=== PATIENT | male | born 1950 | race Caucasian/White ===

== ENCOUNTER → 2016-07-31 | Outpatient (CLI) | payer OTHER ==
[~2016-07-31] MED LIST: ADVIN25/60 INH; ASPCH81X PO; MULTTAB58 PO; NXM/40 PO; PREG1CAP28 PO; SIMV10TA5 PO; VALS320T2 PO
[2016-07-31 17:54] LABS: ALT/SGPT 39 U/L (12-78); AST/SGOT 26 U/L (15-37); BLOOD UREA NITROGEN 16 mg/dl (7-18); BUN/CREATININE RATIO 11.6 (10-20); CALCIUM 9.3 mg/dl (8.5-10.1); CARBON DIOXIDE 30 mmol/L (21-32); CHLORIDE 101 mmol/L (98-107); GLUCOSE 65 mg/dl (70-99); POTASSIUM 3.9 mmol/L (3.5-5.1); SODIUM 138 mmol/L (136-145)
[2016-07-31 17:56] LABS: ALB/GLOB RATIO 1.1 (0.9-2); ALKALINE PHOSPHATASE 79 U/L (45-117); CHOLESTEROL 143 mg/dl (0-200); CHOLESTEROL/HDL RATIO 3.7; HDL CHOLESTEROL 39 mg/dl; LDL CHOLESTEROL CALCULATED 73 mg/dl; TRIGLYCERIDES 153 mg/dl (0-150); VERY LOW DENSITY LIPOPROT CALC 31 mg/dl
[2016-07-31 20:39] LABS: ESTIMATED AVERAGE GLUCOSE 111 mg/dl; HA1C FLAG Normal (Normal)
--- NOTE | 2016-08-04 13:34 | CODING QUERY MEDICAL NECESSITY ---
CQSUPPORTING DIAGNOSIS NEEDED A supporting diagnosis is required for the test/procedure performed on this patient in order for us to be reimbursed by the patient's insurance. Please provide a supporting diagnosis for the following test/procedure listed below next to the test name along with your signature. *If there is no additional diagnosis for this patient that would support the following test/procedure please document that below next to the test/procedure. Test(s)/Procedure(s) that require a supporting diagnosis: DOS 07/31/16 GLYCATED HEMOGLOBIN ORDERED BY HERNANDO HASSAN Provider Signature: Date: Thank you Cintia Chin Health Information Management Once completed, please kindly fax back to [phone] For questions please call [phone]
== END | disposition home or self-care (01) ==
LOC: C.LABPBG 14:16
PROVIDERS: ATTEND Physician Assistant
DX: Z11.59 Encounter for screening for other viral diseases (principal); Z13.1 Encounter for screening for diabetes mellitus; E78.5 Hyperlipidemia, unspecified

== ENCOUNTER → 2016-11-06 | Outpatient (CLI) | payer OTHER ==
--- NOTE | 2016-11-07 07:37 | PAP/PSG TECHNICIAN REPORT ---
[facility] Butter Maker Polysomnogram Report Study name: None Report date: 11/07/2016 Study date: 11/06/2016 Referring Physician: Etelvina Givens PA-C, PA-C Name: LARA BRANDT Interpreting Physician: Michael Funez D.O. Date of : 1950 Butter Maker: Lucita Fang [facility]. Sex: Male Age: 66 StudyType: PSG Weight: 217 lbs Height: 66 years, Height 5' 9" Neck Circum:18.5 inches BMI: 32.04 Medications: Advair Diskus, Aspirin, Esomeprazole 40 mg, Lyrica 75 mg, Simvastatin 10 mg, Valsartan-HCTZ Patient History 66 yr. old male here for a diagnostic sleep study. Patient complains of snoring, and witnessed apneas. Patient is currently on 2 lpm 02. Test was started on room air. Parameters Monitored NPSG: E1-M2, E2-M1, Fp1-M2, Fp2-M1, F3-M2, F4-M2, F4-M1, C3-M2, C4-M2, C4-M1, O1-M2, O2-M2, O2-M1, T3-M2, T4-M1, P3-M2, P4-M1, CHIN1, CHIN2, HR, EKG, Legs, PFLOW, SNOR, FLOW, CFLOW, Tidal Volume, THOR, ABDO, SpO2, PLTH, CPRESS, ETCO2 Wave, ETCO2, pH Sleep Architecture Sleep Stages Time at Lights Off 11:04:06 PM STAGES Time (min.) TST (%) Time at Lights On 5:39:36 AM Wake 135.5 -- Total Recording Time (TRT) 396.00 min. N1 25.5 10 Total Sleep Period (TSP) 278.0 min. N2 184.0 71 Total Sleep Time (TST) 260.0min. N3 3.0 1 Awake Time 136.0 min. REM 47.5 18 Wake after Sleep Onset 20.5 min. Sleep Efficiency (SE) 66 % Sleep Onset Latency (SOMMER) 115.0 min. Number of Stage 1 Shifts None Awakenings 14 Stage Changes 63 Number of REM periods 3 REM 47.5 18 REM Latency 57.5 min. NREM 212.5 82 Body Position Analysis Supine Right Left Side Prone Vertical Total Sleep Time (min.) 317.3 0.0 0.0 0.00 0.0 3.5 Total Sleep Time (%) 100% 0% 0% 0 0% N/A% Total Sleep Time REM (min.) 47.5 0.0 0.0 None 0.0 0.0 Total Sleep Time NREM (min.) 212.5 0.0 0.0 None 0.0 0.0 Intermittent Wake (min.) 57.3 0.0 74.7 None 0.0 3.5 Total Sleep Period (%) 100% None None None None None Arousals Myoclonus (PLM) * Events Count Index Events Count Index Spontaneous 6 1 Events Awake (PLMW) 141 62.4 Respiratory 11 3.5 Events Asleep w/ Arousal (PLMA) 4 0.9 PLM 4 1 Events Asleep w/o Arousal (PLMS) 52 12.0 Snoring 3 1 Total Asleep 56 12.9 Total 24 6 Total 197 30 Respiratory Analysis * CA OA MA CH H RERA Total Count 40 37 8 0 78 0 163 Index 9.2 8.5 1.8 0 18.0 0 37.6 Mean Duration 23.1 27.0 24.7 0.00 24.3 0.0 24.6 Longest Duration 36.4 57.7 28.9 0.00 28.9 0.0 64.0 Respiratory Event Summary Total Supine ~Supine Right Left Prone REM NREM Apneas Count 85 85 N/A N/A N/A N/A 20 65 Index 19.6 20 N/A N/A N/A N/A 25 18 Hypopneas (4% Desat) Count 78 78 N/A N/A N/A N/A 21 57 Index 18.0 18.0 N/A N/A N/A N/A 26.5 16.1 Apneas & All Hypopneas Count 163 163 N/A N/A N/A N/A 41 122 Index 37.6 38 N/A N/A N/A N/A 51.8 34.4 Respiratory Events ([employer]+All Hyp+RERA) Count 163 163 N/A N/A N/A N/A 41 122 Index 37.6 38 N/A N/A N/A N/A 51.8 34.4 Respiratory Related Arousal Count 11 163 N/A N/A N/A N/A 2 13 Index 3.5 3 N/A N/A N/A N/A 3 4 Snoring Analysis Supine Right Left Prone REM NREM Total Snore duration 10.2 min Snores count 457 N/A N/A N/A 177 280 457 Snore mean duration 1.3 Sec Snores index 105 N/A N/A N/A 223.6 79.1 105.5 TST with snoring (%) 3.9% Desaturation Event Summary: Minimum %SpO2 Event Count Mean/Min/Max Duration(sec.) Desaturation Index % Time In Bed > 90 154 25.5 / 7.0 / 58.5 36.3 64.7 86 - 90 57 22.4 / 7.0 / 58.5 27.3 31.9 81 - 85 2 21.9 / 21.5 / 22.3 9.4 3.3 76 - 80 0 N/A 0.0 0.1 71 - 75 0 N/A 0.0 0.0 66 - 70 0 N/A 0.0 0.0 61 - 65 0 N/A 0.0 0.0 56 - 60 0 N/A 0.0 0.0 51 - 55 0 N/A 0.0 0.0 < 50 0 N/A 0.0 0.0 Total REM NREM Awake <50% 0.0 min. 0.0 min. 0.0 min. 0.0 min. 51 - 60% 0.0 min. 0.0 min. 0.0 min. 0.0 min. 61 - 70% 0.0 min. 0.0 min. 0.0 min. 0.0 min. 71 - 80% 0.5 min. 0.0 min. 0.5 min. 0.0 min. 81 - 90% 138.2 min. 5.3 min. 27.7 min. 105.2 min. 91 - 100% 254.3 min. 42.2 min. 184.0 min. 28.2 min. Average 92 94 93 89 Minimum SpO2 78 82 78 81 Desaturation Event Index 29.4 46.7 33.3 17.3 # Desat. Events below 89% 94 12 47 35 Time(%) with Saturation below 89% 19.9 0.6 4.7 14.6 Time(min.) with Saturation below 89% 78.1 2.3 18.3 57.5 Time (mins) REM (mins) NREM (mins) % of TST SpO2 Below 90% 96 21 N75 10.4 SpO2 Below 88% 24 0 0 6 Heart Rate Analysis Min (bpm) Max (bpm) Average (bpm) Awake 40 127 60 NREM 43 64 50 REM 42 61 51 Overall 42 64 50 Supplemental O2 Values Minimum O2 level: None Value Start Time End Time Butter Maker Comments slept in the supine position. Cardiac arrhythmia and PLMs noted. No bruxism noted. Snoring was noted and scored as a2 on a scale of 0 through 5. (0=no snoring, 5=snoring loud enough to be heard through a closed door or down the [address] way. Oxygen was added at 1:23 am, patient was consistently running 85% and under. did not wake to use the restroom during the night. stated, I got some sleep. the bed was comfortable. The final report will be interpreted and signed by a sleep physician. The completed physician report will then be placed in the patient medical record. Therapy (cm H2O) 0 TIB (min.) 395.5 TST (min.) 260.0 Sleep Onset (min.) 115.0 REM Onset From Sleep (min.) 57.5 Sleep Efficiency % 66 Wakefulness (%) 34 Wakefulness (min.) 136.0 NREM 1 (%) 10 NREM 1 (min.) 25.5 NREM 2 (%) 71 NREM 2 (min.) 184.0 NREM 3 (%) 1 NREM 3 (min.) 3.0 REM (%) 18 REM (min.) 47.5 # Arousals 24 Arousal Index 6 # Snore 457 Snore Index 105.5 AHI 37.6 AHI Supine 38 AHI Non-Supine N/A NREM AHI 34.4 REM AHI 51.8 RDI 37.6 # Obstructive Apnea 37 # Central Apnea 40 # Mixed Apnea 8 # Hypopneas 78 RERAs 0 Total Respiratory Events 182 Time Below SpO2 89% (min.) 20.6 Mean NREM SpO2 (%) 93 Mean REM SpO2 (%) 94 Mean Sleep SpO2 (%) 93 Min NREM SpO2 (%) 78 Min REM SpO2 (%) 82 Position Supine (min.) 317.3 Position Non-supine (min.) 0.0 LM Index Sleep 12.9 LM Index NREM 8.5 LM Index REM 32.8 Mean Heart Rate (bpm) 50 Min Heart Rate (bpm) 42
--- NOTE | 2016-11-10 11:38 | CODING QUERY MEDICAL NECESSITY ---
CQSUPPORTING DIAGNOSIS NEEDED A supporting diagnosis is required for the test/procedure performed on this patient in order for us to be reimbursed by the patient's insurance. Please provide a supporting diagnosis for the following test/procedure listed below next to the test name along with your signature. *If there is no additional diagnosis for this patient that would support the following test/procedure please document that below next to the test/procedure. Test(s)/Procedure(s) that require a supporting diagnosis: DOS 11/06/16 SLEEP STUDY ORDERED BY HERNANDO FORBES Provider Signature: Date: Thank you Cintia Chin Health Information Management Once completed, please kindly fax back to [phone] For questions please call [phone]
--- NOTE | 2016-11-11 10:07 | Sleep Study ---
Sleep Study Report Date of Service: 11/06/2016 Sleep Study Report Clinical data: The patient is a 66-year-old male with a BMI of 32.04. He has a history of snoring and observed apneas. He has shortness of breath. This was an in-lab diagnostic polysomnography. Sleep architecture: The total sleep period was 278 minutes. The total sleep time was 260 minutes. The sleep efficiency was moderately reduced to 66 percent. The sleep latency was prolonged to 115 minutes. The REM latency was normal at 57.5 minutes. There were 3 REM periods during the night. Sleep consisted of stage N1 10 percent, stage N2 71 percent, stage N3 1 percent , stage REM 18 percent. Arousal data: The patient had a total of 24 arousals including 6 spontaneous arousals, 11 respiratory arousals, 4 PLM arousals, and 3 snoring arousals. The arousal index was 6. PLM data: The patient had a total of 56 periodic limb movements of sleep for an index of 12.9. There were 4 arousals associated with limb movements for a PLM arousal index of 0.9. EKG: The underlying cardiac rhythm was normal sinus. There were frequent PVCs. There was some areas of bigeminy. The cardiac rates ranged from 42 to 64 beats per minute. The average heart rate was 50 beats per minute. Respiratory data: The patient had a total of 163 respiratory events including 40 central apneas, 37 obstructive apneas, 8 mixed apneas, and 78 hypopneas. The hypopneas were scored according to the 4 percent desaturation rule. The longest apnea was 57.7 seconds. The average apnea was 27 seconds. The mean duration of the hypopneas was 24.3 seconds. The apnea-hypopnea index was significantly elevated at 37.6 events per hour. This reflects moderately severe obstructive sleep apnea. Oximetry data: The average saturation was 92 percent. The minimum saturation was 78 percent. It is notable that nasal cannula oxygen was initiated at 1:23 a.m. because his saturations were consistently running less than 85 percent. He had a total of 78.1 minutes with saturations less than 89 percent. Miter Saw Operator comments: The patient slept in the supine position for the entire night. Cardiac arrhythmia and PLMS were noted. No bruxism noted. Snoring was noted and scored as a 2 on a scale of 0 through 5. Patient did not awaken to use the restroom during the night. Impressions: 1. Obstructive sleep apnea-moderately severe 2. Cardiac arrhythmia-PVCs Comments: The patient has moderately severe apnea. The majority was obstructive but about 25 percent of the event's were central apneas. This was mainly in the 1st hour of sleep. He had a significant delay in sleep onset of almost 2 hours. There was significant oxygen desaturations. This was known from his prior history is he does wear continuous oxygen at home. He does have underlying lung disease. Clearly the patient needs treatment for his moderately severe sleep apnea. He does have hypertension as a comorbidity. Recommendations: 1. It is suggested that the patient be treated with nasal CPAP. In light of the moderate number of central apneas seen during the 1st night study, it is suggested that he have an in-lab CPAP titration study. 2. It would be advised that the patient try to avoid sleeping in the supine position as there are typically is more respiratory events when supine. 3. The patient has an elevated body mass index of 32.04. A weight reduction program is advised. 4. Further suggestions will be made following the trial of nasal CPAP. 5. Clinical correlation is advised to determine the relative significance of the above-noted cardiac arrhythmia. Copies To 1: Michael Funez DO; Etelvina Givens PA-C; Calixto Rain D.O.
== END | disposition home or self-care (01) ==
LOC: C.NEUR 20:00
PROVIDERS: ATTEND Physician Assistant
DX: R06.81 Apnea, not elsewhere classified (principal); Z99.81 Dependence on supplemental oxygen; Z87.891 Personal history of nicotine dependence; R05 Cough; J60 Coalworker's pneumoconiosis; J44.9 Chronic obstructive pulmonary disease, unspecified

== ENCOUNTER → 2017-01-17 | Outpatient (CLI) | payer OTHER ==
--- NOTE | 2017-01-18 05:43 | PAP/PSG TECHNICIAN REPORT ---
[facility] Boat Laborer Polysomnogram Report Study name: None Report date: 01/18/2017 Study date: 01/17/2017 Referring Physician: Thompson Heller M.D. Name: THOMPSON BRANDT Interpreting Physician: Michael Funez D.O. Date of : 1950 Boat Laborer: Lucita Fang [facility]. Sex: Male Age: 66 StudyType: PSG PAP Weight: Height: 66 years, Height BMI: Medications: Advair Diskus, Aspirin, Esomeprazole 40 mg, Lyrica 75 mg, Simvastatin 10 mg, Valsartan-HCTZ Patient History 66 yr. old male here for titration sleep study. Patients PSG was done on 11/09/16 and had complex sleep apnea with an AHI of 37.6. Parameters Monitored NPSG: E1-M2, E2-M1, Fp1-M2, Fp2-M1, F3-M2, F4-M2, F4-M1, C3-M2, C4-M2, C4-M1, O1-M2, O2-M2, O2-M1, T3-M2, T4-M1, P3-M2, P4-M1, CHIN1, CHIN2, HR, EKG, Legs, PFLOW, SNOR, FLOW, CFLOW, Tidal Volume, THOR, ABDO, SpO2, PLTH, CPRESS, ETCO2 Wave, ETCO2, pH Sleep Architecture Sleep Stages Time at Lights Off 10:06:43 PM STAGES Time (min.) TST (%) Time at Lights On 5:12:13 AM Wake 71.0 -- Total Recording Time (TRT) 425.50 min. N1 15.0 4 Total Sleep Period (TSP) 364.5 min. N2 217.5 61 Total Sleep Time (TST) 354.5min. N3 39.0 11 Awake Time 71.0 min. REM 83.0 23 Wake after Sleep Onset 23.5 min. Sleep Efficiency (SE) 83 % Sleep Onset Latency (SOMMER) 47.5 min. Number of Stage 1 Shifts None Awakenings 9 Stage Changes 38 Number of REM periods 5 REM 83.0 23 REM Latency 50.0 min. NREM 271.5 77 Body Position Analysis Supine Right Left Side Prone Vertical Total Sleep Time (min.) 290.7 0.0 100.6 100.63 0.0 3.0 Total Sleep Time (%) 72% 0% 28% 28 0% N/A% Total Sleep Time REM (min.) 49.5 0.0 33.5 None 0.0 0.0 Total Sleep Time NREM (min.) 204.4 0.0 67.1 None 0.0 0.0 Intermittent Wake (min.) 36.8 0.0 31.2 None 0.0 3.0 Total Sleep Period (%) 72% None None None None None Arousals Myoclonus (PLM) * Events Count Index Events Count Index Spontaneous 1 0 Events Awake (PLMW) 71 60.0 Respiratory 4 0.7 Events Asleep w/ Arousal (PLMA) 0 0.0 PLM 0 0 Events Asleep w/o Arousal (PLMS) 28 4.7 Snoring 3 1 Total Asleep 28 4.7 Total 8 1 Total 99 14 Respiratory Analysis * CA OA MA CH H RERA Total Count 55 7 0 0 255 0 317 Index 9.3 1.2 0.0 0 43.2 0 53.7 Mean Duration 17.1 19.8 0.0 0.00 26.4 0.0 24.6 Longest Duration 26.5 30.8 0.0 0.00 0.0 0.0 52.9 Respiratory Event Summary Total Supine ~Supine Right Left Prone REM NREM Apneas Count 62 33 29 N/A 29 N/A 6 56 Index 10.5 8 17 N/A 17.3 N/A 4 12 Hypopneas (4% Desat) Count 255 210 45 N/A 45 N/A 34 221 Index 43.2 49.6 27 N/A 26.8 N/A 24.6 48.8 Apneas & All Hypopneas Count 317 243 74 N/A 74 N/A 40 277 Index 53.7 57 44 N/A 44 N/A 28.9 61.2 Respiratory Events (Animal Husbandry Professor+All Hyp+RERA) Count 317 243 74 N/A 74 N/A 40 277 Index 53.7 57 44 N/A 44.1 N/A 28.9 61.2 Respiratory Related Arousal Count 4 243 0 N/A 0 N/A 0 4 Index 0.7 1 0 N/A 0 N/A 0 1 Snoring Analysis Supine Right Left Prone REM NREM Total Snore duration 14.1 min Snores count 276 N/A 274 N/A 51 499 550 Snore mean duration 1.5 Sec Snores index 65 N/A 163 N/A 36.9 110.3 93.1 TST with snoring (%) 4.0% Desaturation Event Summary: Minimum %SpO2 Event Count Mean/Min/Max Duration(sec.) Desaturation Index % Time In Bed > 90 215 22.5 / 9.0 / 60.0 186.5 16.4 86 - 90 254 20.8 / 9.0 / 55.3 55.5 65.2 81 - 85 7 23.2 / 6.5 / 41.3 5.7 17.5 76 - 80 1 6.5 / 6.5 / 6.5 15.7 0.9 71 - 75 0 N/A 0.0 0.1 66 - 70 0 N/A 0.0 0.0 61 - 65 0 N/A 0.0 0.0 56 - 60 0 N/A 0.0 0.0 51 - 55 0 N/A 0.0 0.0 < 50 0 N/A 0.0 0.0 Total REM NREM Awake <50% 0.0 min. 0.0 min. 0.0 min. 0.0 min. 51 - 60% 0.0 min. 0.0 min. 0.0 min. 0.0 min. 61 - 70% 0.0 min. 0.0 min. 0.0 min. 0.0 min. 71 - 80% 4.1 min. 1.3 min. 1.6 min. 1.2 min. 81 - 90% 348.4 min. 68.6 min. 226.4 min. 53.4 min. 91 - 100% 69.2 min. 13.1 min. 43.5 min. 12.6 min. Average 88 88 88 88 Minimum SpO2 74 74 78 75 Desaturation Event Index 50.2 33.3 62.8 22.0 # Desat. Events below 89% 344 44 276 24 Time(%) with Saturation below 89% 62.2 12.0 41.7 8.4 Time(min.) with Saturation below 89% 262.2 50.8 175.9 35.5 Time (mins) REM (mins) NREM (mins) % of TST SpO2 Below 90% 330 46 N284 74.3 SpO2 Below 88% 113 0 0 48 Heart Rate Analysis Min (bpm) Max (bpm) Average (bpm) Awake 41 129 72 NREM 32 81 58 REM 45 71 57 Overall 32 81 58 Supplemental O2 Values Minimum O2 level: None Value Start Time End Time Boat Laborer Comments Mr. Brandt slept in the left and supine positions. Cardiac arrhythmia notes. No PLMs noted. No bruxism noted. CPAP was initiated at +4 CMH2O room air and up-titrated to level of +7 CMH2O Cflex 1. Mr. Brandt was switched to BiPAP for complex sleep apnea after CPAP failed. PAP initiated at an IPAP of +8 CMH2O and an EPAP of +4 CMH2O up-titrated to a level of: IPAP +20 CMH2O, EPAP + 10 CMH20 BiFlex 2 with a rate of 12 BPM, which nearly eliminated all respiratory events and snoring. A medium [employer] and [employer] Simplus was used during titration. Mr. Brandt did not wake to use the restroom during the night. Mr. Brandt stated, "(Example) I did not sleep as well as I do when I am in my own bed". The final report will be interpreted and signed by a sleep physician. The completed physician report will then be placed in the patient medical record. Therapy Event: Therapy (cm H20) 4 5 6 7 8/4 9/4 10/4 11/5 12/5 Total Time at Pressure (min.) 61.1 13.7 9.5 44.4 22.4 13.1 12.6 19.6 10.1 TST at Pressure (min.) 13.8 13.7 9.5 43.9 22.4 12.6 12.6 19.6 10.1 # Periods 1 1 1 1 1 1 1 1 1 Sleep Onset (min.) 47.3 0.0 0.0 0.0 0.0 0.0 0.0 0.0 0.0 REM Onset (min.) N/A N/A N/A 13.1 N/A N/A N/A N/A 0.5 Sleep Efficiency % 22 100 100 98 100 96 100 100 100 Wakefulness (%) 77.4 0.0 0.0 1.1 0.0 3.8 0.0 0.0 0.0 Wakefulness (min.) 47.3 0.0 0.0 0.5 0.0 0.5 0.0 0.0 0.0 NREM 1 (%) 4.9 0.0 0.0 1.1 0.0 3.8 0.0 0.0 0.0 NREM 1 (min.) 3.0 0.0 0.0 0.5 0.0 0.5 0.0 0.0 0.0 NREM 2 (%) 17.7 100.0 48.1 35.7 43.1 17.7 100.0 100.0 4.9 NREM 2 (min.) 10.8 13.7 4.5 15.8 9.7 2.3 12.6 19.6 0.5 NREM 3 (%) 0.0 0.0 51.9 19.3 56.9 74.6 0.0 0.0 0.0 NREM 3 (min.) 0.0 0.0 4.9 8.6 12.7 9.8 0.0 0.0 0.0 REM (%) 0.0 0.0 0.0 42.8 0.0 0.0 0.0 0.0 95.1 REM (min.) 0.0 0.0 0.0 19.0 0.0 0.0 0.0 0.0 9.6 # Arousals 0 1 0 0 0 0 1 0 0 Arousal Index 0.0 4.4 0.0 0.0 0.0 0.0 4.8 0.0 0.0 # Snore 41 86 65 71 14 51 30 44 27 Snore Index 178.4 377.6 412.2 97.0 37.5 242.9 142.5 135.0 160.8 AHI 52.2 52.7 88.8 34.1 16.1 76.2 104.5 76.7 65.5 AHI Supine N/A N/A N/A 80.5 16.1 76.2 104.5 76.7 65.5 AHI Non-Supine 52.2 52.7 88.8 25.8 N/A N/A N/A N/A N/A NREM AHI 52.2 52.7 88.8 55.4 16.1 76.2 104.5 76.7 0.0 REM AHI N/A N/A N/A 6.3 N/A N/A N/A N/A 68.9 RDI 52.2 52.7 88.8 34.1 16.1 76.2 104.5 76.7 65.5 # Obstructive 0 0 0 1 0 0 0 0 5 # Central Ap 6 5 3 13 2 0 6 5 0 # Mixed 0 0 0 0 0 0 0 0 0 # Hypopneas 6 7 11 11 4 16 16 20 6 RERAS 0 0 0 0 0 0 0 0 0 Total Respiratory Events 12 12 14 25 6 16 22 25 11 Time Below SpO2 89.00% (min.) 11.2 13.1 7.8 37.8 21.4 8.9 7.6 12.5 8.6 Mean NREM SpO2 (%) 87 86 86 87 85 87 87 87 87 Mean REM SpO2 (%) N/A N/A N/A 87 N/A N/A N/A N/A 84 Mean Sleep SpO2 (%) 87 86 86 87 85 87 87 87 85 Min NREM SpO2 (%) 83 81 80 80 80 80 78 78 85 Min REM SpO2 (%) N/A N/A N/A 79 N/A N/A N/A N/A 74 Position Supine (min.) 0.0 0.0 0.0 6.7 22.4 12.6 12.6 19.6 10.1 Position Non-supine (min.) 13.8 13.7 9.5 37.2 0.0 0.0 0.0 0.0 0.0 LM Index Sleep 8.7 52.7 0.0 1.4 0.0 0.0 0.0 3.1 11.9 LM Index NREM 8.7 52.7 0.0 2.4 0.0 0.0 0.0 3.1 0.0 LM Index REM N/A N/A N/A 0.0 N/A N/A N/A N/A 12.5 Mean Heart Rate (bpm) 66 64 62 63 65 64 60 59 62 Min Heart Rate (bpm) 32 60 58 45 60 57 54 52 58 Therapy (cm H20) 13/6 14/6 15/6 16/6 17/7 18/8 19/9 20/10 Total Time at Pressure (min.) 18.3 18.3 30.5 32.5 14.2 24.5 48.3 32.4 TST at Pressure (min.) 15.8 18.3 27.5 32.0 11.7 24.5 47.8 18.9 # Periods 1 1 1 1 1 1 1 1 Sleep Onset (min.) 0.0 0.0 0.0 0.0 0.0 0.0 0.0 0.0 REM Onset (min.) 0.0 N/A N/A 19.4 0.0 N/A 33.7 0.0 Sleep Efficiency % 86 100 90 98 82 100 99 58 Wakefulness (%) 13.7 0.0 9.8 1.5 17.6 0.0 1.0 41.7 Wakefulness (min.) 2.5 0.0 3.0 0.5 2.5 0.0 0.5 13.5 NREM 1 (%) 8.2 0.0 6.6 4.6 38.8 0.0 1.0 0.0 NREM 1 (min.) 1.5 0.0 2.0 1.5 5.5 0.0 0.5 0.0 NREM 2 (%) 26.6 100.0 83.6 44.2 33.9 100.0 73.9 0.0 NREM 2 (min.) 4.9 18.3 25.5 14.4 4.8 24.5 35.7 0.0 NREM 3 (%) 0.0 0.0 0.0 9.2 0.0 0.0 0.0 0.0 NREM 3 (min.) 0.0 0.0 0.0 3.0 0.0 0.0 0.0 0.0 REM (%) 51.5 0.0 0.0 40.4 9.7 0.0 24.0 58.3 REM (min.) 9.4 0.0 0.0 13.1 1.4 0.0 11.6 18.9 # Arousals 0 0 2 2 1 0 1 0 Arousal Index 0.0 0.0 4.4 3.8 5.1 0.0 1.3 0.0 # Snore 11 4 8 21 7 51 19 0 Snore Index 41.8 13.1 17.5 39.4 36.0 125.1 23.8 0.0 AHI 49.4 75.5 58.9 37.5 77.1 58.9 52.7 31.7 AHI Supine 49.4 75.5 58.9 14.4 88.7 58.9 52.7 31.7 AHI Non-Supine N/A N/A N/A 45.7 41.8 N/A N/A N/A NREM AHI 94.3 75.5 58.9 44.5 87.4 58.9 56.3 N/A REM AHI 19.1 N/A N/A 27.4 0.0 N/A 41.4 31.7 RDI 49.4 75.5 58.9 37.5 77.1 58.9 52.7 31.7 # Obstructive 0 0 0 1 0 0 0 0 # Central Ap 1 0 4 6 4 0 0 0 # Mixed 0 0 0 0 0 0 0 0 # Hypopneas 12 23 23 13 11 24 42 10 RERAS 0 0 0 0 0 0 0 0 Total Respiratory Events 13 23 27 20 15 24 42 10 Time Below SpO2 89.00% (min.) 10.5 14.4 19.3 22.9 5.9 10.1 12.6 2.0 Mean NREM SpO2 (%) 89 87 87 88 89 89 90 N/A Mean REM SpO2 (%) 87 N/A N/A 88 87 N/A 89 90 Mean Sleep SpO2 (%) 88 87 87 88 88 89 90 90 Min NREM SpO2 (%) 82 84 80 81 81 81 81 N/A Min REM SpO2 (%) 84 N/A N/A 85 86 N/A 86 80 Position Supine (min.) 15.8 18.3 27.5 8.4 8.8 24.5 47.8 18.9 Position Non-supine (min.) 0.0 0.0 0.0 23.6 2.9 0.0 0.0 0.0 LM Index Sleep 7.6 0.0 0.0 9.4 5.1 0.0 0.0 6.3 LM Index NREM 0.0 0.0 0.0 3.2 5.8 0.0 0.0 N/A LM Index REM 12.7 N/A N/A 18.3 0.0 N/A 0.0 6.3 Mean Heart Rate (bpm) 60 56 54 53 54 52 51 52 Min Heart Rate (bpm) 52 52 48 46 50 48 44 47
--- NOTE | 2017-01-21 11:07 | Sleep Study ---
Sleep Study Report Date of Service: 01/17/2017 Sleep Study Report Clinical data: The patient is a 66-year-old male with a history of snoring and observed apneas. A diagnostic sleep study was done 11/06/2016 and this showed moderately severe sleep apnea with an apnea-hypopnea index of 37.6. There was central apneas as well as obstructive apneas present. He had frequent PVCs. The patient is [facility] a trial of nasal CPAP or BiPAP. Sleep architecture: The total sleep period was 364.5 minutes. The total sleep time was 354.5 minutes. The sleep efficiency was mildly decreased to 83%. This was mainly related to a delayed sleep onset of 47.5 minutes. Wake after sleep onset was only 23.5 minutes. The REM latency was 50 minutes. Sleep consisted of stage N1 4%, stage N2 61%, stage N3 11%, and stage REM 23%. Arousal data: The patient had a total of 8 arousals including 1 spontaneous arousal, 4 respiratory arousals, and 3 snoring arousals. The arousal index was 1. PLM data: The patient had a total of 28 periodic limb movements of sleep for a PLM index of 4.7. There were 0 arousals associated with limb movements. EKG: The underlying cardiac rhythm was normal sinus. There were PVCs throughout the night. At times they were frequent. The cardiac rates ranged from 45-81 beats per minute with an average heart rate of 58 beats per minute. Respiratory data: The patient was treated 1st with nasal CPAP. He had fairly frequent central apneas with CPAP and thus had complex sleep apnea. He was switched to BiPAP which was titrated to a final pressure of 20/10 the patient had a total of 317 respiratory events including 55 central apneas, 7 obstructive apneas, and 255 hypopneas. The apnea-hypopnea index was severely elevated at 53.7. The longest central apnea was 26.5 seconds. The longest obstructive apnea was 30.8 seconds. The mean duration of hypopneas was 26.4 seconds. There were no central apneas after 3:30 a.m.. He did persist with hypopneas. At the final pressure which was only 4 a total sleep time of 18.9 minutes he had an apnea- hypopnea index of 31.7. The trend appeared to be that the hypopneas were diminishing. Oximetry data: The average saturation throughout the night was 88%. The minimum saturation was 74%. He had a total of 262.2 minutes with saturations less than 89%. [employer] comments: The patient slept in the left and supine positions. Cardiac arrhythmia is were noted. No significant PLMS noted. No bruxism noted. CPAP was initiated at 4 cm and up titrated to a level of 7 cm. He was switched to BiPAP for complex sleep apnea after CPAP failed. The BiPAP was gradually titrated up to a final pressure of 20/10 with Bi-Flex 2 and with the rate of 12 beats per minute. A medium Monsalve and Paykel Simplus mask was used during the titration. The patient did not awaken to use the restroom during the night and after the study the patient stated "I slept pretty good". Impressions: 1. Obstructive sleep apnea-severe with complex sleep apnea upon treatment 2. Cardiac arrhythmia-PVCs 3. Nocturnal hypoxia despite BiPAP Comments: The patient was treated with CPAP and had fairly frequent central apneas. He was then switched to BiPAP. His sleep was very well consolidated despite the fact that he persisted with fairly frequent hypopneas. He had a decrease in his oxygen saturations despite treatment. He does have an underlying history of COPD. Because of the central sleep apneas a backup rate was initiated when he was on BiPAP. It appears he will need to have oxygen instilled through his BiPAP. If he does not already have oxygen at home he will need an overnight pulse oximetry study done with BiPAP in place in order to qualify him. He should have compliance stated done in approximately 2 weeks to see if his respiratory events are being resolved. The patient's PVCs seemed to be somewhat less than during the diagnostic study although they persisted. Recommendations: 1. It is suggested that the patient be started on BiPAP with pressures of 20/10 and Bi-Flex 2 with a backup rate of 12 breaths per minute. 2. It is suggested that he be ordered a medium Monsalve and Paykel simplus mask 3. It is advised that he have an overnight pulse oximetry study done with the BiPAP in place to qualify him for oxygen into the BiPAP. If he already has oxygen at home it would be suggested that 2 L be instilled into the BiPAP, and then an overnight pulse oximetry study be done. 4. If possible the patient should be advised to avoid sleeping in the supine position. Typically there is more sleep apnea when patients are supine. The majority of the night during this study he was supine. 5. The patient should be seen in follow-up between day 31 day 90 of receiving his BiPAP. Copies To 1: Michael Funez DO; Neena Joya DO; Thompson Heller MD
== END | disposition home or self-care (01) ==
LOC: C.NEUR 21:00
PROVIDERS: ATTEND Internal Medicine Critical Care Medicine
DX: G47.33 Obstructive sleep apnea (adult) (pediatric) (principal); R06.83 Snoring

== ENCOUNTER → 2017-03-05 | Outpatient (CLI) | payer OTHER ==
--- NOTE | 2017-03-05 13:37 | DIAGNOSTIC IMAGING REPORT ---
(CHEST) THORAX WITHOUT CT DOSE: 720.06 mGy.cm HISTORY: Dysphagia Z99.81 Oxygen [id number] [id number] ILD (interstitial l TECHNIQUE: Multiaxial CT images of the chest were performed without contrast. A dose lowering technique was utilized adhering to the principles of ALARA. COMPARISON: 08/14/2012 FINDINGS: Findings of progressive emphysematous and interstitial change throughout both hemithoraces. This is most prominent in the upper lung regions bilaterally with reference to change, although changes are also identified in the peripheral margins of both hemithoraces in the mid to lower regions. Slight progression of basilar pleural reactive change. No significant interval nodularity. Moderately progressive bleb formation bilaterally. No evidence for pneumothorax. IMPRESSION: 1. Progressive emphysematous and interstitial/fibrotic change throughout both hemithoraces. 2. No evidence for significant interval nodularity or consolidative infiltrative change. 3. Progressive bleb formation bilaterally with no evidence for pneumothorax The above report was generated using voice recognition software. It may contain grammatical, syntax or spelling errors. Electronically signed by: Malachi Medina M.D. 03/05/2017 1:35 PM Dictated Date/Time: 03/05/2017 1:28 PM
--- NOTE | 2017-03-05 15:10 | ECHOCARDIOGRAM REPORT ---
*NOTICE TO RECEIVING DEMOCRAT AGENCY This information is strictly Confidential and protected under [place] law. [place] law prohibits you from making any further disclosure of this information unless further disclosure is expressly permitted by the written consent of the person to whom it pertains or is authorized by law. A general authorization for the release of medical or other information is not sufficient for this purpose. Hospital accepts no responsibility if the information is made available to any other person, INCLUDING THE PATIENT. Interpretation Summary * Name: THOMPSON BRANDT Study Date: 03/05/2017 12:40 PM BP: 147/70 mmHg * Patient Location: [facility] HR: 88 * : 1950 (M/d/yyyy) Gender: Male Height: 69 in * Age: 66 yrs Ethnicity: CA Weight: 200 lb * Ordering Physician: Thompson Heller * Referring Physician: Thompson Heller. * Performed By: Rae Gould RCS * * Reason For Study: SOB / COPD * BSA: 2.1 m2 * -- Conclusions -- * Left ventricular systolic function is normal. * No regional wall motion abnormalities noted. * Ejection Fraction = 55-60%. * There is mild concentric left ventricular hypertrophy. * Grade I diastolic dysfunction, (abnormal relaxation pattern). * There is mild mitral regurgitation. * There is mild tricuspid regurgitation. Procedure Details * A complete two-dimensional transthoracic echocardiogram was performed (2D, M-mode, Doppler and color flow Doppler). Left Ventricle * The left ventricle is normal in size. * There is mild concentric left ventricular hypertrophy. * Left ventricular systolic function is normal. * Ejection Fraction = 55-60%. * No regional wall motion abnormalities noted. Right Ventricle * The right ventricle is normal size. * The right ventricular systolic function is normal as assessed by tricuspid annular plane systolic excursion (TAPSE) (normal >1.5 cm). Atria * The left atrial size is normal. * Right atrial size is normal. * No ASD detected; PFO is not assessed. Mitral Valve * The mitral valve anatomy is normal. * There is no mitral valve stenosis. * There is mild mitral regurgitation. Tricuspid Valve * The tricuspid valve anatomy is normal. * There is mild tricuspid regurgitation. Aortic Valve * The aortic valve is normal in structure and function. * No hemodynamically significant valvular aortic stenosis. * No aortic regurgitation is present. Pulmonic Valve * The pulmonary valve is not well seen, but the Doppler examination is normal without significant regurgitation or stenosis. Great Vessels * The aortic root is normal size. * The pulmonary artery is not well visualized, but is probably normal size. Pericardium/Pleural * There is no pericardial effusion. Great Vessels * Normal inferior vena cava size and collapsability with sniff indicates a normal right atrial pressure of 3 mmHg Left Ventricular Diastolic Function * Grade I diastolic dysfunction, (abnormal relaxation pattern). MMode 2D Measurements and Calculations IVSd 1.6 cm IVSs 1.9 cm LVIDd 5.2 cm LVIDs 3.4 cm LVPWd 1.1 cm LVPWs 1.4 cm IVS/LVPW 1.5 FS 35.0 % EDV(Teich) 131.1 ml ESV(Teich) 47.3 ml EF(Teich) 63.9 % EDV(cubed) 142.8 ml ESV(cubed) 39.1 ml EF(cubed) 72.6 % % IVS thick 22.8 % % LVPW thick 32.9 % LV mass(C)d 289.7 grams LV mass(C)dI 140.2 grams/m\S\2 LV mass(C)s 226.1 grams LV mass(C)sI 109.5 grams/m\S\2 SV(Teich) 83.8 ml SI(Teich) 40.6 ml/m\S\2 SV(cubed) 103.7 ml SI(cubed) 50.2 ml/m\S\2 Ao root diam 3.4 cm Ao root area 9.1 cm\S\2 ACS 2.0 cm LA dimension 4.0 cm LA/Ao 1.2 LVOT diam 2.0 cm LVOT area 3.1 cm\S\2 LVAd ap4 34.4 cm\S\2 LVLd ap4 8.2 cm EDV(MOD-sp4) 119.4 ml EDV(sp4-el) 123.3 ml LVAs ap4 19.5 cm\S\2 LVLs ap4 6.4 cm ESV(MOD-sp4) 49.9 ml ESV(sp4-el) 50.7 ml EF(MOD-sp4) 58.2 % EF(sp4-el) 58.9 % LVAd ap2 37.9 cm\S\2 LVLd ap2 8.6 cm EDV(MOD-sp2) 135.8 ml EDV(sp2-el) 141.0 ml LVAs ap2 23.7 cm\S\2 LVLs ap2 7.2 cm ESV(MOD-sp2) 67.4 ml ESV(sp2-el) 66.3 ml EF(MOD-sp2) 50.4 % EF(sp2-el) 52.9 % LVLd %diff 5.6 % EDV(MOD-bp) 131.1 ml LVLs %diff 11.3 % ESV(MOD-bp) 58.3 ml EF(MOD-bp) 55.5 % SV(MOD-sp4) 69.5 ml SI(MOD-sp4) 33.6 ml/m\S\2 SV(MOD-sp2) 68.4 ml SI(MOD-sp2) 33.1 ml/m\S\2 SV(MOD-bp) 72.8 ml SI(MOD-bp) 35.2 ml/m\S\2 SV(sp4-el) 72.6 ml SI(sp4-el) 35.1 ml/m\S\2 SV(sp2-el) 74.6 ml SI(sp2-el) 36.1 ml/m\S\2 Doppler Measurements and Calculations MV E max piotr 86.8 cm/sec MV A max piotr 116.5 cm/sec MV E/A 0.75 MV P1/2t max piotr 110.9 cm/sec MV P1/2t 40.1 msec MVA(P1/2t) 5.5 cm\S\2 MV dec slope 809.0 cm/sec\S\2 MV dec time 0.18 sec Ao V2 max 147.1 cm/sec Ao max PG 8.7 mmHg Ao max PG (full) 5.4 mmHg CHIP(V,A) 1.9 cm\S\2 CHIP(V,D) 1.9 cm\S\2 LV V1 max PG 3.3 mmHg LV V1 max 90.6 cm/sec PA V2 max 110.2 cm/sec PA max PG 4.9 mmHg PI max piotr 199.0 cm/sec PI max PG 15.8 mmHg PI dec slope 273.2 cm/sec\S\2 PI P1/2t 213.4 msec TR max piotr 343.5 cm/sec
== END | disposition home or self-care (01) ==
LOC: C.CPL 12:30
PROVIDERS: ATTEND Internal Medicine Critical Care Medicine
DX: Z99.81 Dependence on supplemental oxygen (principal); R09.02 Hypoxemia; J84.9 Interstitial pulmonary disease, unspecified

== ENCOUNTER → 2017-04-17 | Outpatient (CLI) | payer OTHER ==
[2017-04-17 18:12] LABS: HEMATOCRIT 45.2 % (42-52); HEMOGLOBIN 15.5 g/dL (14.0-18.0); MEAN CELL VOLUME 95.4 fL (80-100); MEAN CORPUSCULAR HEMOGLOBIN 32.7 pg (25-34); MEAN CORPUSCULAR HGB CONC 34.3 g/dl (32-36); MEAN PLATELET VOLUME 10.6 fL (7.4-10.4); PLATELET COUNT 174 K/uL (130-400); RED CELL DISTRIBUTION WIDTH CV 14.2 % (11.5-14.5); RED CELL DISTRIBUTION WIDTH SD 49.4 fL (36.4-46.3); WHITE BLOOD COUNT 7.13 K/uL (4.8-10.8)
[2017-04-17 18:22] LABS: PTT PATIENT 27.5 SECONDS (21.0-31.0)
[2017-04-17 19:19] LABS: ALT/SGPT 26 U/L (12-78); AST/SGOT 21 U/L (15-37); BLOOD UREA NITROGEN 20 mg/dl (7-18); CALCIUM 9.1 mg/dl (8.5-10.1); CARBON DIOXIDE 26 mmol/L (21-32); CREATININE 1.26 mg/dl (0.60-1.40); GLUCOSE 84 mg/dl (70-99); POTASSIUM 3.7 mmol/L (3.5-5.1); SODIUM 133 mmol/L (136-145); TOTAL PROTEIN 7.5 gm/dl (6.4-8.2)
[2017-04-17 19:20] LABS: ALKALINE PHOSPHATASE 70 U/L (45-117); CHOLESTEROL 137 mg/dl (0-200); LDL CHOLESTEROL CALCULATED 70 mg/dl
== END | disposition home or self-care (01) ==
LOC: C.LABPBG 15:21
PROVIDERS: ATTEND Family Medicine
DX: Z01.818 Encounter for other preprocedural examination (principal); E78.5 Hyperlipidemia, unspecified; I10 Essential (primary) hypertension

== ENCOUNTER → 2017-04-27 | Outpatient (CLI) | payer OTHER ==
[~2017-04-27] MED LIST changes: +REGADENOSON 0.4 MG/5 ML SYR ONE
--- NOTE | 2017-04-27 23:34 | Myocardial Perfusion Study ---
Myocardial Perfusion Study Rpt Myocardial Perfusion Study Rpt Myocardial Perfusion Study Rpt ONE DAY NUCLEAR MEDICINE LEXISCAN TECHNETIUM 99M MYOCARDIAL PERFUSION SCAN Indication: Dyspnea on exertion, chest tightness Baseline ECG: Sinus bradycardia, no ST abnormalities. Ventricular rate 69. Stress ECG: No Lexiscan induced ST changes. Occasional PVCs. HR alicia from 59 to 88 representing 57% MPHR. Chest pain reproduced with Lexiscan. Technique: For the stress portion of the study 31.7 mCi of Technetium 99m Cardiolite IV was injected at 11:15 am on 04/27/17. 30 minutes following the injection, imaging of the heart was performed in multiple projections. For the rest portion of the study, 10.9 mCi of Technetium 99m Cardiolite was injected IV at 09:30 am. One hour following the injection, imaging of the hear was performed in the same projections. Findings: Rotating raw images were reviewed in detail. Potential sources of attenuation include diaphragm shadow, and minimal gut uptake impacting the inferior imaging border of the heart. No significant extracardiac pathologic uptake. Short axis, vertical long axis and horizontal long axis images were reviewed in detail. No visual TID. Subtle, small fixed base to mid anteroseptal defect. No corresponding wall motion abnormality. Normal LV size. EDV 118 ml. Calculated EF 57%. No regional wall motion abnormalities. SUMMARY: 1. Negative myocardial perfusion scan for Lexiscan induced ischemia. 2. Subtle fixed anteroseptal defect without corresponding wall motion abnormality likely artifact but could represent a small prior infarct in the setting of septal Qwaves on ECG. 3. Normal LV size and function. LVEF 57% with no regional wall motion abnormalities. 4. Non-diagnostic stress ECG due to inability to reach target HR with Lexiscan.
== END | disposition home or self-care (01) ==
LOC: C.NUCL 08:54
PROVIDERS: ATTEND Internal Medicine Cardiovascular Disease
DX: E78.5 Hyperlipidemia, unspecified (principal); I10 Essential (primary) hypertension; I65.29 Occlusion and stenosis of unspecified carotid artery; R06.02 Shortness of breath; R07.89 Other chest pain

== ENCOUNTER → 2017-05-29 | Outpatient (CLI) | payer OTHER ==
[~2017-05-29] MED LIST changes: +FURO20TA PO; -MULTTAB58 PO; -REGADENOSON 0.4 MG/5 ML SYR ONE
[2017-05-29 18:31] LABS: BLOOD UREA NITROGEN 16 mg/dl (7-18); CALCIUM 9.4 mg/dl (8.5-10.1); CARBON DIOXIDE 30 mmol/L (21-32); CREATININE 1.36 mg/dl (0.60-1.40); GLUCOSE 83 mg/dl (70-99); SODIUM 134 mmol/L (136-145)
== END | disposition home or self-care (01) ==
LOC: C.LABPBG 13:18
PROVIDERS: ATTEND Family Medicine
DX: I10 Essential (primary) hypertension (principal)

== ENCOUNTER → 2017-07-02 | Outpatient (CLI) | payer OTHER ==
--- NOTE | 2017-07-03 07:39 | DIAGNOSTIC IMAGING REPORT ---
PET/CT CLINICAL HISTORY: Pulmonary nodule. TECHNIQUE: A PET/CT was performed from the skull base through the upper thighs following intravenous injection of 12.57 mCi of F 18 FDG IV. The injection was performed at 8:12 AM on July 02, 2017 and imaging began at 9:13 AM on July 02, 2017. Unenhanced CT was performed for attenuation correction purposes and anatomic localization. COMPARISON STUDY: Chest CTs August 14, 2012 and March 05, 2017. FINDINGS: Head and neck: Visualized portions of the brain parenchyma demonstrate an old right occipital lobe infarct. There is no cervical lymphadenopathy. Mucosal uptake within the neck is likely physiologic. Chest: There has been significant progression of dense airspace opacity throughout the right upper lobe since chest CT of March 05, 2017. This has marked FDG uptake with an SUV max of 14.4. The 1.9 cm nodular density within the right upper lobe shown on chest CT of March 05, 2017 is obscured on this exam. Emphysema and suspected interstitial lung disease is noted. Lungs are suboptimally assessed due to respiratory motion artifact. A nonenlarged right paratracheal lymph node shown image 77 measures 9 mm short axis diameter. This node has an SUV max of 5.6. There are multiple additional FDG avid mediastinal and right hilar lymph nodes. SUV max for the right hilum is 6.7. The nodes are difficult to measure on the unenhanced CT. There is a trace right pleural effusion. There is no pneumothorax. The heart is mildly enlarged. Abdomen and Pelvis: There is no abnormal FDG uptake within the abdomen or the pelvis. No abdominal or pelvic lymphadenopathy is present. Postoperative findings within the spine are noted. Musculoskeletal: No suspicious skeletal uptake is identified. IMPRESSION: 1. Significant progression of extensive FDG avid right upper lobe airspace opacity since exam of March 05, 2017. Pneumonia is favored. A neoplastic process such as lymphoma or atypical presentation for lung carcinoma is within the differential although considered less likely. Nodular densities within the right upper lobe on exam of March 05, 2017 are obscured on this exam. A follow-up chest CT in one to 2 months to ensure resolution is recommended. 2. Mild enlarged moderately FDG avid mediastinal and right hilar lymph nodes which are likely reactive but should be assessed on subsequent CT as a neoplastic process could appear similar. 3. Trace right pleural effusion. Electronically signed by: Nelson Pringle M.D. 07/03/2017 7:38 AM Dictated Date/Time: 07/02/2017 10:52 AM
== END | disposition home or self-care (01) ==
LOC: C.PET 07:52
PROVIDERS: ATTEND Internal Medicine Critical Care Medicine
DX: R91.1 Solitary pulmonary nodule (principal)

== ENCOUNTER → 2017-08-06 | Outpatient (CLI) | payer OTHER ==
[~2017-08-06] MED LIST changes: +ADVIN50/60 INH; +IPRASOL4 INH; +LSX20 PO; +MULT-506 PO; +PREG1CAP70 PO; +UMEC1INH INH; +VNTHFA/IN INH
--- NOTE | 2017-08-06 16:10 | DIAGNOSTIC IMAGING REPORT ---
(CHEST) THORAX WITHOUT CLINICAL HISTORY: 66 years-old Male presenting with J44.9 Chronic obstructive pulmonary disease K21.9 GERD, black lung, pulmonary nodules, hypertension. TECHNIQUE: Multidetector CT imaging of the chest was performed without the use of intravenous contrast. IV contrast: None. A dose lowering technique was used consistent with the principles of ALARA (as low as reasonably achievable). COMPARISON: 03/05/2017. CT DOSE (mGy.cm): The estimated cumulative dose is 633.79 mGy.cm. FINDINGS: Roll Line Operator topogram: Extensive chronic lung disease. On soft tissue windows, normal thyroid and thoracic inlet. Persistent enlarged subcarinal lymph nodes, which have increased in size, an index node measuring 12 mm in the short axis (series 4 image 156). Evaluation of the kay is limited in the absence of intravenous contrast though several enlarged nodes are suspected greater on the right. Atherosclerosis of the aorta. Normal heart size. Coronary artery and aortic valve calcification. No pericardial effusion. Interval development of a moderate right pleural effusion, which is simple appearing. No left pleural effusion. Hepatic steatosis. On lung windows, interval development of extensive consolidation in the right upper lobe and superior segment of the right lower lobe. This is both peripheral and peribronchovascular in distribution. Few foci of calcification noted within this region in the right upper lobe. The diffuse nature of the abnormality suggests against the presence of an mass though a mass within this region is difficult to exclude. The pulmonary arteries are enlarged relative to their associated bronchi suggesting elevated pulmonary venous pressure. Redemonstration of the diffuse chronic lung disease with an upper lobe predominance including centrilobular and paraseptal emphysematous changes, subpleural reticulation, and patchy diffuse groundglass density. Airway thickening on the right. Central airways patent. Small tracheal diverticula noted. On bone windows, degenerative changes of the spine. IMPRESSION: 1. Redemonstration of advanced chronic lung disease, which could be compatible with pneumoconiosis with superimposed smoking related lung injury. Interval development of extensive consolidation in the right upper lobe and superior segment of the right lower lobe concerning for pneumonia. Less likely the appearance could relate to progressive massive fibrosis. An underlying mass is felt to also be less likely but is difficult to exclude. PET/CT may be helpful to differentiate. 2. Mediastinal and right greater than left hilar lymphadenopathy, slightly increased from prior. This could be reactive. 3. Interval development of a moderate right pleural effusion. 4. Hepatic steatosis. Electronically signed by: Koko Damon M.D. 08/06/2017 4:08 PM Dictated Date/Time: 08/06/2017 3:58 PM
== END | disposition home or self-care (01) ==
LOC: C.CTS 15:44
PROVIDERS: ATTEND Internal Medicine Critical Care Medicine
DX: J60 Coalworker's pneumoconiosis (principal); J44.9 Chronic obstructive pulmonary disease, unspecified; R07.89 Other chest pain; K21.9 Gastro-esophageal reflux disease without esophagitis; J84.9 Interstitial pulmonary disease, unspecified; I27.20 Pulmonary hypertension, unspecified; R91.1 Solitary pulmonary nodule; R06.81 Apnea, not elsewhere classified

== ENCOUNTER 2017-08-07 10:04 | Inpatient (IN) | payer OTHER ==
[~2017-08-07] VITALS: Ht 175.3 cm; Wt 98.7 kg
[2017-08-07] VITALS (18 sets, daily range): BP systolic 100–125; BP diastolic 58–77; PULSE 57–78; TEMP 36.7–36.8; O2SAT 91–95; Ht 175.3 cm; Wt 98.7 kg
[~2017-08-07 10:04] MED LIST changes: -ADVIN50/60 INH; -IPRASOL4 INH; -LSX20 PO; +METHYLPREDNISOLONE IV 40 MG in SYRINGE 0 ML IV SCH; -MULT-506 PO; -PREG1CAP70 PO; -UMEC1INH INH; -VNTHFA/IN INH
[2017-08-07] MEDS ORDERED: ALBUT/IPRATROP 3MG/0.5MG NEB 3 ML VIAL INH STA (10:22)
[2017-08-07] MEDS ORDERED: METHYLPREDNISOLONE 125 MG VIAL IV STA (10:22)
--- NOTE | 2017-08-07 10:52 | DIAGNOSTIC IMAGING REPORT ---
CHEST ONE VIEW PORTABLE CLINICAL HISTORY: SOB, hypoxia COMPARISON STUDY: 09/12/2012, CT scan dated 08/06/2017 FINDINGS: The cardiac and mediastinal contours remain stable. There is underlying pulmonary emphysema. Since the prior study, the patient has developed bilateral airspace opacities, most pronounced within the right upper lung zone. A subpulmonic right pleural effusion is suspected.[ IMPRESSION: 1. Emphysema and interval development of bilateral airspace opacities, most pronounced within the right upper lung zone 2. Subpulmonic right pleural effusion Electronically signed by: Keon Brown M.D. 08/07/2017 10:50 AM Dictated Date/Time: 08/07/2017 10:48 AM
[2017-08-07] MEDS ORDERED: LSX20 PO (11:04)
[2017-08-07] MEDS ORDERED: VNTHFA/IN INH (11:04)
[2017-08-07] MEDS ORDERED: ADVIN50/60 INH (11:04)
[2017-08-07] MEDS ORDERED: UMEC1INH INH (11:04)
[2017-08-07] MEDS ORDERED: PREG1CAP70 PO (11:04)
[2017-08-07 11:07] LABS: BASO % 0.3 %; BASO ABS # 0.03 K/uL (0-0.2); EOS % 1.9 %; HEMATOCRIT 44.9 % (42-52); HEMOGLOBIN 16.1 g/dL (14.0-18.0); IG# 0.01 K/uL (0.00-0.02); LYMPH ABS # 1.29 K/uL (1.2-3.4); MEAN CORPUSCULAR HEMOGLOBIN 31.2 pg (25-34); MEAN CORPUSCULAR HGB CONC 35.9 g/dl (32-36); MEAN PLATELET VOLUME 9.9 fL (7.4-10.4); MONO % 10.6 %; MONO ABS # 1.14 K/uL (0.11-0.59); NEUT % 75.1 %; NEUT ABS # 8.12 K/uL (1.4-6.5); PLATELET COUNT 281 K/uL (130-400); RED CELL DISTRIBUTION WIDTH CV 14.1 % (11.5-14.5); RED CELL DISTRIBUTION WIDTH SD 44.6 fL (36.4-46.3); WHITE BLOOD COUNT 10.79 K/uL (4.8-10.8)
[2017-08-07] MEDS ORDERED: MULT-506 PO (11:07)
[2017-08-07] MEDS ORDERED: IPRASOL4 INH (11:07)
[2017-08-07 11:16] LABS: INR 1.1 (0.9-1.1); PTT PATIENT 29.8 SECONDS (21.0-31.0)
[2017-08-07 11:37] LABS: BLOOD UREA NITROGEN 29 mg/dl (7-18); GLUCOSE 110 mg/dl (70-99)
[2017-08-07 11:38] LABS: ALBUMIN 3.2 gm/dl (3.4-5.0); CARBON DIOXIDE 24 mmol/L (21-32); CREATININE 1.61 mg/dl (0.60-1.40); POTASSIUM 3.3 mmol/L (3.5-5.1); SODIUM 132 mmol/L (136-145); TOTAL PROTEIN 7.8 gm/dl (6.4-8.2)
[2017-08-07 11:39] LABS: ALKALINE PHOSPHATASE 85 U/L (45-117); ALT/SGPT 17 U/L (12-78); AST/SGOT 29 U/L (15-37)
[2017-08-07] MEDS ORDERED: PIPERACILLIN/TAZOBACTAM 4.5 GM/100ML D5W IV STA (11:40)
[2017-08-07] MEDS ORDERED: VANCOMYCIN IV 2,500 MG in SODIUM CHLORIDE 0.9% 500ML 500 ML IV SCH (12:15)
[2017-08-07] MEDS ORDERED: VANCOMYCIN CONSULT ACTIVE PRN ×2 (12:15→14:30)
--- NOTE | 2017-08-07 12:57 | EMERGENCY ROOM VISIT NOTE ---
History Report prepared by Freddie: Vincenzo Vallecillo Under the Supervision of: Dr. Sunita Baker M.D. First contact with patient: 10:15 Chief Complaint: SHORTNESS OF BREATH Stated Complaint: DIFFICULTY WALKING AND BREATHING History of Present Illness The patient is a 66 year old male who presents to the Emergency Room with complaints of worsening shortness of breath beginning a few weeks ago. He received a chest CT yesterday the patient has not heard results of yet. They were scheduled to speak with her mail agent, Dr. Heller today. Per , the patient's breathing worsened over the past few days. She states that the patient's oxygen saturations have been in the 70's today. She notes that the patient was started on antibiotics 10 days ago. The patient also complains of a cough. His breathing is significantly worsened with exertion, and he is unable to walk short distances even with supplemental oxygen. He was diagnosed with black lung, and a lung nodule last month. The patient is on 2 L of supplemental oxygen at all times, which he changes to 5 L when walking. He had a recent heart catheterization, patient's states he was told he has a "mild heart failure" and was started on Lasix daily. Source of History: patient, spouse/significant other () Onset: A few weeks ago Symptom Intensity: oxygen saturations in the 70's Quality: other (shortness of breath) Timing: worsening Modifying Factors (Worsening): exertion Associated Symptoms: + cough Review of Systems See HPI for pertinent positives & negatives. A total of 10 systems reviewed and were otherwise negative. Past Medical & Surgical Medical Problems: (1) Acute respiratory failure with hypoxia (2) Black lung (3) HTN (hypertension) (4) Lung nodule (5) Troponin I above reference range Family History No pertinent family history stated. Social History Smoking Status: Former Smoker Alcohol Use: occasionally Drug Use: none Marital Status: Housing Status: lives with family Occupation Status: employed Current/Historical Medications Scheduled Albuterol Hfa (Ventolin Hfa), 2 PUFFS INH Q4H Aspirin (Aspirin Chewable), 81 MG PO HS Esomeprazole Magnesium (Nexium), 40 MG PO QAM Fluticasone Prop/Salmeterol (Advair Diskus 500/50 60 Dose), 1 PUFF INH BID Furosemide (Furosemide), 20 MG PO DAILY Ipratropium-Albuterol (Duoneb), 3 ML INH Q4H Multivitamin (Multivitamin), 1 TAB PO DAILY Pregabalin (Lyrica), 150 MG PO DAILY Simvastatin (Zocor), 10 MG PO HS Umeclidinium [place] (Incruse Ellipta), 1 PUFF INH DAILY Valsartan/Hctz (Diovan Hct 320MG/25MG), 1 TAB PO QAM Allergies Coded Allergies: No Known Allergies (Verified , 08/07/17) Physical Exam Vital Signs Date Time Temp Pulse Resp B/P (MAP) Pulse Ox O2 Delivery O2 Flow Rate FiO2 08/07/17 14:00 91 Non-Rebreather 10.0 08/07/17 13:59 80 22 117/68 91 Non-Rebreather 10.0 08/07/17 13:50 80 08/07/17 12:59 78 22 103/62 92 Non-Rebreather 10.0 08/07/17 12:07 80 22 110/75 92 Room Air 08/07/17 11:11 79 24 119/76 91 Non-Rebreather 10.0 08/07/17 10:23 79 Nasal Cannula 4.0 08/07/17 10:23 86 08/07/17 10:20 97 Non-Rebreather 10.0 08/07/17 10:20 81 18 142/78 95 Non-Rebreather 10.0 08/07/17 10:08 36.8 85 20 115/72 78 Nasal Cannula 5.0 Physical Exam Vital signs reviewed. General: Chronically ill-appearing male, sitting up at the bedside, tolerating oxygenation by nonrebreather. HEENT: No scleral icterus, PERRLA, neck supple. Atraumatic. Cardiovascular: Regular rate and rhythm, no extra sounds. Pulmonary: Coarse breath sounds bilaterally. Hypoxic on home O2. On Non- breather. Abdomen: Soft, nontender, nondistended, positive bowel sounds. Musculoskeletal: Atraumatic, no peripheral edema. Neurologic: Patient awake alert and oriented x 3, answering questions appropriately, no focal deficit identified. Skin: Warm, dry, no rash Medical Decision & Procedures ER Provider Diagnostic Interpretation: Radiology results as stated below per my review and radiologist interpretation: CHEST ONE VIEW PORTABLE COMPARISON STUDY: 09/12/2012, CT scan dated 08/06/2017 FINDINGS: The cardiac and mediastinal contours remain stable. There is underlying pulmonary emphysema. Since the prior study, the patient has developed bilateral airspace opacities, most pronounced within the right upper lung zone. A subpulmonic right pleural effusion is suspected.[ IMPRESSION: 1. Emphysema and interval development of bilateral airspace opacities, most pronounced within the right upper lung zone 2. Subpulmonic right pleural effusion Electronically signed by: Keon Brown M.D. 08/07/2017 10:50 AM Laboratory Results Test 08/07/17 00:00 08/07/17 10:35 08/07/17 10:43 08/07/17 10:45 Urine Random Creatinine 44.7 mg/dl Urine Random Urea Nitrogen 420 mg/dl Prothrombin Time 11.4 SECONDS (9.0-12.0) Prothromb Time International Ratio 1.1 (0.9-1.1) Total Bilirubin 1.1 mg/dl (0.2-1) Direct Bilirubin 0.3 mg/dl (0-0.2) Aspartate Amino Transf (AST/SGOT) 29 U/L (15-37) Alanine Aminotransferase (ALT/SGPT) 17 U/L (12-78) Alkaline Phosphatase 85 U/L (45-117) Total Protein 7.8 gm/dl (6.4-8.2) Albumin 3.2 gm/dl (3.4-5.0) Bedside Lactic Acid Venous 1.35 mmol/L (0.90-1.70) Urine Color YELLOW Urine Appearance CLEAR (CLEAR) Urine pH 5.0 (4.5-7.5) Urine Specific [place] 1.014 (1.000-1.030) Urine Protein NEG (NEG) Urine Glucose (UA) NEG (NEG) Urine Ketones NEG (NEG) Urine Occult Blood NEG (NEG) Urine Nitrite NEG (NEG) Urine Bilirubin NEG (NEG) Urine Urobilinogen NEG (NEG) Urine Leukocyte Esterase NEG (NEG) Test 08/07/17 11:13 Arterial Blood pH 7.49 (7.35-7.45) Arterial Blood Partial Pressure CO2 32 mmHg (35-46) Arterial Blood Partial Pressure O2 63 mm/Hg (80-95) Arterial Blood HCO3 24 mmol/L (19-24) Arterial Blood Oxygen Saturation 91.8 % (90-95) Arterial Blood Base Excess 1.3 mEq/L (-9-1.8) Arterial Blood Gas Delivery 10 L [place]lo Test POS (POS) Laboratory results per my review. Medications Administered Medications (Trade) Dose Ordered Sig/Gail Route Start Time Stop Time Status Last Admin Dose Admin Albuterol/ Ipratropium (Duoneb) 3 ml NOW STAT INH 08/07/17 10:22 08/07/17 10:25 DC 08/07/17 10:30 3 ML Methylprednisolone Sodium Succinate (Solu-Medrol IV) 125 mg NOW STAT IV 08/07/17 10:22 08/07/17 10:25 DC 08/07/17 10:41 125 MG Piperacillin Sod/ Tazobactam Sod (Zosyn Iv) 4.5 gm NOW STAT IV 08/07/17 11:40 08/07/17 11:41 DC 08/07/17 11:48 4.5 GM ECG Per My Interpretation Indication: SOB/dyspnea Rate (beats per minute): 83 Rhythm: normal sinus Findings: other (diffuse T-wave abnormality. No ST elevations. ) ED Course 1017: Past medical records reviewed. The patient was evaluated in room C4. A complete history and physical examination was performed. 1022: Ordered Solu-Medrol 125 mg IV, DuoNeb 3 mL INH. 1140: Ordered Zosyn 4.5 gm IV. 1215: Ordered Vancomycin HCl 2500 mg/Sodium Chloride 550 ml @ 200 mls/hr IV. 1222: Upon reevaluation, the patient is resting comfortably. I discussed laboratory and radiographic results with him. He verbalized agreement of the treatment plan. The patient will be evaluated for further management and care. Medical Decision Differential diagnosis: Etiologies such as exacerbation of chronic lung disease, infections, reactive airway disease, pneumonia, pneumothorax, COPD, CHF, cardiac ischemia, pulmonary embolism, musculoskeletal, gastrointestinal, as well as others were entertained. This patient was evaluated and was sitting upright at the bedside. Patient was on nonrebreather oxygenation with borderline oxygen saturations. He was given DuoNeb treatment and IV Solu-Medrol. Laboratory work including cultures was obtained. Patient was started on IV Zosyn. Consultation with Dr. Heller was placed. He has recommended IV vancomycin. Review of the patient's recent CAT scan reveals significant changes from previous. Patient has a large right pleural effusion and consolidation/to the right greater than left lung mcwilliams. The patient's ABG reveals hypoxemia. The hospitalist service has been consulted for admission and further management. Medication Reconcilliation Current Medication List: was personally reviewed by me Blood Pressure Screening Patient's blood pressure: Normal blood pressure Blood pressure disposition: Did not require urgent referral Consults Time Called: 1155 Consulting Physician: Dr. Heller - Pulmonology Returned Call: 1202 I reviewed the patient's case with Dr. Heller. He states that the patient's lung disease has progressed significantly with unclear etiology. He believes the patient's black lung has progressed, but underlying infection is not ruled out. He requested Vancomycin. Additional Consults: Time Called: 1215 Consulted Physician: Dr. Acuña - [facility] Hospitalist Returned Call: 1225 Additional Comments: Dr. Acuña was made aware of the patient's case. [facility] the patient for further management. Impression Primary Impression: Acute respiratory failure with hypoxia Additional Impressions: Pleural effusion, right Pneumoconiosis Pneumonia Critical Care I have personally spent greater than 30 minutes of critical care time in the direct management of this patient. This includes bedside care, interpretation of diagnostic studies, and testing, discussion with consultants, patient, and family members, and other required patient management activities. This 30 minutes is in excess of all separately billable procedures. Scribe Attestation The scribe's documentation has been prepared under my direction and personally reviewed by me in its entirety. I confirm that the note above accurately reflects all work, treatment, procedures, and medical decision making performed by me. Departure Information Dispostion Being Evaluated By Hospitalist Referrals Neena Joya DO (PCP) Patient Instructions My [facility] Problem Qualifiers
[2017-08-07] MEDS ORDERED: MoRPHine SULFATE 4 MG/ML 1 ML CARP\\VIAL IV PRN (14:15)
[2017-08-07] MEDS ORDERED: ICU PROTOCOL FOR HYPERGLYCEMIA PRN (14:15)
[2017-08-07] MEDS ORDERED: ALUMINUM/MAGNESIUM/SIMETH (MAALOX MAX) 30 ML UDC PO PRN (14:15)
[2017-08-07] MEDS ORDERED: ONDANSETRON INJ 2 MG/ML 2 ML VIAL IV PRN (14:15)
[2017-08-07] MEDS ORDERED: ACETAMINOPHEN 325 MG TAB PO PRN (14:15)
[2017-08-07] MEDS ORDERED: MAGNESIUM HYDROXIDE SUSP 30 ML UDC PO PRN (14:15)
[2017-08-07] MEDS ORDERED: LORAZEPAM 2 MG/ML 1 ML VIAL IV PRN (14:15)
[2017-08-07] MEDS ORDERED: PIPERACILL/TAZOBAC CONSULT ACTIVE PRN (14:30)
[2017-08-07] MEDS ORDERED: HEPARIN SOD 5000 UNIT/0.5 ML CARP ONE (14:51)
[2017-08-07] MEDS ORDERED: HEPARIN 25000 UNIT/500 ML D5W ONE (14:51)
[2017-08-07] MEDS: ALBUT/IPRATROP 3MG/0.5MG NEB 3 ML VIAL INH SCH ×2 (15:00→20:45)
[2017-08-07] MEDS ORDERED: HEPARIN 25,000 UNIT/500ML D5W 500 ML IV SCH (15:30)
--- NOTE | 2017-08-07 15:40 | History and Physical ---
History & Physical Date & Time of Service: August 07, 2017 at 14:43 Chief Complaint: Difficulty Walking And Breathing Primary Care Physician: Neena Joya DO History of Present Illness Source: patient, spouse, hospital records, other 66 y/o M Hx ILD, 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 he pt states that he has been progressively SOB over the past 4 weeks. He denies a fever or an acute, productive cough. He denies any CP. His oxygen demand have steadily increased and he cannot take more than a few steps without becoming excessively SOB. He underwent a CT chest the prior day which revealed consolidations in the right upper lobe and superior segment of the right lower lobe concerning for pneumonia, although progressive massive fibrosis and an underlying mass could not be excluded as alternative diagnoses. His SOB acutely worsened this AM and his states she was unable to keep his oxygen saturation above the 70s and presented to the hospital therefore. He is requiring 10L 02 at the time of admission. Initial labs are notable for an elevated troponin and mild CARINE. An ABG shows hypoxia and alkalosis. A CXR mentions a R pleural effusion, however, this may be a consolidation if compared to the CT one day earlier. 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 and COPD - 2L 02 at rest, 5L with activity 2) HTN 3) HPL 4) HENNA - CPAP 5) GERD 6) Pulmonary HTN 7) Grade I diastolic dysfunction - EF 55% 8) MCA CVA 2011 9) Carotid stenosis - R CEA 2012 Social History Smoking Status: Former Smoker Drug Use: none Marital Status: Housing status: lives with significant other Occupational Status: employed Immunizations History of Influenza Vaccine: N/A Influenza Vaccine Date: Feb 08, 2012 History of Tetanus Vaccine?: No History of Pneumococcal: Unknown History of Hepatitis B Vaccine: No Allergies Coded Allergies: No Known Allergies (Verified , 08/07/17) Home Medications Scheduled Albuterol Hfa (Ventolin Hfa), 2 PUFFS INH Q4H Aspirin (Aspirin Chewable), 81 MG PO HS Esomeprazole Magnesium (Nexium), 40 MG PO QAM Fluticasone Prop/Salmeterol (Advair Diskus 500/50 60 Dose), 1 PUFF INH BID Furosemide (Furosemide), 20 MG PO DAILY Ipratropium-Albuterol (Duoneb), 3 ML INH Q4H Multivitamin (Multivitamin), 1 TAB PO DAILY Pregabalin (Lyrica), 150 MG PO DAILY Simvastatin (Zocor), 10 MG PO HS Umeclidinium [place] (Incruse Ellipta), 1 PUFF INH DAILY Valsartan/Hctz (Diovan Hct 320MG/25MG), 1 TAB PO QAM Review of Systems Constitutional: + weakness, No fever, No chills, No sweats Eyes: No worsening of vision ENT: No hearing loss, No unusual epistaxis, No nasal symptoms Respiratory: + cough, + sputum, + shortness of breath, + dyspnea on exertion, + dyspnea at rest Cardiovascular: No chest pain, No orthopnea, No PND Abdomen: No pain, No nausea Genitourinary - Male: No hematuria, No dysuria Neurologic: + weakness, No memory loss, No paralysis Psychiatric: No depression symptoms Endocrine: + fatigue Hematologic / Lymphatic: No abnormal bleeding/bruising Integumentary: No rash Allergic / Immunologic: No environmental allergies Physical Exam Vital Signs Date Time Temp Pulse Resp B/P (MAP) Pulse Ox O2 Delivery O2 Flow Rate FiO2 08/07/17 14:00 91 Non-Rebreather 10.0 08/07/17 13:59 80 22 117/68 91 Non-Rebreather 10.0 08/07/17 13:50 80 08/07/17 12:59 78 22 103/62 92 Non-Rebreather 10.0 08/07/17 12:07 80 22 110/75 92 Room Air 08/07/17 11:11 79 24 119/76 91 Non-Rebreather 10.0 08/07/17 10:23 79 Nasal Cannula 4.0 08/07/17 10:23 86 08/07/17 10:20 97 Non-Rebreather 10.0 08/07/17 10:20 81 18 142/78 95 Non-Rebreather 10.0 08/07/17 10:08 36.8 85 20 115/72 78 Nasal Cannula 5.0 General Appearance: + pertinent finding (Pleasant, middle-aged male - ) Head: normocephalic Eyes: normal inspection ENT: normal ENT inspection, pharynx normal Neck: supple, no JVD, + pertinent finding (CEA scar R ) Respiratory/Chest: chest non-tender, + pertinent finding (Poor air movement , crackles B) Cardiovascular: regular rate, rhythm, no edema, no gallop Abdomen/GI: normal bowel sounds, non tender Genitourinary - Male: normal male genitalia Back: normal inspection, no CVA tenderness Extremities/Musculoskelatal: normal inspection, no calf tenderness, normal capillary refill, normal range of motion 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: 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 as tested, no motor/sensory deficits, oriented x 3 Skin: normal color Diagnostics Laboratory Results Results Past 24 Hours Test 08/07/17 10:35 08/07/17 10:43 08/07/17 10:45 08/07/17 11:13 Range/Units White Blood Count 10.79 4.8-10.8 K/uL Red Blood Count 5.16 4.7-6.1 M/uL Hemoglobin 16.1 14.0-18.0 g/dL Hematocrit 44.9 42-52 % Mean Corpuscular Volume 87.0 80-100 fL Mean Corpuscular Hemoglobin 31.2 25-34 pg Mean Corpuscular Hemoglobin Concent 35.9 32-36 g/dl Platelet Count 281 130-400 K/uL Mean Platelet Volume 9.9 7.4-10.4 fL Neutrophils (%) (Auto) 75.1 % Lymphocytes (%) (Auto) 12.0 % Monocytes (%) (Auto) 10.6 % Eosinophils (%) (Auto) 1.9 % Basophils (%) (Auto) 0.3 % Neutrophils # (Auto) 8.12 1.4-6.5 K/uL Lymphocytes # (Auto) 1.29 1.2-3.4 K/uL Monocytes # (Auto) 1.14 0.11-0.59 K/uL Eosinophils # (Auto) 0.20 0-0.5 K/uL Basophils # (Auto) 0.03 0-0.2 K/uL RDW Standard Deviation 44.6 36.4-46.3 fL RDW Coefficient of Variation 14.1 11.5-14.5 % Immature Granulocyte % (Auto) 0.1 % Immature Granulocyte # (Auto) 0.01 0.00-0.02 K/uL Prothrombin Time 11.4 9.0-12.0 SECONDS Prothromb Time International Ratio 1.1 0.9-1.1 Activated Partial Thromboplast Time 29.8 21.0-31.0 SECONDS Partial Thromboplastin Ratio 1.1 Sodium Level 132 136-145 mmol/L Potassium Level 3.3 3.5-5.1 mmol/L Chloride Level 98 98-107 mmol/L Carbon Dioxide Level 24 21-32 mmol/L Anion Gap 10.0 3-11 mmol/L Blood Urea Nitrogen 29 7-18 mg/dl Creatinine 1.61 0.60-1.40 mg/dl Estimated GFR () 50.5 Estimated GFR (Non- 43.6 BUN/Creatinine Ratio 18.0 10-20 Random Glucose 110 70-99 mg/dl Calcium Level 9.0 8.5-10.1 mg/dl Magnesium Level 1.9 1.8-2.4 mg/dl Total Bilirubin 1.1 0.2-1 mg/dl Direct Bilirubin 0.3 0-0.2 mg/dl Aspartate Amino Transf (AST/SGOT) 29 15-37 U/L Alanine Aminotransferase (ALT/SGPT) 17 12-78 U/L Alkaline Phosphatase 85 45-117 U/L Troponin I 0.812 0-0.045 ng/ml Total Protein 7.8 6.4-8.2 gm/dl Albumin 3.2 3.4-5.0 gm/dl Bedside Lactic Acid Venous 1.35 0.90-1.70 mmol/L Urine Color YELLOW Urine Appearance CLEAR CLEAR Urine pH 5.0 4.5-7.5 Urine Specific [place] 1.014 1.000-1.030 Urine Protein NEG NEG Urine Glucose (UA) NEG NEG Urine Ketones NEG NEG Urine Occult Blood NEG NEG Urine Nitrite NEG NEG Urine Bilirubin NEG NEG Urine Urobilinogen NEG NEG Urine Leukocyte Esterase NEG NEG Arterial Blood pH 7.49 7.35-7.45 Arterial Blood Partial Pressure CO2 32 35-46 mmHg Arterial Blood Partial Pressure O2 63 80-95 mm/Hg Arterial Blood HCO3 24 19-24 mmol/L Arterial Blood Oxygen Saturation 91.8 90-95 % Arterial Blood Base Excess 1.3 -9-1.8 mEq/L Arterial Blood Gas Delivery 10 L [place]lo Test POS POS Microbiology Results 08/07/17 Blood Culture, Received Pending 08/07/17 Blood Culture, Received Pending Diagnostic Radiology CT chest 08/06 1. Redemonstration of advanced chronic lung disease, which could be compatible with pneumoconiosis with superimposed smoking related lung injury. Interval development of extensive consolidation in the right upper lobe and superior segment of the right lower lobe concerning for pneumonia. Less likely the appearance could relate to progressive massive fibrosis. An underlying mass is felt to also be less likely but is difficult to exclude. 2. Mediastinal and right greater than left hilar lymphadenopathy, slightly increased from prior. This could be reactive. 3. Interval development of a moderate right pleural effusion. 4. Hepatic steatosis. CXR 08/07 IMPRESSION: 1. Emphysema and interval development of bilateral airspace opacities, most pronounced within the right upper lung zone 2. Subpulmonic right pleural effusion Impression Assessment and Plan 66 y/o M Hx ILD, 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 he pt states that he has been progressively SOB over the past 4 weeks. His oxygen demand has steadily increased and he cannot take more than a few steps without becoming excessively SOB. He underwent a CT chest the prior day which revealed consolidations in the right upper lobe and superior segment of the right lower lobe concerning for pneumonia, although progressive massive fibrosis and an underlying mass could not be excluded as alternative diagnoses. His SOB acutely worsened this AM and his states she was unable to keep his oxygen saturation above the 70s and presented to the hospital therefore. He is requiring 10L 02 at the time of admission. Initial labs are notable for an elevated troponin and mild CARINE. An ABG shows hypoxia and alkalosis. A CXR mentions a R pleural effusion, however, this may be a consolidation if compared to the CT one day earlier. 1) Respiratory failure - ILD, PNM - Infectious etiology is preferable, although clinically a diagnosis of pneumonia cannot be confirmed. The CT describes fibrosis and a mass as alternative etiologies so that the pt may benefit from a bronchoscopy. At present, we have started him on Zosyn, Vanc, Zithro. We will additionally treat for CODP/ILD exacerbation with steroids and nebulizers. A PE would also figure into the differential consider the trop elevation, however , the pt's renal function is acutely impaired. We are providing IVF and will consider a CTA following a repeat BMP at 8p. He has been fully anticoagulated regardless due to an elevated trop. Due to his high 02 demands, we will assign the pt to the ICU. 2) Elevated troponin - we expect this is due to hypoxia/demand rather than CAD. He does have risk factors however. We will trend troponin and order a limited echo. He is fully anticoagulated, receives ASA and we will increase his Statin dose 3) CARINE - difficult to assess volume status due to habitus. We are providing IVF and pending a repeat BMP 4) Diastolic dysfunction - we are currently holding Lasix and HCTZ due to CARINE - volume status bears monitoring 5) HTN - Valsartan/HCTZ, Lasix held due to RF - will provide PRN Hydralazine 6) HENNA - will supply CPAP as needed 7) HPL - statin dose increased Full code - full-dose heparin Total time for this admit including review of labs, meds, imaging, records - discussion with ER attending, mophead trimmer and wrapper, pt and - inc critical care time - 50 min Advanced Directives Existing Living Will: No Existing Power of Photoengraving Apprentice: No Resuscitation Status VTE Prophylaxis Will order VTE Prophylaxis: Yes
[2017-08-07] MEDS ORDERED: POTASSIUM CHLORIDE 20 MEQ TABCR PO STA (15:44)
[2017-08-07] MEDS ORDERED: VANCOMYCIN IV 2,250 MG in SODIUM CHLORIDE 0.9% 500ML 500 ML IV ONE (16:00)
[2017-08-07] MEDS ORDERED: LORAZEPAM INJ 0.5 MG in SYRINGE 0.75 ML IV PRN (16:00)
[2017-08-07] MEDS ORDERED: D5NSS + 20MEQ KCL 1,000 ML IV SCH (16:15)
--- NOTE | 2017-08-07 16:19 | Pharmacy Progress Note ---
Pharmacy Abx Initial Consult Date of Service August 07, 2017. Pharmacy Dosing Scope Date of Consult: 08/07/17 Consultation requested by: Dr. Acuña Pharmacy is consulted to initiate vancomycin and Zosyn dosing therapy, order appropriate labs and adjust drug dose/frequency. Subjective The patient is a 66 year old male admitted on August 07, 2017 at 14:27. Objective Height (Feet): 5 Height (Inches): 9.00 Weight (Kilograms): 88.500 Vital Signs (Past 12Hrs) Vital Signs Past 12 Hours Date Time Temp Pulse Resp B/P (MAP) Pulse Ox O2 Delivery O2 Flow Rate FiO2 08/07/17 15:02 78 22 113/66 94 Non-Rebreather 10.0 08/07/17 14:00 91 Non-Rebreather 10.0 08/07/17 13:59 80 22 117/68 91 Non-Rebreather 10.0 08/07/17 13:50 80 08/07/17 12:59 78 22 103/62 92 Non-Rebreather 10.0 08/07/17 12:07 80 22 110/75 92 Room Air 08/07/17 11:11 79 24 119/76 91 Non-Rebreather 10.0 08/07/17 10:23 79 Nasal Cannula 4.0 08/07/17 10:23 86 08/07/17 10:20 97 Non-Rebreather 10.0 08/07/17 10:20 81 18 142/78 95 Non-Rebreather 10.0 08/07/17 10:08 36.8 85 20 115/72 78 Nasal Cannula 5.0 Lab Results (24Hrs) Laboratory Tests (24 Hours) Test 08/07/17 10:35 White Blood Count 10.79 K/uL (4.8-10.8) Red Blood Count 5.16 M/uL (4.7-6.1) Hemoglobin 16.1 g/dL (14.0-18.0) Hematocrit 44.9 % (42-52) Mean Corpuscular Volume 87.0 fL (80-100) Mean Corpuscular Hemoglobin 31.2 pg (25-34) Mean Corpuscular Hemoglobin Concent 35.9 g/dl (32-36) Platelet Count 281 K/uL (130-400) Mean Platelet Volume 9.9 fL (7.4-10.4) Neutrophils (%) (Auto) 75.1 % Lymphocytes (%) (Auto) 12.0 % Monocytes (%) (Auto) 10.6 % Eosinophils (%) (Auto) 1.9 % Basophils (%) (Auto) 0.3 % Neutrophils # (Auto) 8.12 K/uL (1.4-6.5) H Lymphocytes # (Auto) 1.29 K/uL (1.2-3.4) Monocytes # (Auto) 1.14 K/uL (0.11-0.59) H Eosinophils # (Auto) 0.20 K/uL (0-0.5) Basophils # (Auto) 0.03 K/uL (0-0.2) Micro Results Date/Time Source Procedure Growth Status 08/07/17 11:21 Blood Blood Culture Pending Received 08/07/17 10:35 Blood Blood Culture Pending Received 08/07/17 16:10 Nasal MRSA DNA Surveillance Screen Pending Lisa Batch Assessment & Plan Assessment 66 year old male admitted with history of ILD and COPD, admitted with progressively worsening SOB over the past [address] of the chest revealed consolidations, so patient is being initiated on broad spectrum antibiotics in the form of vancomycin, Zosyn and Zithromax. Plan Vancomycin IV * Est PK parameters using est CrCL 50: Vd 0.7 L/kg, Guilherme 0.046 hr-1, t1/2 15 hrs * Loading dose: 2250 mg (25 mg/kg) * Maintenance dose: 1250 mg IV (14.1 mg/kg) every 16 hours <-dosing just above t1/2 with expectation that renal function improves to baseline ~1.3 * Goal trough level for : 15 to 20 mcg/mL * Trough level ordered for 08/09/17 prior to the 4th overall dose * MRSA nasal swab has already been ordered to evaluate if vancomycin therapy will need continued * May consider checking a procalcitonin as well Piperacillin/tazobactam * 4.5 g bolus administered over 30 minutes, then 4.5 g IV extended infusion every 8 hours for CrCl greater than 20 mL/min * Aggressive dosing selected due to critically ill status/BMI 35 or more/ history of cystic fibrosis. Zithromax * Not dosed by pharmacy but is appropriate Pharmacy will continue to follow and will adjust dose/frequency as necessary. Thank you.
[2017-08-07] MEDS ORDERED: METHYLPREDNISOLONE IV 60 MG in SYRINGE 0 ML IV SCH (16:30)
[2017-08-07] MEDS: PIPERACILL/TAZOBAC IV 4.5 GM in DEXTROSE 5% 100ML 100 ML IV SCH (16:32)
[2017-08-07] MEDS ORDERED: FENTANYL CITRATE INJ 50 MCG/1 ML 2 ML VIAL ONE (16:42)
[2017-08-07] MEDS ORDERED: AZITHROMYCIN IV 500 MG in DEXTROSE 5% 250ML 250 ML IV SCH (17:00)
--- NOTE | 2017-08-07 17:32 | Critical Care Consultation ---
Critical Care Consultation Date of Consultation: August 07, 2017. Attending Physician: Gurpreet Acuña M.D. Reason for Consultation: Acute on chronic hypoxic respiratory failure History of Present Illness Patient is a 66-year-old male who has progressive exertional dyspnea. Patient' s reports that he started noninvasive positive pressure therapy for obstructive sleep apnea at night and has noticed significant decline since about March when he started sleep apnea therapy. Patient underwent recent chest CT scan as well as PET scan secondary to discovery of a lung nodule. The patient also has recently started oxygen therapy, he is currently wearing 6 L and feels that his dyspnea is getting worse. He denies fevers or chills. Past Medical/Surgical History Pneumoconiosis Carotid artery stenosis status post carotid endarterectomy Central sleep apnea COPD Complex sleep apnea syndrome Diverticulosis History of GERD Hypertension Interstitial lung disease Coronary artery disease status post stent placement Social History Smoking Status: Former Smoker Drug Use: none Marital Status: Occupation Status: employed Allergies Coded Allergies: No Known Allergies (Verified , 08/07/17) Home Medications Scheduled Albuterol Hfa (Ventolin Hfa), 2 PUFFS INH Q4H Aspirin (Aspirin Chewable), 81 MG PO HS Esomeprazole Magnesium (Nexium), 40 MG PO QAM Fluticasone Prop/Salmeterol (Advair Diskus 500/50 60 Dose), 1 PUFF INH BID Furosemide (Furosemide), 20 MG PO DAILY Ipratropium-Albuterol (Duoneb), 3 ML INH Q4H Multivitamin (Multivitamin), 1 TAB PO DAILY Pregabalin (Lyrica), 150 MG PO DAILY Simvastatin (Zocor), 10 MG PO HS Umeclidinium Dutton (Incruse Ellipta), 1 PUFF INH DAILY Valsartan/Hctz (Diovan Hct 320MG/25MG), 1 TAB PO QAM Current Inpatient Medications Current Inpatient Medications Medications (Trade) Dose Ordered Sig/Gail Route Start Time Stop Time Status Last Admin Dose Admin Aspirin (Ecotrin Tab) 81 mg HS PO 08/07/17 21:00 09/06/17 20:59 Pregabalin (Lyrica Cap) 150 mg DAILY PO 08/08/17 09:00 09/07/17 08:59 Pantoprazole Sodium (Protonix Tab) 40 mg QAM PO 08/08/17 09:00 09/07/17 08:59 Acetaminophen (Tylenol Tab) 650 mg Q4H PRN PO 08/07/17 14:15 09/06/17 14:14 Lorazepam (Ativan Inj) 0.5 mg Q4H PRN IV 08/07/17 14:15 09/06/17 14:14 Al Hydrox/Mg Hydrox/Simethicone (Maalox Max Susp) 15 ml Q4H PRN PO 08/07/17 14:15 09/06/17 14:14 Magnesium Hydroxide (Milk Of Magnesia Susp) 30 ml Q12H PRN PO 08/07/17 14:15 09/06/17 14:14 Ondansetron HCl (Zofran Inj) 4 mg Q6H PRN IV 08/07/17 14:15 09/06/17 14:14 Morphine Sulfate (MoRPHine SULFATE INJ) 2 mg Q2H PRN IV 08/07/17 14:15 08/21/17 14:14 Miscellaneous Information (Icu Protocol For Hyperglycemia) 1 ea PRN PRN N/A 08/07/17 14:15 08/09/17 14:14 Potassium Chloride/Dextrose/ Sod Cl 1,000 ml @ 100 mls/hr Q10H IV 08/07/17 16:15 08/08/17 02:14 Piperacillin Sod/ Tazobactam Sod 4.5 gm/Dextrose 120 ml @ 30 mls/hr Q8H IV 08/07/17 16:00 08/14/17 15:59 Miscellaneous Information (Consult) 1 ea UD PRN N/A 08/07/17 14:30 09/06/17 14:29 Vancomycin HCl 2250 mg/Sodium Chloride 545 ml @ 200 mls/hr ONE ONCE IV 08/07/17 16:00 08/07/17 18:43 Miscellaneous Information (Consult) 1 ea UD PRN N/A 08/07/17 14:30 09/06/17 14:29 Methylprednisolone Sodium Succinate 60 mg/Syringe 0.96 ml @ 1.5 mls/min Q6H IV 08/07/17 16:30 09/06/17 16:29 Albuterol/ Ipratropium (Duoneb) 3 ml Q6R INH 08/07/17 15:00 09/06/17 14:59 Albuterol Sulfate (Ventolin 0.083% 2.5MG/3ML Neb) 2.5 mg Q4R PRN INH 08/07/17 14:45 09/06/17 14:44 Heparin Sodium/ Dextrose 500 ml @ 28 mls/hr [id number] IV 08/07/17 15:30 09/06/17 15:29 Atorvastatin Calcium (Lipitor Tab) 40 mg QAM PO 08/08/17 09:00 09/07/17 08:59 Potassium Chloride (Klor-Con Tab) 20 meq QAM PO 08/08/17 09:00 09/07/17 08:59 Lorazepam 0.5 mg/ Syringe 1 ml @ 1 mls/min Q4H PRN IV 08/07/17 16:00 09/06/17 15:59 Vancomycin HCl 1250 mg/Sodium Chloride 275 ml @ 125 mls/hr Q16H IV 08/08/17 08:00 08/14/17 23:59 Review of Systems A 10 point review of systems has been obtained and is otherwise negative. Respiratory: + shortness of breath, + dyspnea on exertion, + dyspnea at rest, No sputum Cardiovascular: + orthopnea, No chest pain, No palpitations Physical Exam Date Time Temp Pulse Resp B/P (MAP) Pulse Ox O2 Delivery O2 Flow Rate FiO2 08/07/17 15:02 78 22 113/66 94 Non-Rebreather 10.0 08/07/17 14:00 91 Non-Rebreather 10.0 08/07/17 13:59 80 22 117/68 91 Non-Rebreather 10.0 08/07/17 13:50 80 08/07/17 12:59 78 22 103/62 92 Non-Rebreather 10.0 08/07/17 12:07 80 22 110/75 92 Room Air 08/07/17 11:11 79 24 119/76 91 Non-Rebreather 10.0 08/07/17 10:23 79 Nasal Cannula 4.0 08/07/17 10:23 86 08/07/17 10:20 97 Non-Rebreather 10.0 08/07/17 10:20 81 18 142/78 95 Non-Rebreather 10.0 08/07/17 10:08 36.8 85 20 115/72 78 Nasal Cannula 5.0 General: Alert. nontoxic. Skin: Warm, dry, Head: Atraumatic Ears, nose, mouth and throat: airway patent Cardiovascular: Normal peripheral perfusion, tachycardia Respiratory: Significant tachypnea Gastrointestinal: Non distended Musculoskeletal: No deformity Laboratory Results Last 24 Hours Test 08/07/17 10:35 08/07/17 10:43 08/07/17 10:45 08/07/17 11:13 White Blood Count 10.79 K/uL Red Blood Count 5.16 M/uL Hemoglobin 16.1 g/dL Hematocrit 44.9 % Mean Corpuscular Volume 87.0 fL Mean Corpuscular Hemoglobin 31.2 pg Mean Corpuscular Hemoglobin Concent 35.9 g/dl Platelet Count 281 K/uL Mean Platelet Volume 9.9 fL Neutrophils (%) (Auto) 75.1 % Lymphocytes (%) (Auto) 12.0 % Monocytes (%) (Auto) 10.6 % Eosinophils (%) (Auto) 1.9 % Basophils (%) (Auto) 0.3 % Neutrophils # (Auto) 8.12 K/uL Lymphocytes # (Auto) 1.29 K/uL Monocytes # (Auto) 1.14 K/uL Eosinophils # (Auto) 0.20 K/uL Basophils # (Auto) 0.03 K/uL RDW Standard Deviation 44.6 fL RDW Coefficient of Variation 14.1 % Immature Granulocyte % (Auto) 0.1 % Immature Granulocyte # (Auto) 0.01 K/uL Prothrombin Time 11.4 SECONDS Prothromb Time International Ratio 1.1 Activated Partial Thromboplast Time 29.8 SECONDS Partial Thromboplastin Ratio 1.1 Sodium Level 132 mmol/L Potassium Level 3.3 mmol/L Chloride Level 98 mmol/L Carbon Dioxide Level 24 mmol/L Anion Gap 10.0 mmol/L Blood Urea Nitrogen 29 mg/dl Creatinine 1.61 mg/dl Estimated GFR () 50.5 Estimated GFR (Non- 43.6 BUN/Creatinine Ratio 18.0 Random Glucose 110 mg/dl Calcium Level 9.0 mg/dl Magnesium Level 1.9 mg/dl Total Bilirubin 1.1 mg/dl Direct Bilirubin 0.3 mg/dl Aspartate Amino Transf (AST/SGOT) 29 U/L Alanine Aminotransferase (ALT/SGPT) 17 U/L Alkaline Phosphatase 85 U/L Troponin I 0.812 ng/ml Total Protein 7.8 gm/dl Albumin 3.2 gm/dl Bedside Lactic Acid Venous 1.35 mmol/L Urine Color YELLOW Urine Appearance CLEAR Urine pH 5.0 Urine Specific Fleming 1.014 Urine Protein NEG Urine Glucose (UA) NEG Urine Ketones NEG Urine Occult Blood NEG Urine Nitrite NEG Urine Bilirubin NEG Urine Urobilinogen NEG Urine Leukocyte Esterase NEG Arterial Blood pH 7.49 Arterial Blood Partial Pressure CO2 32 mmHg Arterial Blood Partial Pressure O2 63 mm/Hg Arterial Blood HCO3 24 mmol/L Arterial Blood Oxygen Saturation 91.8 % Arterial Blood Base Excess 1.3 mEq/L Arterial Blood Gas Delivery 10 L Diallo Test POS Diagnostic Results I have reviewed the radiology report as well as independently reviewed the images of the chest CT obtained August 06, 2017 and compared it to previous CT scan obtained March 05, 2017 Assessment & Plan Reason Critically Ill: Acute on chronic hypoxic respiratory failure PLAN: Resp: Acute on chronic hypoxic respiratory failure Pneumoconiosis Interstitial lung disease Obstructive sleep apnea Respiratory alkalosis -Patient on high flow nasal cannula and is symptomatically better -High-dose steroids, 40 mg Solu-Medrol IV q. 8 -Broad-spectrum antibiotics -Attempt to obtain sputum specimen -Patient at risk for respiratory failure, I have consented the patient for intubation -Patient at risk for need for long-term mechanical ventilation and difficult liberation from event given severe lung disease -Considerations given for pulmonary embolism, well score 1.5 secondary to heart rate, this is low risk -We will obtain venous duplex of bilateral lower extremities -Patient anticoagulated at this time with heparin Pleural effusion -Patient would benefit from thoracentesis -There is a safe window for approach noted on bedside ultrasound -Patient is currently anticoagulated for possible PE. -If bilateral venous duplex is negative will hold heparin and proceed with nonemergent thoracentesis CV: Elevated troponin -I suspect this is secondary to pulmonary disease Prolonged QTC on EKG -Avoid QT prolonging medications, I have discontinued azithromycin Fluids/Renal: Acute kidney injury -Possible prerenal component secondary to diuresis -However bedside ultrasound revealed occasional B lines on left posterior lung mcwilliams -Urine bland, will obtain renal ultrasound and fractional excretion of urea and urine eosinophils ID: Possible pneumonic process -Blood cultures pending -Attempt to obtain sputum culture -Continue IV vancomycin, Zosyn -Converted azithromycin to doxycycline secondary to prolonged QTC -Fungal blood culture in 1 3 beta glucan -MRSA nasal swab negative GI/Nutrition: Regular diet Hypoalbuminemia mild Heme: Heparin anticoagulation -If venous duplex negative will discontinue heparin Endocrine: ICU hyperglycemia protocol Vascular access: Peripheral IVs Code Status: Full code Patient has been consented for endotracheal intubation, central line, arterial line, bronchoscopy, thoracentesis, tube thoracostomy, blood transfusion I have personally spent 90 minutes of critical care time in the direct management of this patient. This is a life/limb threatening event. This includes time spent evaluating patient, direct bedside care, chart review, placing orders, interpretation of diagnostic studies, discussion with consultants, patient, and/or family members regarding treatment decisions, as well as other required patient management activities. This time is exclusive of all separately billable procedures, and teaching time and separate from and in addition to any other critical care service time.
--- NOTE | 2017-08-07 17:35 | Procedure Note ---
Procedure Note Date of Service August 07, 2017. Procedure Note Critical Care Medicine Point of Care Bedside Ultrasound Procedure: Limited Bedside Lung Ultrasound Procedure Date: August 07, 2017 Indication: Acute hypoxic respiratory failure, right-sided pleural effusion Attending: Bertha Brown DO Resident/Physician Gas Plant Operator: Not applicable Organs Examined: Lung Phrenic Point (axillary), PLAPS point (posterior) A lines visualized: Absent, Hemithorax: Bilaterally B lines visualized: Present, Hemithorax: Left Lung Sliding: Present, Hemithorax: Bilaterally Tissue-like Sign: Present, Hemithorax: Right Shred Sign: Absent, Hemithorax: Bilaterally Quad Sign: Present, Hemithorax: Right Type of effusions: Simple, Hemithorax: Right Interpleural distance: Greater than 5 cm Impression: Right-sided pleural effusion with consistency that appears to be simple fluid Plan: Follow-up thoracentesis Images obtained are saved for permanent record
--- NOTE | 2017-08-07 20:40 | DIAGNOSTIC IMAGING REPORT ---
BILATERAL LOWER EXTREMITY VENOUS DOPPLER HISTORY: Acute hypoxia with concern for possible DVT hypoxia COMPARISON STUDY: None. FINDINGS: There is normal compressibility, flow, and augmentation within the bilateral lower extremity deep venous systems. IMPRESSION: No sonographic evidence of deep venous thrombosis within the right or left lower extremity. Electronically signed by: Arley Stallings M.D. 08/07/2017 8:38 PM Dictated Date/Time: 08/07/2017 8:38 PM
--- NOTE | 2017-08-07 20:43 | DIAGNOSTIC IMAGING REPORT ---
(RENAL)RETROPERITON COMP HISTORY: 66 years-old Male corie acute kidney injury COMPARISON: PET CT 07/02/2017 TECHNIQUE: Multiple real-time sonogram images of the kidneys and bladder were obtained assessing grayscale appearance and color flow FINDINGS: The right kidney measures 9.9 cm in length and demonstrates mild diffuse thinning of the renal cortex. No right-sided renal calculi, hydronephrosis or suspicious mass lesions. Mildly increased echogenicity of the liver is incidentally noted, possibly reflecting hepatic steatosis. Left kidney measures 10.3 cm in length. Mild diffuse left-sided cortical thinning is also noted within the left kidney without renal calculi, hydronephrosis or suspicious mass lesions identified. Urinary bladder is distended with volume of 740 mL. Ureteral jets not identified. Study is limited with patient movement throughout the exam reported by optomechanical technician. IMPRESSION: 1. No renal calculi or hydronephrosis. 2. Mild cortical thinning of the bilateral kidneys. 3. Urinary bladder distention. Correlate clinically to exclude urinary bladder outlet obstruction. The above report was generated using voice recognition software. It may contain grammatical, syntax or spelling errors. Electronically signed by: Arley Stallings M.D. 08/07/2017 8:42 PM Dictated Date/Time: 08/07/2017 8:39 PM
[2017-08-07] MEDS: DOXYCYCLINE IV 100 MG in DEXTROSE 5% 100ML 100 ML IV SCH (21:15)
[2017-08-07] MEDS: ASPIRIN 81 MG ECTAB PO SCH (21:15)
[2017-08-07] MEDS: MAGNESIUM OXIDE 400 MG TAB PO SCH (21:15)
[2017-08-07 21:34] LABS: CALCIUM 8.8 mg/dl (8.5-10.1); CREATININE 1.83 mg/dl (0.60-1.40)
[2017-08-07 21:35] LABS: PTT PATIENT 51.7 SECONDS (21.0-31.0)
[2017-08-07 21:41] LABS: POTASSIUM 3.9 mmol/L (3.5-5.1)
[2017-08-08] VITALS (21 sets, daily range): BP systolic 85–130; BP diastolic 47–65; PULSE 49–94; TEMP 36.5–36.8; O2SAT 89–95
[2017-08-08] MEDS: METHYLPREDNISOLONE IV 40 MG in SYRINGE 0 ML IV SCH ×4 (00:05→23:59)
[2017-08-08] MEDS: PIPERACILL/TAZOBAC IV 4.5 GM in DEXTROSE 5% 100ML 100 ML IV SCH ×4 (00:05→23:59)
[2017-08-08] MEDS: ALBUT/IPRATROP 3MG/0.5MG NEB 3 ML VIAL INH SCH ×4 (02:16→19:28)
[2017-08-08 04:33] LABS: HEMATOCRIT 42.1 % (42-52); HEMOGLOBIN 14.4 g/dL (14.0-18.0); IG# 0.01 K/uL (0.00-0.02); LYMPH % 9.8 %; LYMPH ABS # 0.52 K/uL (1.2-3.4); MEAN CELL VOLUME 88.4 fL (80-100); MEAN CORPUSCULAR HEMOGLOBIN 30.3 pg (25-34); MEAN CORPUSCULAR HGB CONC 34.2 g/dl (32-36); MONO % 2.6 %; MONO ABS # 0.14 K/uL (0.11-0.59); NEUT % 87.4 %; NEUT ABS # 4.65 K/uL (1.4-6.5); PLATELET COUNT 235 K/uL (130-400); RED CELL DISTRIBUTION WIDTH SD 45.2 fL (36.4-46.3); WHITE BLOOD COUNT 5.32 K/uL (4.8-10.8)
[2017-08-08 05:00] LABS: CALCIUM 8.4 mg/dl (8.5-10.1); CREATININE 1.71 mg/dl (0.60-1.40)
[2017-08-08] MEDS: DOXYCYCLINE IV 100 MG in DEXTROSE 5% 100ML 100 ML IV SCH ×2 (08:12→21:11)
[2017-08-08] MEDS: VANCOMYCIN IV 1,250 MG in SODIUM CHLORIDE 0.9% 250ML 250 ML IV SCH ×2 (08:12→23:59)
[2017-08-08] MEDS: ATORVASTATIN 40 MG TAB PO SCH (08:13)
[2017-08-08] MEDS: POTASSIUM CHLORIDE 20 MEQ TABCR PO SCH (08:13)
[2017-08-08] MEDS: PANTOprazole SOD 40 MG TAB PO SCH (08:13)
[2017-08-08] MEDS ORDERED: PREGABALIN 150 MG CAP PO SCH (09:00)
--- NOTE | 2017-08-08 09:02 | Clinical Documentation Query ---
CLINICAL DOCUMENTATION QUERY 66 yo male admitted with acute respiratory failure. Pulse ox on admission was 78% on 5L NC, and currently 94% on high flow. EKG shows T wave inversion in anterolateral leads and QT lengthening. Troponins are 0.812 on admission and trending down to 0.686. In your clinical opinion is this patient being managed for: (x ) Type 2 [place] due to demand ischemia ( ) Not Agree ( ) Other explanation of clinical findings (No explanation is considered a No Response) ( ) Unable to determine ( ) Need to Discuss (Phone CDS or qliq) (No discussion is considered a No Response) The medical record reflects the following clinical findings, treatment, and risk factors. Clinical Indicators: As above Treatment: O2, ICU, Cardiology/Pulmonary consult, serial troponins, serial EKGs, echo, ABGs Risk Factors: Acute respiratory failure, COPD, severe hypoxia, pleural effusion Please clarify and document your clinical opinion in the progress notes and discharge summary. Terms such as "probable", "suspected", "likely", "questionable", "possible", or "still to be ruled out" are acceptable. IF IN AGREEMENT, YOU MUST DOCUMENT ABOVE DIAGNOSTIC STATEMENT IN DAILY PROGRESS NOTES AND DISCHARGE SUMMARY. This document is not part of the patient's record. Thank You, Adriana Logan RN [phone]
--- NOTE | 2017-08-08 10:11 | ECHOCARDIOGRAM REPORT ---
*NOTICE TO RECEIVING DEMOCRAT AGENCY This information is strictly Confidential and protected under [place] law. [place] law prohibits you from making any further disclosure of this information unless further disclosure is expressly permitted by the written consent of the person to whom it pertains or is authorized by law. A general authorization for the release of medical or other information is not sufficient for this purpose. Hospital accepts no responsibility if the information is made available to any other person, INCLUDING THE PATIENT. Interpretation Summary * Name: LARA BRANDT Study Date: 08/08/2017 07:05 AM BP: 97/55 mmHg * [facility] HR: 53 * : 1950 (M/d/yyyy) Gender: Male Height: 69 in * Age: 66 yrs Ethnicity: [place] Weight: 195 lb * Ordering Physician: Gurpreet Acuña * Performed By: Noa Joiner RDCS * * Reason For Study: LIMITED FOLLOW-UP, WALL MOTION ABNORMALITIES * BSA: 2.0 m2 * -- Conclusions -- * 1. Normal LV size, mild concentric LVH. * 2. Normal LV systolic function. LVEF 55-60%. Abnormal septal motion consistent with RV volume/pressure overload. * 3. Mildly dilated RV with normal RV function. * 4. Compared with prior study on 03/05/2017: No significant changes. Procedure Details * There were technical limitations due to patient'spoor positioning Left Ventricle * The left ventricle is grossly normal size. * There is mild concentric left ventricular hypertrophy. * Ejection Fraction = 55-60%. * Flattened septum is consistent with RV volume overload. Right Ventricle * The right ventricle is moderately dilated. * The right ventricular systolic function is normal as assessed by tricuspid annular plane systolic excursion (TAPSE) (normal >1.5 cm). Atria * The left atrial size is normal. * The right atrium is borderline dilated. Mitral Valve * Prolapse of the anterior mitral leaflet. Aortic Valve * The aortic valve opens well. * No hemodynamically significant valvular aortic stenosis. MMode 2D Measurements and Calculations IVSd 1.4 cm IVSs 1.5 cm LVIDd 5.0 cm LVIDs 3.3 cm LVPWd 1.2 cm LVPWs 1.7 cm IVS/LVPW 1.1 FS 34.3 % EDV(Teich) 119.4 ml ESV(Teich) 44.1 ml EF(Teich) 63.0 % EDV(cubed) 126.5 ml ESV(cubed) 35.9 ml EF(cubed) 71.6 % % IVS thick 11.0 % % LVPW thick 39.7 % LV mass(C)d 264.2 grams LV mass(C)dI 129.3 grams/m\S\2 LV mass(C)s 204.3 grams LV mass(C)sI 100.0 grams/m\S\2 SV(Teich) 75.2 ml SI(Teich) 36.8 ml/m\S\2 SV(cubed) 90.6 ml SI(cubed) 44.3 ml/m\S\2 LA dimension 4.1 cm LVOT diam 1.9 cm LVOT area 2.9 cm\S\2
--- NOTE | 2017-08-08 10:21 | Procedure Note ---
Procedure Note Date of Service August 08, 2017. Procedure Note Procedures: Right sided Thoracentesis Consent: obtained via the patient and placed into the chart Pre-Procedural Dx: Pleural effusion Post-Procedural Dx:Pleural effusion Analgesia: 8cc of 1% Liquid Lidocaine Procedure: The patient was placed in an upright position and thoracic US was used to select a spot for the procedure. A spot along the posterior axillary line was marked in the 7th intercostal space. The patient was then draped and prepped in a sterile fashion. A modified Seldinger technique was then used for catheter placement. Flowing this approximately 900cc of yellow pleural fluid was removed. The patient was then cleaned and placed at a 60 degree angle in the bed were the US was used to evaluate for possible pneumothorax. The US showed good lung sliding and starry night sign. EBL: 2cc Complications: none
--- NOTE | 2017-08-08 10:33 | PULMONARY CONSULTATION ---
DATE OF CONSULTATION: 08/08/2017 REASON FOR CONSULTATION: Lgdit-hd-hheoptc hypoxic respiratory failure/pneumoconiosis. HISTORY OF PRESENT ILLNESS: A 66-year-old white male followed by Dr. Heller from pulmonary medicine was admitted by Dr. Gurpreet Acuña on 08/07/2017 because of zaxfc-lb-lnneslu hypoxic respiratory failure. The patient was previously diagnosed with black lung/pneumoconiosis and has been receiving benefits for several years. He worked in the [employer] and [employer] for close to 30 years. He also has a strong smoking history of a pack a day for at least 25 years, having quit 27 years ago. He was also started on noninvasive positive pressure ventilation for obstructive sleep apnea at night and has been on oxygen therapy at home. He had been on 2 L, but that had been increased to 4 L and he has noted progressive dyspnea over the past several months but specifically over the past several days and weeks prior to admission. He was admitted to the ICU and seen by Dr. Brown yesterday. His pulmonary functions have been characterized as mixed obstructive and restrictive and his BiPAP setting has been IPAP of 20, EPAP of 12 cm along with oxygen at 3 L nocturnally. He has also demonstrated a pulmonary nodule with previous imaging from 08/22/2012, 09/06/2016, and 03/05/2017. PET scan has shown FDG avidity. EBUS/ENB evaluation was offered by Dr. Heller but the family wished to wait 4 weeks. He has been on Advair Diskus inhaler and Incruse Ellipta along with his nebulizer with DuoNeb solution. Venous Doppler study yesterday shows no evidence for deep venous thrombosis involving the right or left lower extremity despite increasing pedal edema. The patient has undergone right heart catheterization in April with PA pressures estimated at 40/25 with a mean pressure 36. Myocardial perfusion study done in 04/2017 was negative for Lexiscan-induced ischemia with a subtle fixed anterior septal defect without corresponding wall motion abnormality. His LVEF was 57%. Spirometry in 08/09/2014 suggested moderate obstruction and the patient did desaturate with exertion on the 6-minute walk requiring 1.5 L of oxygen with exertion. CAT scan of the chest in 07/2017 compared to 03/05/2017 showed redemonstration of advanced chronic lung disease compatible with pneumoconiosis. Interval development of extensive consolidation involving the right upper lobe and superior segment of the right lower lobe suspicious for pneumonia with also progressive massive fibrosis and underlying mass cannot be ruled out. Mediastinal and right greater than left hilar lymphadenopathy was noted with a moderate right pleural effusion also seen. PET CT scan reviewed from 07/02/2017 showed not only significant progression of the extensive FDG avid right upper lobe airspace opacity, but neoplasm cannot be ruled out with FDG avid mediastinal and hilar lymph nodes also seen. For details of past medical history, medications, family and social history, I refer your current and past records. PHYSICAL EXAMINATION: GENERAL: Well-developed, well-nourished white male, receiving high flow O2, appearing stable. CURRENT VITAL SIGNS: Pulse 110 and irregular with PVCs, sometimes couplets, respiratory rate 20, blood pressure 97/55, O2 sat 94% on 40% FIO2. SKIN: Without lesion. HEENT: Atraumatic, normocephalic. PERRLA. EOMI. Conjunctivae pale. Sclerae nonicteric. Fundi poorly visualized. NECK: Neck veins are not distended at 45 degrees. No evidence of adenopathy in the supra or infraclavicular areas. LUNGS: Coarse rhonchi and wheezes, right base with dullness. CARDIAC: Tachycardic rhythm. I do not appreciate an S3. ABDOMEN: Soft, protuberant. EXTREMITIES: Trace pedal edema. No clubbing. Peripheral cyanosis. NEUROLOGIC: Intact. No lateralizing signs. OVERALL ASSESSMENT: A 66-year-old with significant pneumoconiosis and chronic obstructive pulmonary disease with a suspicious right upper lobe nodule that was right FDG avid, but now with dense consolidation and pneumonia involving virtually the entire right lung with probable subpulmonic right pleural effusion. PLAN: The patient is currently receiving Protonix, IV vancomycin, IV methylprednisolone, IV doxycycline, and IV Zosyn. Heparin has been discontinued. I discussed this case with Dr. Brown last night and felt pulmonary thromboembolic disease was much less likely in the differential. Certainly an underlying neoplasm cannot be ruled out but the patient is in a marginal state from limited ventilatory reserve and may actually require mechanical ventilator assistance if he demonstrates clinical deterioration. I think a diagnostic and possible therapeutic thoracentesis would be helpful today if there is a window and enough fluid to drain. Certainly by CAT scan, there appears to be a moderate pleural effusion. Bronchoscopic evaluation with EBUS/ENB also would be helpful, but would not be tolerated at this stage of his disease unless he would show significant clinical improvement. We will follow along with you. We will discuss his case with Dr. Brown and Dr. Heller.
--- NOTE | 2017-08-08 10:42 | DIAGNOSTIC IMAGING REPORT ---
SINGLE VIEW CHEST CLINICAL HISTORY: Status post thoracentesis. FINDINGS: An AP, portable, upright chest radiograph is compared to study dated 08/07/2017 and correlated with chest CT dated 08/06/2017. The examination is degraded by portable technique and patient rotation. The heart is enlarged. The pulmonary vasculature is noncongested. Advanced emphysema and chronic interstitial thickening is similar to previous. Patchy airspace consolidation is again seen throughout the right lung, most confluent in the right upper lobe. This is similar to yesterday. The left lung is grossly clear. There is a small right pleural effusion. No pneumothorax is seen. The skeletal structures are osteopenic. The bony thorax is grossly intact. IMPRESSION: 1. No pneumothorax is identified post procedure. 2. Cardiomegaly and emphysema. 3. Consolidation throughout the right lung is unchanged and typical in appearance for pneumonia. 4. There is a small residual right pleural effusion. Electronically signed by: Amadou Hair M.D. 08/08/2017 10:41 AM Dictated Date/Time: 08/08/2017 10:39 AM
[2017-08-08 10:57] LABS: PLEURAL FLUID TOTAL PROTEIN 4.5 g/dl
--- NOTE | 2017-08-08 14:58 | Progress Note ---
Subjective Date of Service: August 08, 2017. Subjective Pt evaluation today including: conversation w/ patient, physical exam, lab review, review of studies, conversation w/ senior safety management consultant, review of inpatient medication list Pain: no pain PO Intake: ate breakfast, not hungry for lunch Voiding: no voiding problems breathing a little easier in late morning after thoracentesis for 900cc this morning discussed with pulmonology, working up pleural effusion repeat CXR showed opacities, nearly resolved effusion appreciate critical care recommendations vitals stable, decreased FiO2 requirements reviewed labs, Cr down slightly at 1.7 troponin trended down from 0.8 to 0.6 reviewed echocardiogram, preserved EF, normal RV function Problem List Medical Problems: (1) Hypoxemia Status: Acute (2) Pleural effusion, right Status: Acute (3) Pneumoconiosis Status: Acute Review of Systems Constitutional: + weakness, + fatigue Respiratory: + shortness of breath, + dyspnea on exertion All Other Systems: Reviewed and Negative Medications Current Inpatient Medications Medications (Trade) Dose Ordered Sig/Gail Route Start Time Stop Time Status Last Admin Dose Admin Aspirin (Ecotrin Tab) 81 mg HS PO 08/07/17 21:00 09/06/17 20:59 08/07/17 21:15 81 MG Pregabalin (Lyrica Cap) 150 mg DAILY PO 08/08/17 09:00 09/07/17 08:59 08/08/17 08:15 150 MG Pantoprazole Sodium (Protonix Tab) 40 mg QAM PO 08/08/17 09:00 09/07/17 08:59 08/08/17 08:13 40 MG Acetaminophen (Tylenol Tab) 650 mg Q4H PRN PO 08/07/17 14:15 09/06/17 14:14 Lorazepam (Ativan Inj) 0.5 mg Q4H PRN IV 08/07/17 14:15 09/06/17 14:14 Al Hydrox/Mg Hydrox/Simethicone (Maalox Max Susp) 15 ml Q4H PRN PO 08/07/17 14:15 09/06/17 14:14 Magnesium Hydroxide (Milk Of Magnesia Susp) 30 ml Q12H PRN PO 08/07/17 14:15 09/06/17 14:14 Ondansetron HCl (Zofran Inj) 4 mg Q6H PRN IV 08/07/17 14:15 09/06/17 14:14 Morphine Sulfate (MoRPHine SULFATE INJ) 2 mg Q2H PRN IV 08/07/17 14:15 08/21/17 14:14 Miscellaneous Information (Icu Protocol For Hyperglycemia) 1 ea PRN PRN N/A 08/07/17 14:15 08/09/17 14:14 Piperacillin Sod/ Tazobactam Sod 4.5 gm/Dextrose 120 ml @ 30 mls/hr Q8H IV 08/07/17 16:00 08/14/17 15:59 08/08/17 08:12 30 MLS/HR Miscellaneous Information (Consult) 1 ea UD PRN N/A 08/07/17 14:30 09/06/17 14:29 Miscellaneous Information (Consult) 1 ea UD PRN N/A 08/07/17 14:30 09/06/17 14:29 Albuterol/ Ipratropium (Duoneb) 3 ml Q6R INH 08/07/17 15:00 09/06/17 14:59 08/08/17 14:02 3 ML Albuterol Sulfate (Ventolin 0.083% 2.5MG/3ML Neb) 2.5 mg Q4R PRN INH 08/07/17 14:45 09/06/17 14:44 Atorvastatin Calcium (Lipitor Tab) 40 mg QAM PO 08/08/17 09:00 09/07/17 08:59 08/08/17 08:13 40 MG Potassium Chloride (Klor-Con Tab) 20 meq QAM PO 08/08/17 09:00 09/07/17 08:59 08/08/17 08:13 20 MEQ Lorazepam 0.5 mg/ Syringe 1 ml @ 1 mls/min Q4H PRN IV 08/07/17 16:00 09/06/17 15:59 Vancomycin HCl 1250 mg/Sodium Chloride 275 ml @ 125 mls/hr Q16H IV 08/08/17 08:00 08/14/17 23:59 08/08/17 08:12 125 MLS/HR Doxycycline Hyclate 100 mg/ Dextrose 110 ml @ 50 mls/hr BID IV 08/07/17 21:00 08/14/17 20:59 08/08/17 08:12 50 MLS/HR Magnesium Oxide (Mag-Ox Tab) 400 mg QPM PO 08/07/17 21:00 09/06/17 20:59 08/07/17 21:15 400 MG Objective Vital Signs Date Time Temp Pulse Resp B/P (MAP) Pulse Ox O2 Delivery O2 Flow Rate FiO2 08/08/17 14:02 66 20 94 Nasal Cannula 40.0 60 08/08/17 14:00 66 18 101/62 (75) 95 High Flow Oxygen 08/08/17 12:00 94 High Flow Oxygen 40.0 60 08/08/17 12:00 36.5 87 21 99/52 (68) 94 High Flow Oxygen 40.0 60 08/08/17 11:21 70 20 130/47 (74) 94 High Flow Oxygen 40.0 60 08/08/17 10:34 85/54 (64) 08/08/17 10:00 91 20 94 High Flow Oxygen 40.0 60 08/08/17 08:00 High Flow Oxygen 40.0 60 08/08/17 08:00 36.5 88 18 128/54 (78) 90 High Flow Oxygen 40.0 60 08/08/17 07:01 53 20 94 Nasal Cannula 40.0 60 08/08/17 06:01 58 15 97/55 (69) 94 High Flow Oxygen 40.0 60 08/08/17 05:01 49 14 104/52 (69) 93 High Flow Oxygen 40.0 60 08/08/17 04:01 66 17 105/62 (76) 94 High Flow Oxygen 40.0 60 08/08/17 04:00 92 High Flow Oxygen 40.0 60 08/08/17 03:01 70 20 117/61 (79) 94 High Flow Oxygen 40.0 60 08/08/17 02:17 70 22 93 Nasal Cannula 40.0 60 08/08/17 02:01 59 16 114/64 (81) 94 High Flow Oxygen 40.0 60 08/08/17 01:01 55 20 108/53 (71) 94 High Flow Oxygen 40.0 60 08/08/17 00:01 36.6 59 18 93/58 (70) 93 High Flow Oxygen 40.0 60 08/07/17 23:59 92 High Flow Oxygen 40.0 60 08/07/17 23:01 57 16 101/60 (74) 92 High Flow Oxygen 40.0 60 08/07/17 22:01 67 20 100/58 (72) 93 High Flow Oxygen 40.0 60 08/07/17 21:01 71 23 116/59 (78) 92 High Flow Oxygen 40.0 60 08/07/17 20:46 71 20 93 Nasal Cannula 40.0 60 08/07/17 20:00 36.8 68 20 116/66 (83) 95 High Flow Oxygen 40.0 60 08/07/17 17:30 66 20 91 High Flow Oxygen 40.0 60 08/07/17 17:15 63 18 92 08/07/17 17:01 68 18 118/64 (82) 92 High Flow Oxygen 40.0 60 08/07/17 17:00 68 23 91 08/07/17 16:45 74 19 94 08/07/17 16:30 78 23 94 08/07/17 16:15 70 26 94 High Flow Oxygen 40.0 60 08/07/17 16:01 66 17 124/73 (90) 93 08/07/17 16:00 76 22 94 08/07/17 15:50 95 Non-Rebreather 15.0 100 08/07/17 15:49 36.7 72 23 125/77 (93) 94 Non-Rebreather 15.0 08/07/17 15:02 78 22 113/66 94 Non-Rebreather 10.0 Physical Exam General Appearance: no apparent distress, + obese Eyes: normal inspection, EOMI, sclerae normal ENT: normal ENT inspection, hearing grossly normal, pharynx normal Neck: supple, no adenopathy, no JVD, trachea midline Respiratory/Chest: chest non-tender, no respiratory distress, no accessory muscle use, + decreased breath sounds (right base), + crackles Cardiovascular: regular rate, rhythm, no edema, no gallop, no JVD, no murmur Abdomen: normal bowel sounds, non tender, soft, no organomegaly Extremities: normal range of motion, non-tender, normal inspection, no pedal edema, no calf tenderness, pelvis stable 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iatric: body sander II-XII nml as tested, no motor/sensory deficits, alert, normal mood/affect, oriented x 3 Skin: normal color, warm/dry, no rash Laboratory Results Last 24 Hours Test 08/07/17 21:05 08/08/17 00:01 08/08/17 01:44 08/08/17 04:00 Activated Partial Thromboplast Time 51.7 SECONDS Partial Thromboplastin Ratio 2.0 Sodium Level 135 mmol/L 136 mmol/L Potassium Level 3.9 mmol/L 4.0 mmol/L Chloride Level 100 mmol/L 104 mmol/L Carbon Dioxide Level 26 mmol/L 25 mmol/L Anion Gap 8.0 mmol/L 7.0 mmol/L Blood Urea Nitrogen 26 mg/dl 27 mg/dl Creatinine 1.83 mg/dl 1.71 mg/dl Est Creatinine Clear Calc Drug Dose 43.1 ml/min 46.2 ml/min Estimated GFR () 43.3 47.0 Estimated GFR (Non- 37.3 40.5 BUN/Creatinine Ratio 14.0 16.1 Random Glucose 191 mg/dl 159 mg/dl Calcium Level 8.8 mg/dl 8.4 mg/dl Troponin I 0.748 ng/ml 0.686 ng/ml Bedside Glucose 155 mg/dl White Blood Count 5.32 K/uL Red Blood Count 4.76 M/uL Hemoglobin 14.4 g/dL Hematocrit 42.1 % Mean Corpuscular Volume 88.4 fL Mean Corpuscular Hemoglobin 30.3 pg Mean Corpuscular Hemoglobin Concent 34.2 g/dl Platelet Count 235 K/uL Mean Platelet Volume 10.0 fL Neutrophils (%) (Auto) 87.4 % Lymphocytes (%) (Auto) 9.8 % Monocytes (%) (Auto) 2.6 % Eosinophils (%) (Auto) 0.0 % Basophils (%) (Auto) 0.0 % Neutrophils # (Auto) 4.65 K/uL Lymphocytes # (Auto) 0.52 K/uL Monocytes # (Auto) 0.14 K/uL Eosinophils # (Auto) 0.00 K/uL Basophils # (Auto) 0.00 K/uL RDW Standard Deviation 45.2 fL RDW Coefficient of Variation 14.0 % Immature Granulocyte % (Auto) 0.2 % Immature Granulocyte # (Auto) 0.01 K/uL Magnesium Level 2.0 mg/dl Test 08/08/17 10:20 08/08/17 10:41 Pleural Fluid Source RIGHT LUNG Pleural Fluid Color YELLOW Pleural Fluid Appearance CLEAR Pleural Fluid WBC 352 /uL Pleural Fluid RBC < 3000 /uL Pleural Fluid pH 7.43 Pleural Fluid Polynuclear WBCs % 18.5 % Pleural Fluid Mononuclear WBCs % 81.5 % Pleural Fluid Total Protein 4.5 g/dl Pleural Fluid LDH 168 IU Pleural Fluid Glucose 159 mg/dl Pleural Fluid Amylase 8 U/L Assessment and Plan 66 y/o M Hx ILD, 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 he pt states that he has been progressively SOB over the past 4 weeks. His oxygen demand has steadily increased and he cannot take more than a few steps without becoming excessively SOB. He underwent a CT chest the prior day which revealed consolidations in the right upper lobe and superior segment of the right lower lobe concerning for pneumonia, although progressive massive fibrosis and an underlying mass could not be excluded as alternative diagnoses. His SOB acutely worsened this AM and his states she was unable to keep his oxygen saturation above the 70s and presented to the hospital therefore. He is requiring 10L 02 at the time of admission. Initial labs are notable for an elevated troponin and mild CARINE. An ABG shows hypoxia and alkalosis. A CXR mentions a R pleural effusion, however, this may be a consolidation if compared to the CT one day earlier. - Acute respiratory failure with hypoxia on chronic respiratory failure, had increased O2 requirements, increased work of breathing requiring 40%FiO2 via high flow nasal canula, no accessory muscles or distress today due to COPD, pneumoconiosis, pneumonia, pleural effusion treat above conditions, titrate oxygen as needed no need for ventilation today - Right sided pleural effusion: thoracentesis this morning, 900cc out appears exudative on initial analysis await cultures and cytology has FDG avid right sided lung nodule that patient has declined EBUS as outpatient - Multifocal pneumonia: treat with Zosyn, Vancomycin and Doxycycline Zithromax stopped due to QT prolongation steroids stopped - Type II NSTEMI due to demand ischemia no chest pain or pressure, no EKG changes manage medically echo shows preserved EF - Acute kidney injury likely prerenal with infection, dehydration Cr up slightly to 1.8 slightly and then down to 1.7 this morning continue to follow - Pneumoconiosis: palliative care consulted - Right lung nodule: FDG avid on PET scan in the past has refused EBUS in the past certainly not a candidate for bronchoscopy given current respiratory status will see if pleural fluid analysis provides a diagnosis Full code - heparin prophylaxis
--- NOTE | 2017-08-08 15:35 | Cardiology Consultation ---
Cardiology Consultation Date of Consultation: August 08, 2017. Requesting Physician: Stephanie Reason for Consultation: Elevated troponin Pt evaluation today including: conversation w/ patient, conversation w/ family , physical exam, chart review, lab review, review of studies, review of inpatient medication list History of Present Illness Mr. Ratliff is a very pleasant 66-year-old man with a history of pneumoconiosis, COPD, pulmonary hypertension, carotid artery disease status post carotid endarterectomy who was admitted to the ICU yesterday in the setting of acute respiratory failure. Patient previously seen by Cardiology in April of 2017 when right heart catheterization requested as part of pulmonary evaluation. At that time nuclear SPECT was negative for significant ischemia. There was a subtle apical septal/apical fixed perfusion defect thought to be artifact. Right heart catheterization that time showed elevated biventricular filling pressures with [id number] post capillary pulmonary hypertension. Gentle diuretics recommended. Since that time is continue to follow up with pulmonology. Has had progressive decline respiratory status most notable over the last several weeks. states that over the last 5 days has been short of breath just walking across the room, has been tachycardic to the 120s and patient has had difficulty maintaining oxygen saturations in the low 80s on home nasal cannula. During this time patient denies any chest pain, palpitations any worsened lower extremity edema. On admission noted to have worsening right lung infiltrate in the setting of recently noted FDG avid lesions on PET-CT. Also with right pleural effusion status post thoracentesis today. Initial cardiac enzymes elevated with troponin of 0.8 which is subsequently trended down. Initial EKG showed sinus rhythm with new precordial T-wave inversions. Past Medical/Surgical History Medical Problems: (1) Acute respiratory failure with hypoxia (2) Black lung (3) HTN (hypertension) (4) Lung nodule (5) Troponin I above reference range Oxygen-dependent COPD(5L)/pulmonary emphysema, history of pneumoconiosis, acid reflux, hyperlipidemia, hypertension, history of right MCA-CVA, carotid stenosis status post right-sided endarterectomy 03/2012, degenerative disc disease with neuropathy, and obesity. He is a former smoker: 10 pack year quit 1999. Family History Denies premature coronary disease or sudden cardiac Social History Smoking Status: Former Smoker History of Alcohol Use: Yes (MONTHLY) Review of Systems Respiratory: + shortness of breath, + dyspnea on exertion All Other Systems: Reviewed and Negative Allergies Coded Allergies: No Known Allergies (Verified , 08/07/17) Medications Current Inpatient Medications Medications (Trade) Dose Ordered Sig/Gail Route Start Time Stop Time Status Last Admin Dose Admin Aspirin (Ecotrin Tab) 81 mg HS PO 08/07/17 21:00 09/06/17 20:59 08/07/17 21:15 81 MG Pregabalin (Lyrica Cap) 150 mg DAILY PO 08/08/17 09:00 09/07/17 08:59 08/08/17 08:15 150 MG Pantoprazole Sodium (Protonix Tab) 40 mg QAM PO 08/08/17 09:00 09/07/17 08:59 08/08/17 08:13 40 MG Acetaminophen (Tylenol Tab) 650 mg Q4H PRN PO 08/07/17 14:15 09/06/17 14:14 Lorazepam (Ativan Inj) 0.5 mg Q4H PRN IV 08/07/17 14:15 09/06/17 14:14 Al Hydrox/Mg Hydrox/Simethicone (Maalox Max Susp) 15 ml Q4H PRN PO 08/07/17 14:15 09/06/17 14:14 Magnesium Hydroxide (Milk Of Magnesia Susp) 30 ml Q12H PRN PO 08/07/17 14:15 09/06/17 14:14 Ondansetron HCl (Zofran Inj) 4 mg Q6H PRN IV 08/07/17 14:15 09/06/17 14:14 Morphine Sulfate (MoRPHine SULFATE INJ) 2 mg Q2H PRN IV 08/07/17 14:15 08/21/17 14:14 Miscellaneous Information (Icu Protocol For Hyperglycemia) 1 ea PRN PRN N/A 08/07/17 14:15 08/09/17 14:14 Piperacillin Sod/ Tazobactam Sod 4.5 gm/Dextrose 120 ml @ 30 mls/hr Q8H IV 08/07/17 16:00 08/14/17 15:59 08/08/17 08:12 30 MLS/HR Miscellaneous Information (Consult) 1 ea UD PRN N/A 08/07/17 14:30 09/06/17 14:29 Miscellaneous Information (Consult) 1 ea UD PRN N/A 08/07/17 14:30 09/06/17 14:29 Albuterol/ Ipratropium (Duoneb) 3 ml Q6R INH 08/07/17 15:00 09/06/17 14:59 08/08/17 14:02 3 ML Albuterol Sulfate (Ventolin 0.083% 2.5MG/3ML Neb) 2.5 mg Q4R PRN INH 08/07/17 14:45 09/06/17 14:44 Atorvastatin Calcium (Lipitor Tab) 40 mg QAM PO 08/08/17 09:00 09/07/17 08:59 08/08/17 08:13 40 MG Potassium Chloride (Klor-Con Tab) 20 meq QAM PO 08/08/17 09:00 09/07/17 08:59 08/08/17 08:13 20 MEQ Lorazepam 0.5 mg/ Syringe 1 ml @ 1 mls/min Q4H PRN IV 08/07/17 16:00 09/06/17 15:59 Vancomycin HCl 1250 mg/Sodium Chloride 275 ml @ 125 mls/hr Q16H IV 08/08/17 08:00 08/14/17 23:59 08/08/17 08:12 125 MLS/HR Doxycycline Hyclate 100 mg/ Dextrose 110 ml @ 50 mls/hr BID IV 08/07/17 21:00 08/14/17 20:59 08/08/17 08:12 50 MLS/HR Methylprednisolone Sodium Succinate 40 mg/Syringe 0.64 ml @ 1.5 mls/min Q8H IV 08/08/17 00:00 09/07/17 00:00 08/08/17 08:12 1.5 MLS/MIN Magnesium Oxide (Mag-Ox Tab) 400 mg QPM PO 08/07/17 21:00 09/06/17 20:59 08/07/17 21:15 400 MG Heparin Sodium (Porcine) (Heparin Sq 5000 Unit/0.5ml) 5,000 unit Q8@0000,0800,1600 SQ 08/08/17 15:00 09/07/17 14:59 Physical Exam Vital Signs Past 12 Hours Date Time Temp Pulse Resp B/P (MAP) Pulse Ox O2 Delivery O2 Flow Rate FiO2 08/08/17 14:02 66 20 94 Nasal Cannula 40.0 60 08/08/17 14:00 66 18 101/62 (75) 95 High Flow Oxygen 08/08/17 12:00 94 High Flow Oxygen 40.0 60 08/08/17 12:00 36.5 87 21 99/52 (68) 94 High Flow Oxygen 40.0 60 08/08/17 11:21 70 20 130/47 (74) 94 High Flow Oxygen 40.0 60 08/08/17 10:34 85/54 (64) 08/08/17 10:00 91 20 94 High Flow Oxygen 40.0 60 08/08/17 08:00 High Flow Oxygen 40.0 60 08/08/17 08:00 36.5 88 18 128/54 (78) 90 High Flow Oxygen 40.0 60 08/08/17 07:01 53 20 94 Nasal Cannula 40.0 60 08/08/17 06:01 58 15 97/55 (69) 94 High Flow Oxygen 40.0 60 08/08/17 05:01 49 14 104/52 (69) 93 High Flow Oxygen 40.0 60 08/08/17 04:01 66 17 105/62 (76) 94 High Flow Oxygen 40.0 60 08/08/17 04:00 92 High Flow Oxygen 40.0 60 General: Uncomfortable, intermittently coughing high flow nasal cannula in place Eyes: Sclerae anicteric, extraocular movements intact HENT: Oropharynx clear mucous membranes moist Neck: Normal carotid upstrokes, no bruits. No JVD. Prior carotid endarterectomy scar on the right Lungs: Few crackles bilaterally, decreased breath sounds at right base Cardiac: Tachycardic, regular, distant heart sounds, no murmurs, rubs or gallops. Vascular: 2+ radial, DP and PT pulses. No varicosities. Abdomen: Soft, nontender, nondistended, positive bowel sounds. Extremities: Well perfused, no peripheral edema Skin: No rashes or lesions. Neuro: Nonfocal Psych: Alert orient x3, normal affect and mood Data Laboratory Results: Last 24 Hours Test 08/07/17 21:05 08/08/17 00:01 08/08/17 01:44 08/08/17 04:00 Activated Partial Thromboplast Time 51.7 SECONDS Partial Thromboplastin Ratio 2.0 Sodium Level 135 mmol/L 136 mmol/L Potassium Level 3.9 mmol/L 4.0 mmol/L Chloride Level 100 mmol/L 104 mmol/L Carbon Dioxide Level 26 mmol/L 25 mmol/L Anion Gap 8.0 mmol/L 7.0 mmol/L Blood Urea Nitrogen 26 mg/dl 27 mg/dl Creatinine 1.83 mg/dl 1.71 mg/dl Est Creatinine Clear Calc Drug Dose 43.1 ml/min 46.2 ml/min Estimated GFR () 43.3 47.0 Estimated GFR (Non- 37.3 40.5 BUN/Creatinine Ratio 14.0 16.1 Random Glucose 191 mg/dl 159 mg/dl Calcium Level 8.8 mg/dl 8.4 mg/dl Troponin I 0.748 ng/ml 0.686 ng/ml Bedside Glucose 155 mg/dl White Blood Count 5.32 K/uL Red Blood Count 4.76 M/uL Hemoglobin 14.4 g/dL Hematocrit 42.1 % Mean Corpuscular Volume 88.4 fL Mean Corpuscular Hemoglobin 30.3 pg Mean Corpuscular Hemoglobin Concent 34.2 g/dl Platelet Count 235 K/uL Mean Platelet Volume 10.0 fL Neutrophils (%) (Auto) 87.4 % Lymphocytes (%) (Auto) 9.8 % Monocytes (%) (Auto) 2.6 % Eosinophils (%) (Auto) 0.0 % Basophils (%) (Auto) 0.0 % Neutrophils # (Auto) 4.65 K/uL Lymphocytes # (Auto) 0.52 K/uL Monocytes # (Auto) 0.14 K/uL Eosinophils # (Auto) 0.00 K/uL Basophils # (Auto) 0.00 K/uL RDW Standard Deviation 45.2 fL RDW Coefficient of Variation 14.0 % Immature Granulocyte % (Auto) 0.2 % Immature Granulocyte # (Auto) 0.01 K/uL Magnesium Level 2.0 mg/dl Test 08/08/17 10:20 08/08/17 10:41 Pleural Fluid Source RIGHT LUNG Pleural Fluid Color YELLOW Pleural Fluid Appearance CLEAR Pleural Fluid WBC 352 /uL Pleural Fluid RBC < 3000 /uL Pleural Fluid pH 7.43 Pleural Fluid Polynuclear WBCs % 18.5 % Pleural Fluid Mononuclear WBCs % 81.5 % Pleural Fluid Total Protein 4.5 g/dl Pleural Fluid LDH 168 IU Pleural Fluid Glucose 159 mg/dl Pleural Fluid Amylase 8 U/L EKG:Sinus rhythm with new T-wave inversion most notable in V3, V4 Telemetry reviewed: No events Echocardiogram--preserved LV function, mildly dilated RV with normal RV function [facility] 04/2017 RA 12 RV 51/17 PA 50/25 (36) PAWP 20 Sats - PaSat 69% AoSat 99% on 6L RA 73% RV 71% IVC 71% SVC 71% Qp/Qs 0.93 Magui CO/CI 4.2/2.0 Thermo CO/CI 5.4/2.5 TPG 16 PVR 2.96 wood unit DPG 5 SUMMARY: 1. Elevated left and right sided filling pressures 2. Preserved cardiac output 3. Pulmonary hypertension (post-capillary PH). LEXISCAN SPECT 04/2017 1. Negative myocardial perfusion scan for Lexiscan induced ischemia. 2. Subtle fixed anteroseptal defect without corresponding wall motion abnormality likely artifact but could represent a small prior infarct in the setting of septal Qwaves on ECG. 3. Normal LV size and function. LVEF 57% with no regional wall motion abnormalities. 4. Non-diagnostic stress ECG due to inability to reach target HR with Lexiscan. Assessment & Plan 1. Myocardial necrosis/elevated troponin/T-wave abnormalities on EKG 2. Acute respiratory failure/right lobe infiltrate/pleural effusions/ pneumoconiosis/COPD 3. Post capillary pulmonary hypertension/HFpEF 4. Chronic kidney disease 5. Peripheral vascular disease with prior CVA and right carotid artery 6. Prolonged QT Patient noted on admission to have mild troponin elevation which has subsequently trended down. Low suspicion for true acute coronary syndrome and suspect likely demand ischemia in setting of presenting hypoxia, tachycardia and likely some underlying coronary artery disease. Presently patient is chest pain-free, hemodynamically and electrically stable and LV function unchanged- no indication for additional ischemic evaluation at this time. Continue home aspirin and statin. Otherwise patient appears well perfused without significant congestion on exam. Agree with continuing to hold home diuretics in the setting of acute on chronic kidney injury. Caution with additional QTC prolonging agents. Will follow in the periphery. Please contact as new questions arise.
[2017-08-08] MEDS: HEPARIN SOD 5000 UNIT/0.5 ML CARP SQ SCH (15:53)
--- NOTE | 2017-08-08 16:08 | Critical Care Progress Note ---
Critical Care Progress Note Date of Service August 08, 2017. ICU Day ICU Day Number: [address] Brown Subjective Moderate chest pain after thoracentesis associated with movement, currently pain is tolerable. Appreciates being on oxygen mask as opposed to high flow nasal cannula feeling better than yesterday Objective General: Alert. nontoxic. Skin: Warm, dry, Head: Atraumatic Ears, nose, mouth and throat: airway patent Cardiovascular: Normal peripheral perfusion Respiratory: no accessory muscle use, mild tachypnea, able to speak in full sentences Gastrointestinal: Non distended Musculoskeletal: No deformity Assessment & Plan PLAN: Neuro: Chronic back pain -On Lyrica Resp: Acute on chronic hypoxic respiratory failure Pneumoconiosis Interstitial lung disease Obstructive sleep apnea Respiratory alkalosis -Tolerating oxygen mask -High-dose steroids, 40 mg Solu-Medrol IV q. 8 -Broad-spectrum antibiotics -sputum specimen: Pending -Patient at risk for need for long-term mechanical ventilation and difficult liberation from event given severe lung disease -Considerations given for pulmonary embolism, well score 1.5 secondary to heart rate, this is low risk -Venous duplex of bilateral lower extremities: Negative Pleural effusion -Performed by Dr. Heller today -No postprocedural pneumothorax -Okay to proceed with chemical prophylaxis for VTE CV: Elevated troponin: Downtrending -Reviewed cardiology consultation Prolonged QTC on EKG -Avoid QT prolonging medications, I have discontinued azithromycin and started doxycycline Fluids/Renal: Acute kidney injury: No significant improvement in creatinine -Renal ultrasound largely unremarkable -Anti-GBM pending given possible ILD and acute kidney injury -Urine eosinophils pending -Fractional excretion of urea 66.13%, more consistent with acute tubular necrosis -May benefit from nephrology consultation ID: Possible pneumonic process -Blood cultures, sputum culture pending -Continue IV vancomycin, Zosyn -Converted azithromycin to doxycycline secondary to prolonged QTC -Fungal blood culture and 1 3 beta glucan pending -MRSA nasal swab negative -Pleural fluid cytology and culture pending GI/Nutrition: Regular diet Hypoalbuminemia mild Heme: Heparin 5000 3 times daily for DVT prophylaxis Endocrine: ICU hyperglycemia protocol Vascular access: Peripheral IVs Code Status: Full code Patient has been consented for endotracheal intubation, central line, arterial line, bronchoscopy, thoracentesis, tube thoracostomy, blood transfusion Patient was discussed on multidisciplinary rounds, I also discussed this with Dr. Mackay, patient is stable for downgrade to telemetry status. Data Medications: Current Inpatient Medications Medications (Trade) Dose Ordered Sig/Gail Route Start Time Stop Time Status Last Admin Dose Admin Aspirin (Ecotrin Tab) 81 mg HS PO 08/07/17 21:00 09/06/17 20:59 08/07/17 21:15 81 MG Pregabalin (Lyrica Cap) 150 mg DAILY PO 08/08/17 09:00 09/07/17 08:59 08/08/17 08:15 150 MG Pantoprazole Sodium (Protonix Tab) 40 mg QAM PO 08/08/17 09:00 09/07/17 08:59 08/08/17 08:13 40 MG Acetaminophen (Tylenol Tab) 650 mg Q4H PRN PO 08/07/17 14:15 09/06/17 14:14 Lorazepam (Ativan Inj) 0.5 mg Q4H PRN IV 08/07/17 14:15 09/06/17 14:14 Al Hydrox/Mg Hydrox/Simethicone (Maalox Max Susp) 15 ml Q4H PRN PO 08/07/17 14:15 09/06/17 14:14 Magnesium Hydroxide (Milk Of Magnesia Susp) 30 ml Q12H PRN PO 08/07/17 14:15 09/06/17 14:14 Ondansetron HCl (Zofran Inj) 4 mg Q6H PRN IV 08/07/17 14:15 09/06/17 14:14 Morphine Sulfate (MoRPHine SULFATE INJ) 2 mg Q2H PRN IV 08/07/17 14:15 08/21/17 14:14 Miscellaneous Information (Icu Protocol For Hyperglycemia) 1 ea PRN PRN N/A 08/07/17 14:15 08/09/17 14:14 Piperacillin Sod/ Tazobactam Sod 4.5 gm/Dextrose 120 ml @ 30 mls/hr Q8H IV 08/07/17 16:00 08/14/17 15:59 08/08/17 08:12 30 MLS/HR Miscellaneous Information (Consult) 1 ea UD PRN N/A 08/07/17 14:30 09/06/17 14:29 Miscellaneous Information (Consult) 1 ea UD PRN N/A 08/07/17 14:30 09/06/17 14:29 Albuterol/ Ipratropium (Duoneb) 3 ml Q6R INH 08/07/17 15:00 09/06/17 14:59 08/08/17 14:02 3 ML Albuterol Sulfate (Ventolin 0.083% 2.5MG/3ML Neb) 2.5 mg Q4R PRN INH 08/07/17 14:45 09/06/17 14:44 Atorvastatin Calcium (Lipitor Tab) 40 mg QAM PO 08/08/17 09:00 09/07/17 08:59 08/08/17 08:13 40 MG Potassium Chloride (Klor-Con Tab) 20 meq QAM PO 08/08/17 09:00 09/07/17 08:59 08/08/17 08:13 20 MEQ Lorazepam 0.5 mg/ Syringe 1 ml @ 1 mls/min Q4H PRN IV 08/07/17 16:00 09/06/17 15:59 Vancomycin HCl 1250 mg/Sodium Chloride 275 ml @ 125 mls/hr Q16H IV 08/08/17 08:00 08/14/17 23:59 08/08/17 08:12 125 MLS/HR Doxycycline Hyclate 100 mg/ Dextrose 110 ml @ 50 mls/hr BID IV 08/07/17 21:00 08/14/17 20:59 08/08/17 08:12 50 MLS/HR Methylprednisolone Sodium Succinate 40 mg/Syringe 0.64 ml @ 1.5 mls/min Q8H IV 08/08/17 00:00 09/07/17 00:00 08/08/17 08:12 1.5 MLS/MIN Magnesium Oxide (Mag-Ox Tab) 400 mg QPM PO 08/07/17 21:00 09/06/17 20:59 08/07/17 21:15 400 MG Heparin Sodium (Porcine) (Heparin Sq 5000 Unit/0.5ml) 5,000 unit Q8@0000,0800,1600 SQ 08/08/17 15:00 09/07/17 14:59 I & O: 24-Hour Column 08/09/17 08:00 Intake Total 917 ml Output Total 700 ml Balance 217 ml Vital Signs: Date Time Temp Pulse Resp B/P (MAP) Pulse Ox O2 Delivery O2 Flow Rate FiO2 08/08/17 14:02 66 20 94 Nasal Cannula 40.0 60 5/16/18 14:00 66 18 101/62 (75) 95 High Flow Oxygen 08/08/17 12:00 94 High Flow Oxygen 40.0 60 08/08/17 12:00 36.5 87 21 99/52 (68) 94 High Flow Oxygen 40.0 60 08/08/17 11:21 70 20 130/47 (74) 94 High Flow Oxygen 40.0 60 08/08/17 10:34 85/54 (64) 08/08/17 10:00 91 20 94 High Flow Oxygen 40.0 60 08/08/17 08:00 High Flow Oxygen 40.0 60 08/08/17 08:00 36.5 88 18 128/54 (78) 90 High Flow Oxygen 40.0 60 08/08/17 07:01 53 20 94 Nasal Cannula 40.0 60 08/08/17 06:01 58 15 97/55 (69) 94 High Flow Oxygen 40.0 60 08/08/17 05:01 49 14 104/52 (69) 93 High Flow Oxygen 40.0 60 08/08/17 04:01 66 17 105/62 (76) 94 High Flow Oxygen 40.0 60 08/08/17 04:00 92 High Flow Oxygen 40.0 60 08/08/17 03:01 70 20 117/61 (79) 94 High Flow Oxygen 40.0 60 08/08/17 02:17 70 22 93 Nasal Cannula 40.0 60 08/08/17 02:01 59 16 114/64 (81) 94 High Flow Oxygen 40.0 60 08/08/17 01:01 55 20 108/53 (71) 94 High Flow Oxygen 40.0 60 08/08/17 00:01 36.6 59 18 93/58 (70) 93 High Flow Oxygen 40.0 60 08/07/17 23:59 92 High Flow Oxygen 40.0 60 08/07/17 23:01 57 16 101/60 (74) 92 High Flow Oxygen 40.0 60 08/07/17 22:01 67 20 100/58 (72) 93 High Flow Oxygen 40.0 60 08/07/17 21:01 71 23 116/59 (78) 92 High Flow Oxygen 40.0 60 08/07/17 20:46 71 20 93 Nasal Cannula 40.0 60 5/15/18 20:00 36.8 68 20 116/66 (83) 95 High Flow Oxygen 40.0 60 08/07/17 17:30 66 20 91 High Flow Oxygen 40.0 60 08/07/17 17:15 63 18 92 08/07/17 17:01 68 18 118/64 (82) 92 High Flow Oxygen 40.0 60 08/07/17 17:00 68 23 91 08/07/17 16:45 74 19 94 08/07/17 16:30 78 23 94 08/07/17 16:15 70 26 94 High Flow Oxygen 40.0 60 08/07/17 16:01 66 17 124/73 (90) 93 08/07/17 16:00 76 22 94 08/07/17 15:50 95 Non-Rebreather 15.0 100 08/07/17 15:49 36.7 72 23 125/77 (93) 94 Non-Rebreather 15.0 Laboratory Results: Last 24 Hours Test 08/07/17 21:05 08/08/17 00:01 08/08/17 01:44 08/08/17 04:00 Activated Partial Thromboplast Time 51.7 SECONDS Partial Thromboplastin Ratio 2.0 Sodium Level 135 mmol/L 136 mmol/L Potassium Level 3.9 mmol/L 4.0 mmol/L Chloride Level 100 mmol/L 104 mmol/L Carbon Dioxide Level 26 mmol/L 25 mmol/L Anion Gap 8.0 mmol/L 7.0 mmol/L Blood Urea Nitrogen 26 mg/dl 27 mg/dl Creatinine 1.83 mg/dl 1.71 mg/dl Est Creatinine Clear Calc Drug Dose 43.1 ml/min 46.2 ml/min Estimated GFR () 43.3 47.0 Estimated GFR (Non- 37.3 40.5 BUN/Creatinine Ratio 14.0 16.1 Random Glucose 191 mg/dl 159 mg/dl Calcium Level 8.8 mg/dl 8.4 mg/dl Troponin I 0.748 ng/ml 0.686 ng/ml Bedside Glucose 155 mg/dl White Blood Count 5.32 K/uL Red Blood Count 4.76 M/uL Hemoglobin 14.4 g/dL Hematocrit 42.1 % Mean Corpuscular Volume 88.4 fL Mean Corpuscular Hemoglobin 30.3 pg Mean Corpuscular Hemoglobin Concent 34.2 g/dl Platelet Count 235 K/uL Mean Platelet Volume 10.0 fL Neutrophils (%) (Auto) 87.4 % Lymphocytes (%) (Auto) 9.8 % Monocytes (%) (Auto) 2.6 % Eosinophils (%) (Auto) 0.0 % Basophils (%) (Auto) 0.0 % Neutrophils # (Auto) 4.65 K/uL Lymphocytes # (Auto) 0.52 K/uL Monocytes # (Auto) 0.14 K/uL Eosinophils # (Auto) 0.00 K/uL Basophils # (Auto) 0.00 K/uL RDW Standard Deviation 45.2 fL RDW Coefficient of Variation 14.0 % Immature Granulocyte % (Auto) 0.2 % Immature Granulocyte # (Auto) 0.01 K/uL Magnesium Level 2.0 mg/dl Test 08/08/17 10:20 08/08/17 10:41 Pleural Fluid Source RIGHT LUNG Pleural Fluid Color YELLOW Pleural Fluid Appearance CLEAR Pleural Fluid WBC 352 /uL Pleural Fluid RBC < 3000 /uL Pleural Fluid pH 7.43 Pleural Fluid Polynuclear WBCs % 18.5 % Pleural Fluid Mononuclear WBCs % 81.5 % Pleural Fluid Total Protein 4.5 g/dl Pleural Fluid LDH 168 IU Pleural Fluid Glucose 159 mg/dl Pleural Fluid Amylase 8 U/L
[2017-08-08] MEDS: MAGNESIUM OXIDE 400 MG TAB PO SCH (20:22)
[2017-08-08] MEDS: ASPIRIN 81 MG ECTAB PO SCH (20:22)
[2017-08-08] MEDS: PREGABALIN 150 MG CAP PO SCH (21:11)
[2017-08-08] MEDS: ALBUTEROL 0.083% NEBU SOLN 3 ML VIAL INH PRN (22:18)
[2017-08-09] VITALS (11 sets, daily range): BP systolic 103–128; BP diastolic 54–72; PULSE 58–89; TEMP 36.4–36.8; O2SAT 89–96
[2017-08-09] MEDS: HEPARIN SOD 5000 UNIT/0.5 ML CARP SQ SCH ×3 (00:02→16:41)
[2017-08-09] MEDS: ALBUT/IPRATROP 3MG/0.5MG NEB 3 ML VIAL INH SCH ×4 (01:47→18:59)
[2017-08-09 06:19] LABS: HEMATOCRIT 43.2 % (42-52); HEMOGLOBIN 14.8 g/dL (14.0-18.0); IG# 0.03 K/uL (0.00-0.02); LYMPH % 4.8 %; LYMPH ABS # 0.59 K/uL (1.2-3.4); MEAN CELL VOLUME 89.4 fL (80-100); MEAN CORPUSCULAR HEMOGLOBIN 30.6 pg (25-34); MEAN CORPUSCULAR HGB CONC 34.3 g/dl (32-36); MEAN PLATELET VOLUME 9.8 fL (7.4-10.4); MONO % 3.7 %; MONO ABS # 0.45 K/uL (0.11-0.59); NEUT % 91.3 %; NEUT ABS # 11.23 K/uL (1.4-6.5); PLATELET COUNT 271 K/uL (130-400); RED CELL DISTRIBUTION WIDTH CV 14.2 % (11.5-14.5); RED CELL DISTRIBUTION WIDTH SD 46.5 fL (36.4-46.3)
[2017-08-09 06:33] LABS: PTT PATIENT 26.8 SECONDS (21.0-31.0)
[2017-08-09 06:52] LABS: CALCIUM 8.7 mg/dl (8.5-10.1); CREATININE 1.59 mg/dl (0.60-1.40); POTASSIUM 3.8 mmol/L (3.5-5.1)
[2017-08-09] MEDS: PIPERACILL/TAZOBAC IV 4.5 GM in DEXTROSE 5% 100ML 100 ML IV SCH ×2 (07:41→16:39)
[2017-08-09] MEDS: PANTOprazole SOD 40 MG TAB PO SCH (07:42)
[2017-08-09] MEDS: ATORVASTATIN 40 MG TAB PO SCH (07:42)
[2017-08-09] MEDS: PREGABALIN 150 MG CAP PO SCH ×2 (07:50→21:32)
[2017-08-09] MEDS: DOXYCYCLINE IV 100 MG in DEXTROSE 5% 100ML 100 ML IV SCH ×2 (09:19→20:39)
[2017-08-09] MEDS: METHYLPREDNISOLONE IV 40 MG in SYRINGE 0 ML IV SCH ×2 (09:26→16:40)
[2017-08-09] MEDS: POTASSIUM CHLORIDE 20 MEQ TABCR PO SCH (09:26)
--- NOTE | 2017-08-09 11:26 | Progress Note ---
Subjective Date of Service: August 09, 2017. Subjective Pt evaluation today including: conversation w/ patient, physical exam, lab review, review of inpatient medication list Pain: no pain today PO Intake: adequate, eating a lot Voiding: no voiding problems patient says his breathing is slightly better compared to yesterday no cough, gets short of breath walking to the toilet no chest pain or pressure eating all of his meals reviewed labs, Cr down to 1.59, electrolytes stable, K is 3.8 mild leukocytosis due to steroids send out labs still pending reviewed consultations from cardiology, pulmonology Problem List Medical Problems: (1) Hypoxemia Status: Acute (2) Pleural effusion, right Status: Acute (3) Pneumoconiosis Status: Acute (4) Pneumonia Status: Acute Review of Systems Constitutional: + weakness, + fatigue Respiratory: + shortness of breath, + dyspnea on exertion All Other Systems: Reviewed and Negative Medications Current Inpatient Medications Medications (Trade) Dose Ordered Sig/Gail Route Start Time Stop Time Status Last Admin Dose Admin Aspirin (Ecotrin Tab) 81 mg HS PO 08/07/17 21:00 09/06/17 20:59 08/08/17 20:22 81 MG Pantoprazole Sodium (Protonix Tab) 40 mg QAM PO 08/08/17 09:00 09/07/17 08:59 08/09/17 07:42 40 MG Acetaminophen (Tylenol Tab) 650 mg Q4H PRN PO 08/07/17 14:15 09/06/17 14:14 Lorazepam (Ativan Inj) 0.5 mg Q4H PRN IV 08/07/17 14:15 09/06/17 14:14 Al Hydrox/Mg Hydrox/Simethicone (Maalox Max Susp) 15 ml Q4H PRN PO 08/07/17 14:15 09/06/17 14:14 Magnesium Hydroxide (Milk Of Magnesia Susp) 30 ml Q12H PRN PO 08/07/17 14:15 09/06/17 14:14 Ondansetron HCl (Zofran Inj) 4 mg Q6H PRN IV 08/07/17 14:15 09/06/17 14:14 Morphine Sulfate (MoRPHine SULFATE INJ) 2 mg Q2H PRN IV 08/07/17 14:15 08/21/17 14:14 Miscellaneous Information (Icu Protocol For Hyperglycemia) 1 ea PRN PRN N/A 08/07/17 14:15 08/09/17 14:14 Piperacillin Sod/ Tazobactam Sod 4.5 gm/Dextrose 120 ml @ 30 mls/hr Q8H IV 08/07/17 16:00 08/14/17 15:59 08/09/17 07:41 30 MLS/HR Miscellaneous Information (Consult) 1 ea UD PRN N/A 08/07/17 14:30 09/06/17 14:29 Miscellaneous Information (Consult) 1 ea UD PRN N/A 08/07/17 14:30 09/06/17 14:29 Albuterol/ Ipratropium (Duoneb) 3 ml Q6R INH 08/07/17 15:00 09/06/17 14:59 08/09/17 07:05 3 ML Albuterol Sulfate (Ventolin 0.083% 2.5MG/3ML Neb) 2.5 mg Q4R PRN INH 08/07/17 14:45 09/06/17 14:44 08/08/17 22:18 2.5 MG Atorvastatin Calcium (Lipitor Tab) 40 mg QAM PO 08/08/17 09:00 09/07/17 08:59 08/09/17 07:42 40 MG Potassium Chloride (Klor-Con Tab) 20 meq QAM PO 08/08/17 09:00 09/07/17 08:59 08/09/17 09:26 20 MEQ Lorazepam 0.5 mg/ Syringe 1 ml @ 1 mls/min Q4H PRN IV 08/07/17 16:00 09/06/17 15:59 Vancomycin HCl 1250 mg/Sodium Chloride 275 ml @ 125 mls/hr Q16H IV 08/08/17 08:00 08/14/17 23:59 08/08/17 23:59 125 MLS/HR Doxycycline Hyclate 100 mg/ Dextrose 110 ml @ 50 mls/hr BID IV 08/07/17 21:00 08/14/17 20:59 08/09/17 09:19 50 MLS/HR Methylprednisolone Sodium Succinate 40 mg/Syringe 0.64 ml @ 1.5 mls/min Q8H IV 08/08/17 00:00 09/07/17 00:00 08/09/17 09:26 1.5 MLS/MIN Magnesium Oxide (Mag-Ox Tab) 400 mg QPM PO 08/07/17 21:00 09/06/17 20:59 08/08/17 20:22 400 MG Heparin Sodium (Porcine) (Heparin Sq 5000 Unit/0.5ml) 5,000 unit Q8@0000,0800,1600 SQ 08/08/17 15:00 09/07/17 14:59 08/09/17 07:39 5,000 UNIT Pregabalin (Lyrica Cap) 150 mg BID PO 08/08/17 21:00 09/07/17 08:59 08/09/17 07:50 150 MG Objective Vital Signs Date Time Temp Pulse Resp B/P (MAP) Pulse Ox O2 Delivery O2 Flow Rate FiO2 08/09/17 08:00 High Flow Oxygen 25.0 50 08/09/17 07:05 64 18 94 Nasal Cannula 25.0 50 08/09/17 06:50 36.6 89 18 107/54 (71) 90 08/09/17 04:00 High Flow Oxygen 25.0 50 08/09/17 03:53 36.8 65 16 103/72 (82) 96 08/09/17 01:47 58 18 95 Nasal Cannula 25.0 50 08/09/17 00:18 36.8 75 18 111/55 (73) 92 08/08/17 23:59 High Flow Oxygen 25.0 50 08/08/17 22:18 94 18 93 Mask 11.0 08/08/17 20:15 36.8 91 24 111/59 (76) 89 Oxymask 11.0 08/08/17 20:00 Oxymask 11.0 Mask 08/08/17 19:28 91 18 91 Mask 11.0 08/08/17 16:00 36.7 66 18 123/65 (84) 89 Oxymask 13.0 08/08/17 16:00 89 Oxymask 13.0 08/08/17 14:02 66 20 94 Nasal Cannula 40.0 60 08/08/17 14:00 66 18 101/62 (75) 95 High Flow Oxygen 08/08/17 12:00 94 High Flow Oxygen 40.0 60 08/08/17 12:00 36.5 87 21 99/52 (68) 94 High Flow Oxygen 40.0 60 08/08/17 11:21 70 20 130/47 (74) 94 High Flow Oxygen 40.0 60 Physical Exam General Appearance: no apparent distress, + obese Eyes: normal inspection, EOMI, sclerae normal ENT: normal ENT inspection, hearing grossly normal, pharynx normal Neck: supple, no adenopathy, no JVD, trachea midline Respiratory/Chest: chest non-tender, no respiratory distress, no accessory muscle use, + decreased breath sounds, + crackles Cardiovascular: regular rate, rhythm, no edema, no gallop, no JVD, no murmur Abdomen: normal bowel sounds, non tender, soft, no organomegaly Extremities: normal range of motion, non-tender, normal inspection, no pedal edema, no calf tenderness, pelvis stable 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iatric: 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-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 as tested, no motor/sensory deficits, alert, normal mood/affect, oriented x 3 Skin: normal color, warm/dry, no rash Laboratory Results Last 24 Hours Test 08/09/17 05:59 White Blood Count 12.30 K/uL Red Blood Count 4.83 M/uL Hemoglobin 14.8 g/dL Hematocrit 43.2 % Mean Corpuscular Volume 89.4 fL Mean Corpuscular Hemoglobin 30.6 pg Mean Corpuscular Hemoglobin Concent 34.3 g/dl Platelet Count 271 K/uL Mean Platelet Volume 9.8 fL Neutrophils (%) (Auto) 91.3 % Lymphocytes (%) (Auto) 4.8 % Monocytes (%) (Auto) 3.7 % Eosinophils (%) (Auto) 0.0 % Basophils (%) (Auto) 0.0 % Neutrophils # (Auto) 11.23 K/uL Lymphocytes # (Auto) 0.59 K/uL Monocytes # (Auto) 0.45 K/uL Eosinophils # (Auto) 0.00 K/uL Basophils # (Auto) 0.00 K/uL RDW Standard Deviation 46.5 fL RDW Coefficient of Variation 14.2 % Immature Granulocyte % (Auto) 0.2 % Immature Granulocyte # (Auto) 0.03 K/uL Activated Partial Thromboplast Time 26.8 SECONDS Partial Thromboplastin Ratio 1.0 Sodium Level 138 mmol/L Potassium Level 3.8 mmol/L Chloride Level 106 mmol/L Carbon Dioxide Level 21 mmol/L Anion Gap 11.0 mmol/L Blood Urea Nitrogen 30 mg/dl Creatinine 1.59 mg/dl Est Creatinine Clear Calc Drug Dose 51.7 ml/min Estimated GFR () 51.3 Estimated GFR (Non- 44.3 BUN/Creatinine Ratio 18.7 Random Glucose 123 mg/dl Calcium Level 8.7 mg/dl Magnesium Level 2.2 mg/dl Assessment and Plan 66 y/o M Hx ILD, 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 he pt states that he has been progressively SOB over the past 4 weeks. His oxygen demand has steadily increased and he cannot take more than a few steps without becoming excessively SOB. He underwent a CT chest the prior day which revealed consolidations in the right upper lobe and superior segment of the right lower lobe concerning for pneumonia, although progressive massive fibrosis and an underlying mass could not be excluded as alternative diagnoses. His SOB acutely worsened this AM and his states she was unable to keep his oxygen saturation above the 70s and presented to the hospital therefore. He is requiring 10L 02 at the time of admission. Initial labs are notable for an elevated troponin and mild CARINE. An ABG shows hypoxia and alkalosis. A CXR mentions a R pleural effusion, however, this may be a consolidation if compared to the CT one day earlier. - Acute respiratory failure with hypoxia on chronic respiratory failure, had increased O2 requirements, increased work of breathing stable today on 50% FiO2 at 25L rate, no distress at rest, increased work of breathing on exertion due to COPD, pneumoconiosis, pneumonia, pleural effusion treat above conditions, titrate oxygen as needed will try to titrate off of high flow NC as tolerated - Right sided pleural effusion: thoracentesis on 08/08, 900cc out appears exudative on initial analysis await cultures and cytology - still pending today has FDG avid right sided lung nodule that patient has declined EBUS as outpatient - Multifocal pneumonia: treat with Zosyn, Vancomycin and Doxycycline Zithromax stopped due to QT prolongation continue Solu Medrol 40mg q8 - Type II NSTEMI due to demand ischemia manage medically echo shows preserved EF per cardiology, no further ischemic work up at this time no chest pain or pressure today - Acute kidney injury likely prerenal with infection, dehydration Cr down to 1.59 this morning, still up from baseline of 1.2-1.3 continue to follow anti-GBM sent out, urine eosinophils ordered hold on nephrology consult at this time as long as Cr improves eating and drinking well, no need for fluids, holding diuretics for now but will resume once Cr recovers - Pneumoconiosis: palliative care consulted - Right lung nodule: FDG avid on PET scan in the past has refused EBUS in the past certainly not a candidate for bronchoscopy given current respiratory status will see if pleural fluid analysis provides a diagnosis - still pending Full code - heparin prophylaxis keep on tele today, PT/OT consults
--- NOTE | 2017-08-09 15:03 | PULMONARY PROGRESS NOTE ---
DATE: 08/09/2017 SUBJECTIVE: The patient and his concurred that he appears to be breathing more easily than he did on admission, and I believe the thoracentesis was helpful to alleviate some of the chest pressure and respiratory difficulties. He still has fairly significant oxygen requirements to maintain his saturation close to 1 L of fluid was obtained which appeared exudative, suspect a parapneumonic effusion. CURRENT VITAL SIGNS: Temperature 36.7, pulse 84 and regular, respiratory rate 20, blood pressure 108/60. The patient is currently on OptiSow 25% at 50% FiO2. Cytology is pending on the pleural fluid. Chest x-ray post thoracentesis showed no pneumothorax, but consolidation of the right lung is unchanged and still appears to represent a consolidated lung from bronchopneumonia. PLAN: Continue current therapy. We will repeat chest x-ray tomorrow and see if we can titrate down patient's O2 supplementation as the current level of oxygen supplementation would be prohibitive for discharge.
[2017-08-09] MEDS ORDERED: VANCOMYCIN TROUGH ONE (15:30)
[2017-08-09] MEDS: VANCOMYCIN IV 1,250 MG in SODIUM CHLORIDE 0.9% 250ML 250 ML IV SCH (16:40)
[2017-08-09] MEDS: MAGNESIUM OXIDE 400 MG TAB PO SCH (21:32)
[2017-08-09] MEDS: ASPIRIN 81 MG ECTAB PO SCH (21:32)
[2017-08-10] VITALS (13 sets, daily range): BP systolic 117–152; BP diastolic 59–72; PULSE 50–88; TEMP 36.5–36.9; O2SAT 85–95
[2017-08-10] MEDS: PIPERACILL/TAZOBAC IV 4.5 GM in DEXTROSE 5% 100ML 100 ML IV SCH ×3 (00:26→16:09)
[2017-08-10] MEDS: HEPARIN SOD 5000 UNIT/0.5 ML CARP SQ SCH ×3 (00:26→16:07)
[2017-08-10] MEDS: METHYLPREDNISOLONE IV 40 MG in SYRINGE 0 ML IV SCH ×3 (00:26→16:08)
[2017-08-10] MEDS: ALBUT/IPRATROP 3MG/0.5MG NEB 3 ML VIAL INH SCH ×4 (02:45→18:53)
[2017-08-10 06:45] LABS: HEMOGLOBIN 14.6 g/dL (14.0-18.0); IG# 0.01 K/uL (0.00-0.02); LYMPH % 6.4 %; LYMPH ABS # 0.57 K/uL (1.2-3.4); MEAN CELL VOLUME 90.2 fL (80-100); MEAN CORPUSCULAR HEMOGLOBIN 29.9 pg (25-34); MEAN CORPUSCULAR HGB CONC 33.2 g/dl (32-36); MEAN PLATELET VOLUME 10.1 fL (7.4-10.4); MONO % 4.2 %; MONO ABS # 0.38 K/uL (0.11-0.59); NEUT % 89.3 %; PLATELET COUNT 265 K/uL (130-400); RED CELL DISTRIBUTION WIDTH CV 14.4 % (11.5-14.5); RED CELL DISTRIBUTION WIDTH SD 46.9 fL (36.4-46.3); WHITE BLOOD COUNT 8.96 K/uL (4.8-10.8)
[2017-08-10 06:59] LABS: PTT PATIENT 25.5 SECONDS (21.0-31.0)
--- NOTE | 2017-08-10 07:00 | DIAGNOSTIC IMAGING REPORT ---
CHEST ONE VIEW PORTABLE HISTORY: 66 years-old Male pneumonia follow-up study in a patient with pneumonia COMPARISON: Chest radiograph 08/08/2017, 08/07/2017, chest CT 08/06/2017 TECHNIQUE: Portable AP view of the chest FINDINGS: Cardiac silhouette is mildly enlarged. Severe bullous emphysematous disease with patchy multifocal bilateral alveolar opacities redemonstrated, most pronounced within the right upper lobe. Trace right pleural effusion. Pattern of disease appears unchanged from prior. Degenerative changes of the shoulders and spine. IMPRESSION: 1. Advanced bullous emphysematous disease redemonstrated with patchy multifocal bilateral alveolar opacities most pronounced on the right upper lobe compatible with pneumonia, unchanged from comparison. 2. Trace right pleural effusion. 3. Cardiomegaly without overt pulmonary edema. The above report was generated using voice recognition software. It may contain grammatical, syntax or spelling errors. Electronically signed by: Arley Stallings M.D. 08/10/2017 6:58 AM Dictated Date/Time: 08/10/2017 6:56 AM
[2017-08-10] MEDS: VANCOMYCIN IV 1,250 MG in SODIUM CHLORIDE 0.9% 250ML 250 ML IV SCH ×2 (07:30→22:12)
[2017-08-10] MEDS: ATORVASTATIN 40 MG TAB PO SCH (07:30)
[2017-08-10] MEDS: POTASSIUM CHLORIDE 20 MEQ TABCR PO SCH (07:31)
[2017-08-10] MEDS: PANTOprazole SOD 40 MG TAB PO SCH (07:31)
[2017-08-10] MEDS: PREGABALIN 150 MG CAP PO SCH ×2 (07:34→20:21)
[2017-08-10 07:59] LABS: CALCIUM 8.9 mg/dl (8.5-10.1); CREATININE 1.4 mg/dl (0.60-1.40); POTASSIUM 4.1 mmol/L (3.5-5.1)
[2017-08-10] MEDS: DOXYCYCLINE IV 100 MG in DEXTROSE 5% 100ML 100 ML IV SCH ×2 (08:58→20:16)
--- NOTE | 2017-08-10 11:35 | Pharmacy Progress Note ---
Pharmacy Abx Dose Short Note Date of Service August 10, 2017. Assessment & Plan Assessment * 66 year old male receiving VANCOMCYIN, ZOSYN and DOXYCYCLINE IV for treatment of multifocal pneumonia / parapneumonic effusion / COPD exacerbation in the setting of interstitial lung disease * Day # 4 of antimicrobial therapy * Currently requiring HiFlow 45% FiO2 (home O2 requirement 2L NC at rest, 5L NC w/ activity * afebrile and VSS; no leukocytosis noted on labs * Micro remains negative: negative MRSA nasal swab, normal romelia recovered in expectorated sputum cx, no growth to date in pleural fluid cx * Renal fxn continues to improve slowly each day. SCr down to 1.4 today ( baseline ~1.3) Plan Vancomycin * Trough level of 12.8 mcg/mL is subtherapeutic. However result was drawn after only 2 maintenance doses. Level may continue to rise w/ repeat dosing. With improving renal fxn a small dose increase is warranted. * Change to 1250 mg IV every 14 hours * Goal trough level for pulm infxn : 15 to 20 mcg/mL * Trough level ordered for: 08/12/17 w/ 3rd dose of new regimen Zosyn * eCrCl > 20cc/min, cont 4.5gm ext-infusion Q 8 hours. Pharmacy will continue to follow and will adjust dose/frequency as necessary. Thank you.
--- NOTE | 2017-08-10 12:19 | PULMONARY PROGRESS NOTE ---
DATE: 08/10/2017 TIME: 11:30 a.m. SUBJECTIVE: The patient feels a little less short of breath. He did wear his BiPAP last night and he thought he felt better. He was able to maintain his oxygenation according to nursing staff. The patient has been on BiPAP at home for sleep apnea. He developed complex sleep apnea when he was treated. His BiPAP pressures at home were 20/10 with Bi-Flex 2 and a backup rate of 12. About a month ago, we had requested [facility] to change the BiPAP pressure to 20/12 because of a residual apnea hypopnea index of above 11. According to the patient, he never made that change. This morning, he has been able to maintain oxygenation just on a nasal cannula. He still is definitely hypoxic. He is not coughing up any significant phlegm. He is winded with any movement at all. OBJECTIVE: GENERAL: The patient looked somewhat short of breath at rest. HEENT: Pupils were reactive. Mouth was unremarkable. VITAL SIGNS: Temperature was 36.7. He has not had any significant fever since admission. Heart rate is 100 beats per minute. The rhythm was regular. Blood pressure 117/60. CHEST: Auscultation of the lung mcwilliams reveals rales which are coarse and bilateral. Some wheezing was heard. In the process of sitting, the patient forward for just a minute or two and auscultating his chest posteriorly, his saturation went from 91% on 6 liter nasal down to 84%. Respiratory rate was 20. ABDOMEN: Soft and nontender. LABORATORY DATA: Pleural fluid analysis shows the pleural fluid protein elevated at 4.5. This would be suggestive for an exudate. The serum protein was 7.8. Pleural fluid LDH was 168. I did not see a serum LDH. The pleural fluid glucose was 159. White count today is 8.96. Hemoglobin 14.6. Platelets 265,000. ASSESSMENT: 1. Acute respiratory failure with hypoxia. 2. Right upper lobe consolidation. 3. CWP. 4. Chronic obstructive pulmonary disease. 5. Obstructive sleep apnea with complex sleep apnea. 6. Exudative right pleural effusion. COMMENTS AND RECOMMENDATIONS: The patient should keep doing his BiPAP at night. He did reasonably well with that. His improvement in oxygenation would suggest that he is clinically somewhat improved. We don't really know if the extensive infiltrate in the upper lobe is infection versus neoplastic. He is too hypoxic and short of breath to have any diagnostic procedures. In light of that, would continue with the treatment with triple antibiotic therapy as well as steroids. Prognosis is guarded.
--- NOTE | 2017-08-10 15:21 | Progress Note ---
Subjective Date of Service: August 10, 2017. Subjective Pt evaluation today including: conversation w/ patient, physical exam, lab review, conversation w/ consultant nurse, review of inpatient medication list Pain: no pain PO Intake: adequate Voiding: no voiding problems patient feeling a little better, slept with BIPAP last night on normal nasal canula today, 5L desaturates quickly with any movement discussed with Dr. Funez reviewed labs, Cr down to 1.4 Problem List Medical Problems: (1) Hypoxemia Status: Acute (2) Pleural effusion, right Status: Acute (3) Pneumoconiosis Status: Acute (4) Pneumonia Status: Acute Review of Systems Constitutional: + weakness, + fatigue Respiratory: + cough, + shortness of breath, + dyspnea on exertion All Other Systems: Reviewed and Negative Medications Current Inpatient Medications Medications (Trade) Dose Ordered Sig/Gail Route Start Time Stop Time Status Last Admin Dose Admin Aspirin (Ecotrin Tab) 81 mg HS PO 08/07/17 21:00 09/06/17 20:59 08/09/17 21:32 81 MG Pantoprazole Sodium (Protonix Tab) 40 mg QAM PO 08/08/17 09:00 09/07/17 08:59 08/10/17 07:31 40 MG Acetaminophen (Tylenol Tab) 650 mg Q4H PRN PO 08/07/17 14:15 09/06/17 14:14 Lorazepam (Ativan Inj) 0.5 mg Q4H PRN IV 08/07/17 14:15 09/06/17 14:14 Al Hydrox/Mg Hydrox/Simethicone (Maalox Max Susp) 15 ml Q4H PRN PO 08/07/17 14:15 09/06/17 14:14 Magnesium Hydroxide (Milk Of Magnesia Susp) 30 ml Q12H PRN PO 08/07/17 14:15 09/06/17 14:14 Ondansetron HCl (Zofran Inj) 4 mg Q6H PRN IV 08/07/17 14:15 09/06/17 14:14 Morphine Sulfate (MoRPHine SULFATE INJ) 2 mg Q2H PRN IV 08/07/17 14:15 08/21/17 14:14 Piperacillin Sod/ Tazobactam Sod 4.5 gm/Dextrose 120 ml @ 30 mls/hr Q8H IV 08/07/17 16:00 08/14/17 15:59 08/10/17 07:30 30 MLS/HR Miscellaneous Information (Consult) 1 ea UD PRN N/A 08/07/17 14:30 09/06/17 14:29 Miscellaneous Information (Consult) 1 ea UD PRN N/A 08/07/17 14:30 09/06/17 14:29 Albuterol/ Ipratropium (Duoneb) 3 ml Q6R INH 08/07/17 15:00 09/06/17 14:59 08/10/17 14:09 3 ML Albuterol Sulfate (Ventolin 0.083% 2.5MG/3ML Neb) 2.5 mg Q4R PRN INH 08/07/17 14:45 09/06/17 14:44 08/08/17 22:18 2.5 MG Atorvastatin Calcium (Lipitor Tab) 40 mg QAM PO 08/08/17 09:00 09/07/17 08:59 08/10/17 07:30 40 MG Potassium Chloride (Klor-Con Tab) 20 meq QAM PO 08/08/17 09:00 09/07/17 08:59 08/10/17 07:31 20 MEQ Lorazepam 0.5 mg/ Syringe 1 ml @ 1 mls/min Q4H PRN IV 08/07/17 16:00 09/06/17 15:59 Doxycycline Hyclate 100 mg/ Dextrose 110 ml @ 50 mls/hr BID IV 08/07/17 21:00 08/14/17 20:59 08/10/17 08:58 50 MLS/HR Methylprednisolone Sodium Succinate 40 mg/Syringe 0.64 ml @ 1.5 mls/min Q8H IV 08/08/17 00:00 09/07/17 00:00 08/10/17 07:30 1.5 MLS/MIN Magnesium Oxide (Mag-Ox Tab) 400 mg QPM PO 08/07/17 21:00 09/06/17 20:59 08/09/17 21:32 400 MG Heparin Sodium (Porcine) (Heparin Sq 5000 Unit/0.5ml) 5,000 unit Q8@0000,0800,1600 SQ 08/08/17 15:00 09/07/17 14:59 08/10/17 07:35 5,000 UNIT Pregabalin (Lyrica Cap) 150 mg BID PO 08/08/17 21:00 09/07/17 08:59 08/10/17 07:34 150 MG Vancomycin HCl 1250 mg/Sodium Chloride 275 ml @ 125 mls/hr Q14H IV 08/10/17 22:00 08/14/17 23:59 Objective Vital Signs Date Time Temp Pulse Resp B/P (MAP) Pulse Ox O2 Delivery O2 Flow Rate FiO2 08/10/17 14:10 88 24 85 Nasal Cannula 6.0 08/10/17 12:00 36.6 80 20 131/59 (83) 90 Nasal Cannula 5.5 08/10/17 12:00 Nasal Cannula 6.0 08/10/17 08:00 High Flow Oxygen 30.0 45 08/10/17 07:13 50 16 95 Nasal Cannula 40.0 50 08/10/17 07:01 36.7 61 18 117/60 (79) 95 6.0 08/10/17 04:00 93 BiPAP 6.0 08/10/17 03:35 36.5 53 16 123/64 (83) 93 6.0 08/10/17 00:58 36.6 80 18 132/69 (90) 95 08/10/17 00:00 95 BiPAP 08/09/17 20:00 91 Humidified Oxygen 30.0 45 08/09/17 19:42 36.4 73 20 117/58 (77) 91 High Flow Oxygen 08/09/17 19:01 73 16 93 Nasal Cannula 30.0 45 08/09/17 16:01 36.8 72 24 128/68 (88) 89 High Flow Oxygen 08/09/17 16:00 High Flow Oxygen 25.0 50 Physical Exam General Appearance: no apparent distress, + obese ENT: normal ENT inspection, hearing grossly normal, pharynx normal Neck: supple, no adenopathy, no JVD, trachea midline Respiratory/Chest: chest non-tender, no respiratory distress, no accessory muscle use, + decreased breath sounds, + crackles Cardiovascular: regular rate, rhythm, no edema, no gallop, no JVD, no murmur Abdomen: normal bowel sounds, non tender, soft, no organomegaly Extremities: normal range of motion, non-tender, normal inspection, no pedal edema, no calf tenderness, pelvis stable 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iatric: storm sash maker II-XII nml as tested, alert, normal mood/affect, oriented x 3, + motor weakness Skin: normal color, warm/dry, no rash Laboratory Results Last 24 Hours Test 08/09/17 15:25 08/10/17 06:17 Vancomycin Level Trough 12.8 mcg/ml White Blood Count 8.96 K/uL Red Blood Count 4.88 M/uL Hemoglobin 14.6 g/dL Hematocrit 44.0 % Mean Corpuscular Volume 90.2 fL Mean Corpuscular Hemoglobin 29.9 pg Mean Corpuscular Hemoglobin Concent 33.2 g/dl Platelet Count 265 K/uL Mean Platelet Volume 10.1 fL Neutrophils (%) (Auto) 89.3 % Lymphocytes (%) (Auto) 6.4 % Monocytes (%) (Auto) 4.2 % Eosinophils (%) (Auto) 0.0 % Basophils (%) (Auto) 0.0 % Neutrophils # (Auto) 8.00 K/uL Lymphocytes # (Auto) 0.57 K/uL Monocytes # (Auto) 0.38 K/uL Eosinophils # (Auto) 0.00 K/uL Basophils # (Auto) 0.00 K/uL RDW Standard Deviation 46.9 fL RDW Coefficient of Variation 14.4 % Immature Granulocyte % (Auto) 0.1 % Immature Granulocyte # (Auto) 0.01 K/uL Activated Partial Thromboplast Time 25.5 SECONDS Partial Thromboplastin Ratio 1.0 Sodium Level 138 mmol/L Potassium Level 4.1 mmol/L Chloride Level 104 mmol/L Carbon Dioxide Level 25 mmol/L Anion Gap 9.0 mmol/L Blood Urea Nitrogen 31 mg/dl Creatinine 1.40 mg/dl Est Creatinine Clear Calc Drug Dose 58.8 ml/min Estimated GFR () 59.8 Estimated GFR (Non- 51.6 BUN/Creatinine Ratio 21.9 Random Glucose 111 mg/dl Calcium Level 8.9 mg/dl Magnesium Level 2.0 mg/dl Assessment and Plan 66 y/o M Hx ILD, 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 he pt states that he has been progressively SOB over the past 4 weeks. His oxygen demand has steadily increased and he cannot take more than a few steps without becoming excessively SOB. He underwent a CT chest the prior day which revealed consolidations in the right upper lobe and superior segment of the right lower lobe concerning for pneumonia, although progressive massive fibrosis and an underlying mass could not be excluded as alternative diagnoses. His SOB acutely worsened this AM and his states she was unable to keep his oxygen saturation above the 70s and presented to the hospital therefore. He is requiring 10L 02 at the time of admission. Initial labs are notable for an elevated troponin and mild CARINE. An ABG shows hypoxia and alkalosis. A CXR mentions a R pleural effusion, however, this may be a consolidation if compared to the CT one day earlier. - Acute respiratory failure with hypoxia on chronic respiratory failure, had increased O2 requirements, increased work of breathing titrated down to 5L NC today, BIPAP at night still not at baseline which is 2-3L NC due to COPD, pneumoconiosis, pneumonia, pleural effusion treat above conditions, titrate oxygen as needed - Right sided pleural effusion: thoracentesis on 08/08, 900cc out appears exudative on initial analysis pathology report still pending pleural fluid cultures show no growth has FDG avid right sided lung nodule that patient has declined EBUS as outpatient, not currently a candidate for any type of bronchoscopy - Multifocal pneumonia: treat with Zosyn, Vancomycin and Doxycycline, day 3 Zithromax stopped due to QT prolongation continue Solu Medrol 40mg q8 for now, titrate as he shows more improvement - Type II NSTEMI due to demand ischemia manage medically echo shows preserved EF per cardiology, no further ischemic work up at this time no chest pain or pressure today - Acute kidney injury likely prerenal with infection, dehydration -- resolving Cr down to 1.4 this morning, still up from baseline of 1.2-1.3 continue to follow anti-GBM sent out still pending, urine eosinophils ordered hold on nephrology consult at this time as long as Cr improves eating and drinking well, no need for fluids resume diuretics tomorrow - Pneumoconiosis: palliative care consulted - Right lung nodule: FDG avid on PET scan in the past has refused EBUS in the past certainly not a candidate for bronchoscopy given current respiratory status will see if pleural fluid analysis provides a diagnosis - still pending today Full code - heparin prophylaxis keep on tele today, PT/OT consults
--- NOTE | 2017-08-10 20:10 | Palliative Care Consultation ---
Consultation Date of Consultation: August 10, 2017. Requesting Physician: Dr Acuña Attending Physician: Dr Mackay Reason for Consultation: Assist with medical decision-making in a patient with progressive pulmonary fibrosis History of Present Illness Met with , patient's stepson, and patient's daughter at bedside. Patient is a 66-year-old male who was admitted on 08/07 for a 3 week history of progressive shortness of breath. states this is his first admission for pulmonary symptoms. Patient's shortness of breath have been gradually increasing and feels he waited too long to come to the hospital. Patient uses CPAP at night and has been on 2 L of nasal cannula at home since this past February. Patient requires increase right of oxygen to 5 L with exertion. 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 On admission patient had a CT scan that showed consolidation of the right upper lobe and a segment of the right lower lobe along with progressive fibrosis, an underlying mass could not be ruled out. Patient required up to 12 L O2 he is improved to the point where he is on 6 L at this time. Patient was also found to have a pleural effusion, status post thoracentesis with removal of 900 cc of fluid. reports that approximately a month ago patient was able to perform work around the house, walk to the mailbox and back without any difficulty. In the past 3 weeks his respiratory status has declined where he could not even walk all the way across the room without getting short of breath. Patient feels he is improving, he is being followed by Dr. Heller, with plans to further and investigate the possible mass in the lung. In discussing CODE STATUS, patient would want to be fully resuscitated if there was a chance of recovery. He stated he did not would not want to be on a ventilator long-term. His is aware of his wishes and is willing to make any decisions needed. Past Medical/Surgical History Medical History: Black lung, CHF, COPD, diastolic CHF, hypertension, HLD, HENNA, GERD, PNA, CAD status post stent placement, diverticulosis, carotid artery disease status post carotid endarterectomy. Surgical History: Carotid endarterectomy, cardiac cath with stent placement, thoracentesis. Social History Smoking Status: Former Smoker History of Alcohol Use: Yes (MONTHLY) Drug Use: none Marital Status: Housing Status: lives with significant other Occupation Status: employed Review of Systems Constitutional: No fever, No chills Eyes: No worsening of vision ENT: + problem reported (Mild hard of hearing) Respiratory: + cough, + shortness of breath, + dyspnea on exertion Cardiac: No chest pain Abdomen: No pain Musculoskeletal: No swelling Male : No dysuria Neurologic: No memory loss Psychiatric: No depression symptoms Endo: + fatigue Allergies Coded Allergies: No Known Allergies (Verified , 08/07/17) Medications Current Inpatient Medications Medications (Trade) Dose Ordered Sig/Gail Route Start Time Stop Time Status Last Admin Dose Admin Aspirin (Ecotrin Tab) 81 mg HS PO 08/07/17 21:00 09/06/17 20:59 08/09/17 21:32 81 MG Pantoprazole Sodium (Protonix Tab) 40 mg QAM PO 08/08/17 09:00 09/07/17 08:59 08/10/17 07:31 40 MG Acetaminophen (Tylenol Tab) 650 mg Q4H PRN PO 08/07/17 14:15 09/06/17 14:14 Lorazepam (Ativan Inj) 0.5 mg Q4H PRN IV 08/07/17 14:15 09/06/17 14:14 Al Hydrox/Mg Hydrox/Simethicone (Maalox Max Susp) 15 ml Q4H PRN PO 08/07/17 14:15 09/06/17 14:14 Magnesium Hydroxide (Milk Of Magnesia Susp) 30 ml Q12H PRN PO 08/07/17 14:15 09/06/17 14:14 Ondansetron HCl (Zofran Inj) 4 mg Q6H PRN IV 08/07/17 14:15 09/06/17 14:14 Morphine Sulfate (MoRPHine SULFATE INJ) 2 mg Q2H PRN IV 08/07/17 14:15 08/21/17 14:14 Piperacillin Sod/ Tazobactam Sod 4.5 gm/Dextrose 120 ml @ 30 mls/hr Q8H IV 08/07/17 16:00 08/14/17 15:59 08/10/17 16:09 30 MLS/HR Miscellaneous Information (Consult) 1 ea UD PRN N/A 08/07/17 14:30 09/06/17 14:29 Miscellaneous Information (Consult) 1 ea UD PRN N/A 08/07/17 14:30 09/06/17 14:29 Albuterol/ Ipratropium (Duoneb) 3 ml Q6R INH 08/07/17 15:00 09/06/17 14:59 08/10/17 18:53 3 ML Albuterol Sulfate (Ventolin 0.083% 2.5MG/3ML Neb) 2.5 mg Q4R PRN INH 08/07/17 14:45 09/06/17 14:44 08/08/17 22:18 2.5 MG Atorvastatin Calcium (Lipitor Tab) 40 mg QAM PO 08/08/17 09:00 09/07/17 08:59 08/10/17 07:30 40 MG Potassium Chloride (Klor-Con Tab) 20 meq QAM PO 08/08/17 09:00 09/07/17 08:59 08/10/17 07:31 20 MEQ Lorazepam 0.5 mg/ Syringe 1 ml @ 1 mls/min Q4H PRN IV 08/07/17 16:00 09/06/17 15:59 Doxycycline Hyclate 100 mg/ Dextrose 110 ml @ 50 mls/hr BID IV 08/07/17 21:00 08/14/17 20:59 08/10/17 08:58 50 MLS/HR Methylprednisolone Sodium Succinate 40 mg/Syringe 0.64 ml @ 1.5 mls/min Q8H IV 08/08/17 00:00 09/07/17 00:00 08/10/17 16:08 1.5 MLS/MIN Magnesium Oxide (Mag-Ox Tab) 400 mg QPM PO 08/07/17 21:00 09/06/17 20:59 08/09/17 21:32 400 MG Heparin Sodium (Porcine) (Heparin Sq 5000 Unit/0.5ml) 5,000 unit Q8@0000,0800,1600 SQ 08/08/17 15:00 09/07/17 14:59 08/10/17 16:07 5,000 UNIT Pregabalin (Lyrica Cap) 150 mg BID PO 08/08/17 21:00 09/07/17 08:59 08/10/17 07:34 150 MG Vancomycin HCl 1250 mg/Sodium Chloride 275 ml @ 125 mls/hr Q14H IV 08/10/17 22:00 08/14/17 23:59 Furosemide (Lasix Tab) 20 mg DAILY PO 08/11/17 09:00 09/10/17 08:59 Valsartan (Diovan Tab) 160 mg QAM PO 08/11/17 09:00 09/10/17 08:59 Hydrochlorothiazide (Hydrochlorothiazide Tab) 12.5 mg QAM PO 08/11/17 09:00 09/10/17 08:59 Physical Exam Date Time Temp Pulse Resp B/P (MAP) Pulse Ox O2 Delivery O2 Flow Rate FiO2 08/10/17 19:19 36.9 86 24 152/72 (98) 87 Nasal Cannula 5.0 08/10/17 18:54 64 16 92 Nasal Cannula 5.0 08/10/17 16:00 Nasal Cannula 5.0 08/10/17 15:46 36.6 75 21 121/63 (82) 91 Nasal Cannula 5.0 08/10/17 14:10 88 24 85 Nasal Cannula 6.0 08/10/17 12:00 36.6 80 20 131/59 (83) 90 Nasal Cannula 5.5 08/10/17 12:00 Nasal Cannula 6.0 08/10/17 08:00 High Flow Oxygen 30.0 45 08/10/17 07:13 50 16 95 Nasal Cannula 40.0 50 08/10/17 07:01 36.7 61 18 117/60 (79) 95 6.0 08/10/17 04:00 93 BiPAP 6.0 08/10/17 03:35 36.5 53 16 123/64 (83) 93 6.0 08/10/17 00:58 36.6 80 18 132/69 (90) 95 08/10/17 00:00 95 BiPAP General Appearance: + mild distress (Mild increased shortness of breath with speech) Eyes: EOMI ENT: + pertinent finding (Mild hard of hearing) Respiratory: + decreased breath sounds, + pertinent finding (Mild increased work of breathing) Cardiovascular: regular rate, rhythm Abdomen: non tender, soft Musculoskeletal: normal tone 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iatric: alert, oriented x 3 Skin: warm/dry Laboratory Results Last 24 Hours Test 08/10/17 06:17 White Blood Count 8.96 K/uL Red Blood Count 4.88 M/uL Hemoglobin 14.6 g/dL Hematocrit 44.0 % Mean Corpuscular Volume 90.2 fL Mean Corpuscular Hemoglobin 29.9 pg Mean Corpuscular Hemoglobin Concent 33.2 g/dl Platelet Count 265 K/uL Mean Platelet Volume 10.1 fL Neutrophils (%) (Auto) 89.3 % Lymphocytes (%) (Auto) 6.4 % Monocytes (%) (Auto) 4.2 % Eosinophils (%) (Auto) 0.0 % Basophils (%) (Auto) 0.0 % Neutrophils # (Auto) 8.00 K/uL Lymphocytes # (Auto) 0.57 K/uL Monocytes # (Auto) 0.38 K/uL Eosinophils # (Auto) 0.00 K/uL Basophils # (Auto) 0.00 K/uL RDW Standard Deviation 46.9 fL RDW Coefficient of Variation 14.4 % Immature Granulocyte % (Auto) 0.1 % Immature Granulocyte # (Auto) 0.01 K/uL Activated Partial Thromboplast Time 25.5 SECONDS Partial Thromboplastin Ratio 1.0 Sodium Level 138 mmol/L Potassium Level 4.1 mmol/L Chloride Level 104 mmol/L Carbon Dioxide Level 25 mmol/L Anion Gap 9.0 mmol/L Blood Urea Nitrogen 31 mg/dl Creatinine 1.40 mg/dl Est Creatinine Clear Calc Drug Dose 58.8 ml/min Estimated GFR () 59.8 Estimated GFR (Non- 51.6 BUN/Creatinine Ratio 21.9 Random Glucose 111 mg/dl Calcium Level 8.9 mg/dl Magnesium Level 2.0 mg/dl Assessment & Plan Palliative Performance Scale: 50 % (1) Palliative care encounter Assessment & Plan: Met with patient and family, family comfortable with current plan of care. Goal is for patient to continue to improve and return home. Further evaluation of possible lung mass as per Dr. Heller. We will continue to follow peripherally, monitor patient's status, provide support to patient and family as needed. (2) Pneumoconiosis Status: Chronic Assessment & Plan: O2 dependent, patient improving with current therapies (3) Pleural effusion, right Status: Acute Assessment & Plan: Status post thoracentesis, further plans per Dr. Heller (4) Acute respiratory failure with hypoxia Status: Acute Assessment & Plan: Patient hopes to return home on previous level of oxygen at 2 L. Patient hopes to return to his previous functional status. Counseling and Coordination Total time spent 55 minutes with greater than 50% of the time spent at bedside discussing patient's current condition, hospital course, and goals of care.
[2017-08-10] MEDS: MAGNESIUM OXIDE 400 MG TAB PO SCH (20:22)
[2017-08-10] MEDS: ASPIRIN 81 MG ECTAB PO SCH (20:22)
[2017-08-11] VITALS (11 sets, daily range): BP systolic 120–161; BP diastolic 60–73; PULSE 52–83; TEMP 36.4–36.9; O2SAT 86–94
[2017-08-11] MEDS: PIPERACILL/TAZOBAC IV 4.5 GM in DEXTROSE 5% 100ML 100 ML IV SCH ×4 (00:09→23:00)
[2017-08-11] MEDS: METHYLPREDNISOLONE IV 40 MG in SYRINGE 0 ML IV SCH ×4 (00:09→20:53)
[2017-08-11] MEDS: HEPARIN SOD 5000 UNIT/0.5 ML CARP SQ SCH ×4 (00:10→20:56)
[2017-08-11] MEDS: ALBUT/IPRATROP 3MG/0.5MG NEB 3 ML VIAL INH SCH ×4 (01:42→18:54)
[2017-08-11 06:13] LABS: HEMATOCRIT 40.6 % (42-52); HEMOGLOBIN 13.8 g/dL (14.0-18.0); IG# 0.01 K/uL (0.00-0.02); LYMPH % 9.1 %; LYMPH ABS # 0.57 K/uL (1.2-3.4); MEAN CELL VOLUME 89.6 fL (80-100); MEAN CORPUSCULAR HEMOGLOBIN 30.5 pg (25-34); MEAN PLATELET VOLUME 9.4 fL (7.4-10.4); MONO % 5.1 %; MONO ABS # 0.32 K/uL (0.11-0.59); NEUT % 85.6 %; NEUT ABS # 5.38 K/uL (1.4-6.5); PLATELET COUNT 190 K/uL (130-400); RED CELL DISTRIBUTION WIDTH CV 14.2 % (11.5-14.5); RED CELL DISTRIBUTION WIDTH SD 46.4 fL (36.4-46.3); WHITE BLOOD COUNT 6.28 K/uL (4.8-10.8)
[2017-08-11 06:27] LABS: PTT PATIENT 27.4 SECONDS (21.0-31.0)
[2017-08-11 06:44] LABS: CALCIUM 8.6 mg/dl (8.5-10.1); CREATININE 1.37 mg/dl (0.60-1.40); POTASSIUM 4.3 mmol/L (3.5-5.1)
[2017-08-11] MEDS: PREGABALIN 150 MG CAP PO SCH ×2 (07:14→20:53)
[2017-08-11] MEDS: POTASSIUM CHLORIDE 20 MEQ TABCR PO SCH (07:14)
[2017-08-11] MEDS: HYDROCHLOROTHIAZIDE 25 MG TAB PO SCH (07:15)
[2017-08-11] MEDS: FUROSEMIDE 20 MG TAB PO SCH (07:16)
[2017-08-11] MEDS: VALSARTAN 80 MG TAB PO SCH (07:16)
[2017-08-11] MEDS: PANTOprazole SOD 40 MG TAB PO SCH (07:17)
[2017-08-11] MEDS: ATORVASTATIN 40 MG TAB PO SCH (07:17)
[2017-08-11] MEDS ORDERED: VALSARTAN/HCTZ 160/12.5 MG TAB PO SCH (09:00)
[2017-08-11] MEDS: DOXYCYCLINE IV 100 MG in DEXTROSE 5% 100ML 100 ML IV SCH ×2 (09:28→20:53)
--- NOTE | 2017-08-11 10:32 | PULMONARY PROGRESS NOTE ---
DATE: 08/11/2017 Pulmonary progress note. TIME: 9:00 a.m. SUBJECTIVE: The patient is feeling a little better. He is not quite as short of breath as he had been. He is finding it easier to move around. He has been sitting on the side of his bed for about an hour and a half. He is expectorating small quantities of brown sputum. OBJECTIVE: GENERAL: The patient appears comfortable. VITAL SIGNS: Temperature is 36.7. He has had no significant fevers. The cardiac rate is 86 beats per minute. The rhythm is regular. Blood pressure 122/62. LUNGS: Lung mcwilliams revealed mild rales bilaterally diffusely, but there are increased rales in the right upper lung field anteriorly and posteriorly. Oxygen saturation at present is 86 per minute on 5 liters. The patient did wear his BiPAP overnight and had no problems. EXTREMITIES: Showed no cyanosis, clubbing or edema. LABORATORY DATA: White count today is 6.28. Hemoglobin 13.8. Platelets 190,000. Electrolytes show sodium 141, potassium 4.3, chloride 108, bicarbonate 28. BUN is 26 with a creatinine of 1.37. IMPRESSIONS: 1. Respiratory failure with hypoxia. 2. Right upper lobe consolidation. 3. Brule workers' pneumoconiosis. 4. Chronic obstructive pulmonary disease. 5. Obstructive sleep apnea with complex sleep apnea. 6. Exudative right pleural effusion. COMMENTS AND RECOMMENDATIONS: The patient remains on methylprednisolone. He is currently at 40 mg IV q. 8 hours. He remains on triple antibiotics including vancomycin, doxycycline, and Zosyn. He remains on his neb treatments with DuoNebs. Would continue all of the above. It seems as though he is making some progress albeit slowly.
[2017-08-11] MEDS: VANCOMYCIN IV 1,250 MG in SODIUM CHLORIDE 0.9% 250ML 250 ML IV SCH (11:58)
--- NOTE | 2017-08-11 15:11 | Progress Note ---
Subjective Date of Service: August 11, 2017. Subjective Pt evaluation today including: conversation w/ patient, physical exam, lab review, review of inpatient medication list Pain: no pain PO Intake: adequate Voiding: no voiding problems patient breathing a little better again today, no cough still has dyspnea at rest and worse with exertion eating well, moving bowels reviewed labs, Cr is 1.37 appreciate palliative care consult, no change in Code status Problem List Medical Problems: (1) Hypoxemia Status: Acute (2) Pleural effusion, right Status: Acute (3) Pneumoconiosis Status: Chronic (4) Pneumonia Status: Acute Review of Systems Constitutional: + weakness, + fatigue Respiratory: + shortness of breath, + dyspnea on exertion, + dyspnea at rest All Other Systems: Reviewed and Negative Medications Current Inpatient Medications Medications (Trade) Dose Ordered Sig/Gail Route Start Time Stop Time Status Last Admin Dose Admin Aspirin (Ecotrin Tab) 81 mg HS PO 08/07/17 21:00 09/06/17 20:59 08/10/17 20:22 81 MG Pantoprazole Sodium (Protonix Tab) 40 mg QAM PO 08/08/17 09:00 09/07/17 08:59 08/11/17 07:17 40 MG Acetaminophen (Tylenol Tab) 650 mg Q4H PRN PO 08/07/17 14:15 09/06/17 14:14 Lorazepam (Ativan Inj) 0.5 mg Q4H PRN IV 08/07/17 14:15 09/06/17 14:14 Al Hydrox/Mg Hydrox/Simethicone (Maalox Max Susp) 15 ml Q4H PRN PO 08/07/17 14:15 09/06/17 14:14 Magnesium Hydroxide (Milk Of Magnesia Susp) 30 ml Q12H PRN PO 08/07/17 14:15 09/06/17 14:14 Ondansetron HCl (Zofran Inj) 4 mg Q6H PRN IV 08/07/17 14:15 09/06/17 14:14 Morphine Sulfate (MoRPHine SULFATE INJ) 2 mg Q2H PRN IV 08/07/17 14:15 08/21/17 14:14 Piperacillin Sod/ Tazobactam Sod 4.5 gm/Dextrose 120 ml @ 30 mls/hr Q8H IV 08/07/17 16:00 08/14/17 15:59 08/11/17 07:13 30 MLS/HR Miscellaneous Information (Consult) 1 ea UD PRN N/A 08/07/17 14:30 09/06/17 14:29 Miscellaneous Information (Consult) 1 ea UD PRN N/A 08/07/17 14:30 09/06/17 14:29 Albuterol/ Ipratropium (Duoneb) 3 ml Q6R INH 08/07/17 15:00 09/06/17 14:59 08/11/17 14:15 3 ML Albuterol Sulfate (Ventolin 0.083% 2.5MG/3ML Neb) 2.5 mg Q4R PRN INH 08/07/17 14:45 09/06/17 14:44 08/08/17 22:18 2.5 MG Atorvastatin Calcium (Lipitor Tab) 40 mg QAM PO 08/08/17 09:00 09/07/17 08:59 08/11/17 07:17 40 MG Potassium Chloride (Klor-Con Tab) 20 meq QAM PO 08/08/17 09:00 09/07/17 08:59 08/11/17 07:14 20 MEQ Lorazepam 0.5 mg/ Syringe 1 ml @ 1 mls/min Q4H PRN IV 08/07/17 16:00 09/06/17 15:59 Doxycycline Hyclate 100 mg/ Dextrose 110 ml @ 50 mls/hr BID IV 08/07/17 21:00 08/14/17 20:59 08/11/17 09:28 50 MLS/HR Methylprednisolone Sodium Succinate 40 mg/Syringe 0.64 ml @ 1.5 mls/min Q8H IV 08/08/17 00:00 09/07/17 00:00 08/11/17 07:13 1.5 MLS/MIN Magnesium Oxide (Mag-Ox Tab) 400 mg QPM PO 08/07/17 21:00 09/06/17 20:59 08/10/17 20:22 400 MG Heparin Sodium (Porcine) (Heparin Sq 5000 Unit/0.5ml) 5,000 unit Q8@0000,0800,1600 SQ 08/08/17 15:00 09/07/17 14:59 08/11/17 07:19 5,000 UNIT Pregabalin (Lyrica Cap) 150 mg BID PO 08/08/17 21:00 09/07/17 08:59 08/11/17 07:14 150 MG Vancomycin HCl 1250 mg/Sodium Chloride 275 ml @ 125 mls/hr Q14H IV 08/10/17 22:00 08/14/17 23:59 08/11/17 11:58 125 MLS/HR Furosemide (Lasix Tab) 20 mg DAILY PO 08/11/17 09:00 09/10/17 08:59 08/11/17 07:16 20 MG Valsartan (Diovan Tab) 160 mg QAM PO 08/11/17 09:00 09/10/17 08:59 08/11/17 07:16 160 MG Hydrochlorothiazide (Hydrochlorothiazide Tab) 12.5 mg QAM PO 08/11/17 09:00 09/10/17 08:59 08/11/17 07:15 12.5 MG Objective Vital Signs Date Time Temp Pulse Resp B/P (MAP) Pulse Ox O2 Delivery O2 Flow Rate FiO2 08/11/17 14:15 78 20 87 Nasal Cannula 6.0 08/11/17 12:00 Nasal Cannula 6.0 08/11/17 11:56 36.6 59 16 120/60 (80) 90 Nasal Cannula 6.0 08/11/17 08:00 Nasal Cannula 6.0 08/11/17 07:17 60 20 89 Nasal Cannula 5.0 08/11/17 07:17 36.7 61 16 122/62 (82) 93 Nasal Cannula 5.0 Humidified Oxygen 08/11/17 04:00 94 BiPAP 6.0 08/11/17 04:00 36.4 61 15 131/73 (92) 94 BiPAP 6.0 08/11/17 01:44 52 20 93 BiPAP/CPAP 6.0 08/11/17 00:09 36.9 69 20 142/72 (95) 92 Room Air 08/11/17 00:00 92 Nasal Cannula 6.0 08/10/17 20:11 90 6.0 08/10/17 20:00 90 Nasal Cannula 6.0 08/10/17 19:19 36.9 86 24 152/72 (98) 87 Nasal Cannula 5.0 08/10/17 18:54 64 16 92 Nasal Cannula 5.0 08/10/17 16:00 Nasal Cannula 5.0 08/10/17 15:46 36.6 75 21 121/63 (82) 91 Nasal Cannula 5.0 Physical Exam General Appearance: WD/WN, no apparent distress Eyes: normal inspection, EOMI, sclerae normal ENT: normal ENT inspection, hearing grossly normal, pharynx normal Neck: supple, no adenopathy, no JVD, trachea midline Respiratory/Chest: chest non-tender, lungs clear, normal breath sounds, no respiratory distress, no accessory muscle use Cardiovascular: regular rate, rhythm, no edema, no gallop, no JVD, no murmur Abdomen: normal bowel sounds, non tender, soft, no organomegaly Extremities: normal range of motion, non-tender, normal inspection, no pedal edema, no calf tenderness, pelvis stable 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iatric: stitchdown toe former II-XII nml as tested, no motor/sensory deficits, alert, normal mood/affect, oriented x 3 Skin: normal color, warm/dry, no rash Laboratory Results Last 24 Hours Test 08/11/17 06:02 White Blood Count 6.28 K/uL Red Blood Count 4.53 M/uL Hemoglobin 13.8 g/dL Hematocrit 40.6 % Mean Corpuscular Volume 89.6 fL Mean Corpuscular Hemoglobin 30.5 pg Mean Corpuscular Hemoglobin Concent 34.0 g/dl Platelet Count 190 K/uL Mean Platelet Volume 9.4 fL Neutrophils (%) (Auto) 85.6 % Lymphocytes (%) (Auto) 9.1 % Monocytes (%) (Auto) 5.1 % Eosinophils (%) (Auto) 0.0 % Basophils (%) (Auto) 0.0 % Neutrophils # (Auto) 5.38 K/uL Lymphocytes # (Auto) 0.57 K/uL Monocytes # (Auto) 0.32 K/uL Eosinophils # (Auto) 0.00 K/uL Basophils # (Auto) 0.00 K/uL RDW Standard Deviation 46.4 fL RDW Coefficient of Variation 14.2 % Immature Granulocyte % (Auto) 0.2 % Immature Granulocyte # (Auto) 0.01 K/uL Activated Partial Thromboplast Time 27.4 SECONDS Partial Thromboplastin Ratio 1.1 Sodium Level 141 mmol/L Potassium Level 4.3 mmol/L Chloride Level 108 mmol/L Carbon Dioxide Level 28 mmol/L Anion Gap 5.0 mmol/L Blood Urea Nitrogen 26 mg/dl Creatinine 1.37 mg/dl Est Creatinine Clear Calc Drug Dose 60.1 ml/min Estimated GFR () 61.4 Estimated GFR (Non- 53.0 BUN/Creatinine Ratio 19.1 Random Glucose 127 mg/dl Calcium Level 8.6 mg/dl Magnesium Level 2.0 mg/dl Assessment and Plan 66 y/o M Hx ILD, 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 he pt states that he has been progressively SOB over the past 4 weeks. His oxygen demand has steadily increased and he cannot take more than a few steps without becoming excessively SOB. He underwent a CT chest the prior day which revealed consolidations in the right upper lobe and superior segment of the right lower lobe concerning for pneumonia, although progressive massive fibrosis and an underlying mass could not be excluded as alternative diagnoses. His SOB acutely worsened this AM and his states she was unable to keep his oxygen saturation above the 70s and presented to the hospital therefore. He is requiring 10L 02 at the time of admission. Initial labs are notable for an elevated troponin and mild CARINE. An ABG shows hypoxia and alkalosis. A CXR mentions a R pleural effusion, however, this may be a consolidation if compared to the CT one day earlier. - Acute respiratory failure with hypoxia on chronic respiratory failure, had increased O2 requirements, increased work of breathing oxygen at 6L NC today, BIPAP at night still not at baseline which is 2-3L NC due to COPD, pneumoconiosis, pneumonia, pleural effusion treat above conditions, titrate oxygen as tolerated still with dyspnea at rest, slowly responding - Right sided pleural effusion: thoracentesis on 08/08, 900cc out appears exudative on initial analysis pathology report still pending given that it is the weekend pleural fluid cultures show no growth has FDG avid right sided lung nodule that patient has declined EBUS as outpatient, not currently a candidate for any type of bronchoscopy - Multifocal pneumonia: treat with Zosyn, Vancomycin and Doxycycline, day 4 Zithromax stopped due to QT prolongation continue Solu Medrol 40mg q8 for now, hold on titrating down until he shows more clinical improvement - Type II NSTEMI due to demand ischemia manage medically echo shows preserved EF per cardiology, no further ischemic work up at this time no chest pain or pressure today - Acute kidney injury likely prerenal with infection, dehydration -- resolved Cr down to 1.3 this morning, thus he is back to baseline continue to follow anti-GBM sent out still pending, urine eosinophils ordered hold on nephrology consult at this time as long as Cr improves eating and drinking well, no need for fluids resume diuretics today - Pneumoconiosis: palliative care consulted no change in code status - Right lung nodule: FDG avid on PET scan in the past has refused EBUS in the past certainly not a candidate for bronchoscopy given current respiratory status will see if pleural fluid analysis provides a diagnosis - still pending today Full code - heparin prophylaxis keep on tele
[2017-08-11] MEDS: ASPIRIN 81 MG ECTAB PO SCH (20:53)
[2017-08-11] MEDS: MAGNESIUM OXIDE 400 MG TAB PO SCH (20:53)
[2017-08-12] VITALS (11 sets, daily range): BP systolic 120–165; BP diastolic 57–71; PULSE 53–106; TEMP 36–37; O2SAT 81–97
[2017-08-12] MEDS ORDERED: VANCOMYCIN TROUGH ONE (01:30)
[2017-08-12 01:42] LABS: HEMATOCRIT 42.6 % (42-52); HEMOGLOBIN 14.5 g/dL (14.0-18.0); IG# 0.03 K/uL (0.00-0.02); LYMPH % 4.7 %; LYMPH ABS # 0.41 K/uL (1.2-3.4); MEAN CELL VOLUME 88.8 fL (80-100); MEAN CORPUSCULAR HEMOGLOBIN 30.2 pg (25-34); MEAN PLATELET VOLUME 9.6 fL (7.4-10.4); MONO % 4.7 %; MONO ABS # 0.41 K/uL (0.11-0.59); NEUT % 90.3 %; NEUT ABS # 7.94 K/uL (1.4-6.5); PLATELET COUNT 225 K/uL (130-400); RED CELL DISTRIBUTION WIDTH CV 14.2 % (11.5-14.5); WHITE BLOOD COUNT 8.79 K/uL (4.8-10.8)
[2017-08-12 02:03] LABS: CALCIUM 8.7 mg/dl (8.5-10.1); CREATININE 1.44 mg/dl (0.60-1.40); POTASSIUM 3.5 mmol/L (3.5-5.1)
[2017-08-12] MEDS: VANCOMYCIN IV 1,250 MG in SODIUM CHLORIDE 0.9% 250ML 250 ML IV SCH ×2 (02:09→15:46)
[2017-08-12] MEDS: ALBUT/IPRATROP 3MG/0.5MG NEB 3 ML VIAL INH SCH ×4 (02:20→18:56)
--- NOTE | 2017-08-12 06:45 | Progress Note ---
Post ICU Progress Note Date & Time August 12, 2017 at 06:43 Vital Signs Vital Signs Past 12 Hours Date Time Temp Pulse Resp B/P (MAP) Pulse Ox O2 Delivery O2 Flow Rate FiO2 08/12/17 04:27 36.0 63 23 129/66 (87) 97 CPAP 08/12/17 04:00 CPAP 08/12/17 02:21 53 14 92 BiPAP/CPAP 6.0 08/12/17 00:01 Nasal Cannula 6.0 08/11/17 23:35 36.7 82 20 146/72 (96) 88 Nasal Cannula 6.0 08/11/17 20:02 Nasal Cannula 6.0 08/11/17 19:30 36.8 83 18 161/68 (99) 92 Nasal Cannula 6.0 08/11/17 18:56 69 20 88 Nasal Cannula 6.0 Notes Mental Status: alert / awake Nausea / Vomiting: adequately controlled Pain: adequately controlled Airway Patency, RR, SpO2: stable & adequate BP & HR: stable & adequate Patient is a 66-year-old male who was admitted for acute hypoxic respiratory failure. Was evaluated in the ICU and eventually downgraded to telemetry status. He has had continued increased oxygen requirement for the last few days. He complains of some persistent shortness of breath, does admit to feeling better than when initially presented. On evaluation, the patient is resting comfortably with CPAP in place. He offers no complaints and does admit to feeling somewhat better at this point. Consider outpatient follow up in 1 to 2 weeks with: Pulmonary Repeat imaging needed: Per admitting services. Follow up cultures: None Reviewed progress notes, labs, and inpatient medication list Continue current management Additional recommendations: None at this time. Thank you for allowing us to participate in the care of this patient. At this time, the Critical Care Services will sign off on this case. Please feel free to reconsult as needed. Consults & Procedures Consultants: Pulm Cards
[2017-08-12] MEDS: PIPERACILL/TAZOBAC IV 4.5 GM in DEXTROSE 5% 100ML 100 ML IV SCH ×3 (07:35→22:58)
[2017-08-12] MEDS: HYDROCHLOROTHIAZIDE 25 MG TAB PO SCH (07:40)
[2017-08-12] MEDS: ATORVASTATIN 40 MG TAB PO SCH (07:40)
[2017-08-12] MEDS: VALSARTAN 80 MG TAB PO SCH (07:41)
[2017-08-12] MEDS: PANTOprazole SOD 40 MG TAB PO SCH (07:41)
[2017-08-12] MEDS: FUROSEMIDE 20 MG TAB PO SCH (07:42)
[2017-08-12] MEDS: POTASSIUM CHLORIDE 20 MEQ TABCR PO SCH (07:42)
[2017-08-12] MEDS: HEPARIN SOD 5000 UNIT/0.5 ML CARP SQ SCH ×3 (07:47→22:59)
[2017-08-12] MEDS: PREGABALIN 150 MG CAP PO SCH ×2 (07:47→19:55)
[2017-08-12] MEDS: DOXYCYCLINE IV 100 MG in DEXTROSE 5% 100ML 100 ML IV SCH ×2 (07:47→19:55)
[2017-08-12] MEDS: METHYLPREDNISOLONE IV 40 MG in SYRINGE 0 ML IV SCH ×2 (08:17→19:55)
--- NOTE | 2017-08-12 08:47 | PULMONARY PROGRESS NOTE ---
DATE: 08/12/2017 TIME: 7:25 a.m. SUBJECTIVE: The patient continues to have shortness of breath and significant hypoxia with any exertion. At rest, he is fairly comfortable. He wore his BiPAP overnight. He did well according to nurses. The patient states he was only disturbed or awakened when the staff came in to evaluate him. He is not coughing much. He has no pain. His appetite remains good. When I walked into the patient's room, his saturations were only 74% on 6 L. He states that he had been off BiPAP for just a few minutes and he was reaching to take the BiPAP off the table and put it on his bed and just this little exertion apparently resulted in the drop in his saturations. OBJECTIVE: GENERAL: The patient looked short of breath when I first went in to examine him. In about 5 minutes, he looked overall comfortable. VITAL SIGNS: Temperature is 36.6. There has been no fevers for several days. HEENT: Mouth exam showed crowding with a Mallampati grade 3. NECK: No lymph nodes are palpable. HEART: Heart rate was 85 per minute at the time of my exam. Occasional PVCs were seen. Blood pressure 161/69. LUNGS: Lung mcwilliams revealed fairly diffuse rales which are dry. Respiratory rate was 24. Saturation started off at 74 and was up to 88% when I was finishing examining the patient. ABDOMEN: Soft. Good bowel sounds are heard. EXTREMITIES: Showed trace edema of both lower extremities. LABORATORY DATA: White count is 8.79. Hemoglobin 14.5. Platelets are 225,000. Electrolytes show sodium 140, potassium 3.5, chloride 106, bicarb 25. BUN is 26 with a creatinine of 1.44. The mycoplasma IgG titer was elevated at 3.45. The mycoplasma IgM was 124, which would be within the limits of normal. The elevated IgG does not differentiate between acute and chronic infection and I am doubtful this is acute. Pleural fluid continues to show no growth thus far. IMPRESSIONS: 1. Respiratory failure with hypoxia. 2. Right upper lobe consolidation. 3. Chronic obstructive pulmonary disease. 4. CWP. 5. Obstructive sleep apnea with complex sleep apnea. 6. Right pleural effusion -- exudative. COMMENTS AND RECOMMENDATIONS: The patient's progress is very slow. The exact source of the right upper lobe infiltrate is unknown. Unfortunately, he is too hypoxic to be undergoing bronchoscopy. Superimposed upon this opacification is underlying emphysema and interstitial disease. For now, we would continue with the triple antibiotics and steroids that he is on. I would start to decrease the steroids somewhat. I will make that adjustment. It does not seem like it has helped him dramatically.
--- NOTE | 2017-08-12 09:51 | Pharmacy Progress Note ---
Pharmacy Antibiotic Prog Note Date of Service August 12, 2017. Objective Height (Feet): 5 Height (Inches): 9.00 Weight (Kilograms): 96.900 Lab Results (24hrs): Test 08/12/17 01:20 White Blood Count 8.79 K/uL (4.8-10.8) Red Blood Count 4.80 M/uL (4.7-6.1) Hemoglobin 14.5 g/dL (14.0-18.0) Hematocrit 42.6 % (42-52) Mean Corpuscular Volume 88.8 fL (80-100) Mean Corpuscular Hemoglobin 30.2 pg (25-34) Mean Corpuscular Hemoglobin Concent 34.0 g/dl (32-36) Platelet Count 225 K/uL (130-400) Mean Platelet Volume 9.6 fL (7.4-10.4) Neutrophils (%) (Auto) 90.3 % Lymphocytes (%) (Auto) 4.7 % Monocytes (%) (Auto) 4.7 % Eosinophils (%) (Auto) 0.0 % Basophils (%) (Auto) 0.0 % Neutrophils # (Auto) 7.94 K/uL (1.4-6.5) Lymphocytes # (Auto) 0.41 K/uL (1.2-3.4) Monocytes # (Auto) 0.41 K/uL (0.11-0.59) Eosinophils # (Auto) 0.00 K/uL (0-0.5) Basophils # (Auto) 0.00 K/uL (0-0.2) RDW Standard Deviation 46.0 fL (36.4-46.3) RDW Coefficient of Variation 14.2 % (11.5-14.5) Immature Granulocyte % (Auto) 0.3 % Immature Granulocyte # (Auto) 0.03 K/uL (0.00-0.02) Activated Partial Thromboplast Time 27.0 SECONDS (21.0-31.0) Partial Thromboplastin Ratio 1.0 Sodium Level 140 mmol/L (136-145) Potassium Level 3.5 mmol/L (3.5-5.1) Chloride Level 106 mmol/L (98-107) Carbon Dioxide Level 25 mmol/L (21-32) Anion Gap 9.0 mmol/L (3-11) Blood Urea Nitrogen 26 mg/dl (7-18) Creatinine 1.44 mg/dl (0.60-1.40) Est Creatinine Clear Calc Drug Dose 57.1 ml/min Estimated GFR () 57.8 Estimated GFR (Non- 49.9 BUN/Creatinine Ratio 18.2 (10-20) Random Glucose 122 mg/dl (70-99) Calcium Level 8.7 mg/dl (8.5-10.1) Magnesium Level 2.0 mg/dl (1.8-2.4) Vancomycin Level Trough 15.7 mcg/ml (SEE COMMENT) Assessment & Plan Assessment * 66 yo M with hypoxic respiratory failure 2nd multifocal pneumonia, parapneumonic effusion, COPD exacerbation ([facility] interstitial lung disease) * Day 6 of Zosyn, vancomycin, and doxycycline * Currently requiring BiPAP - significant O2 desaturation with very minimal exertion without BiPAP * WBC wnl, afebrile * Mycoplasma IgG positive (suggests active infection vs. previous infection) and IgM negative (does not rule active infection). On doxycycline which should cover this if infection is current * SCr stable and at/near baseline Vancomycin * Goal vancomycin trough 15-20 mcg/mL * Trough of 15.7 mcg/mL is therapeutic * This was drawn at an appropriate time and is likely at/near steady state * Do not anticipate further accumulation 2nd BMI * Continue current vancomycin Plan * Continue vancomycin 1250 mg IV q14h * Repeat trough dependent on length of vancomycin therapy. Will consider ordering in next 3-5 days (or sooner if renal function changes or patient condition worsens) Pharmacy will continue to follow and will adjust dose/frequency as necessary. Thank you
[2017-08-12] MEDS: ALBUTEROL 0.083% NEBU SOLN 3 ML VIAL INH PRN (11:12)
--- NOTE | 2017-08-12 13:43 | DIAGNOSTIC IMAGING REPORT ---
CHEST ONE VIEW PORTABLE CLINICAL HISTORY: Increase hypoxia COMPARISON STUDY: 08/10/2017 FINDINGS: The heart remains enlarged. There is interstitial thickening. There are more focal airspace opacities within the right mid and upper lung zone. A small right pleural effusion is suspected. There is underlying emphysema.[ IMPRESSION: 1. Stable mild cardiomegaly and small right pleural effusion 2. Stable airspace opacities most pronounced in the right mid and upper lung zones Electronically signed by: Keon Brown M.D. 08/12/2017 1:41 PM Dictated Date/Time: 08/12/2017 1:40 PM
[2017-08-12] MEDS: MAGNESIUM OXIDE 400 MG TAB PO SCH (19:56)
[2017-08-12] MEDS: ASPIRIN 81 MG ECTAB PO SCH (19:56)
--- NOTE | 2017-08-12 22:47 | Progress Note ---
Subjective Date of Service: August 12, 2017. Subjective Pt evaluation today including: conversation w/ patient, physical exam, lab review, review of studies, review of inpatient medication list Pain: no pain PO Intake: adequate Voiding: no voiding problems patient more hypoxic this AM and more dyspneic CXR this AM showed stable infiltrates, no pulmonary edema or worsening infiltrates coughing more today, slightly productive, trying to give sputum sample saturations drop to 70's when standing and walking still eating well reviewed cultures, no growth on pleural fluid cytology still pending on the weekend Problem List Medical Problems: (1) Hypoxemia Status: Acute (2) Pleural effusion, right Status: Acute (3) Pneumoconiosis Status: Chronic (4) Pneumonia Status: Acute Review of Systems Constitutional: + weakness, + fatigue Respiratory: + cough, + sputum, + shortness of breath, + dyspnea on exertion, + dyspnea at rest Neurologic: + weakness All Other Systems: Reviewed and Negative Medications Current Inpatient Medications Medications (Trade) Dose Ordered Sig/Gail Route Start Time Stop Time Status Last Admin Dose Admin Aspirin (Ecotrin Tab) 81 mg HS PO 08/07/17 21:00 09/06/17 20:59 08/12/17 19:56 81 MG Pantoprazole Sodium (Protonix Tab) 40 mg QAM PO 08/08/17 09:00 09/07/17 08:59 08/12/17 07:41 40 MG Acetaminophen (Tylenol Tab) 650 mg Q4H PRN PO 08/07/17 14:15 09/06/17 14:14 Lorazepam (Ativan Inj) 0.5 mg Q4H PRN IV 08/07/17 14:15 09/06/17 14:14 Al Hydrox/Mg Hydrox/Simethicone (Maalox Max Susp) 15 ml Q4H PRN PO 08/07/17 14:15 09/06/17 14:14 Magnesium Hydroxide (Milk Of Magnesia Susp) 30 ml Q12H PRN PO 08/07/17 14:15 09/06/17 14:14 Ondansetron HCl (Zofran Inj) 4 mg Q6H PRN IV 08/07/17 14:15 09/06/17 14:14 Morphine Sulfate (MoRPHine SULFATE INJ) 2 mg Q2H PRN IV 08/07/17 14:15 08/21/17 14:14 Piperacillin Sod/ Tazobactam Sod 4.5 gm/Dextrose 120 ml @ 30 mls/hr Q8H IV 08/07/17 16:00 08/14/17 15:59 08/12/17 15:46 30 MLS/HR Miscellaneous Information (Consult) 1 ea UD PRN N/A 08/07/17 14:30 09/06/17 14:29 Miscellaneous Information (Consult) 1 ea UD PRN N/A 08/07/17 14:30 09/06/17 14:29 Albuterol/ Ipratropium (Duoneb) 3 ml Q6R INH 08/07/17 15:00 09/06/17 14:59 08/12/17 18:56 3 ML Albuterol Sulfate (Ventolin 0.083% 2.5MG/3ML Neb) 2.5 mg Q4R PRN INH 08/07/17 14:45 09/06/17 14:44 08/12/17 11:12 2.5 MG Atorvastatin Calcium (Lipitor Tab) 40 mg QAM PO 08/08/17 09:00 09/07/17 08:59 08/12/17 07:40 40 MG Potassium Chloride (Klor-Con Tab) 20 meq QAM PO 08/08/17 09:00 09/07/17 08:59 08/12/17 07:42 20 MEQ Lorazepam 0.5 mg/ Syringe 1 ml @ 1 mls/min Q4H PRN IV 08/07/17 16:00 09/06/17 15:59 Doxycycline Hyclate 100 mg/ Dextrose 110 ml @ 50 mls/hr BID IV 08/07/17 21:00 08/14/17 20:59 08/12/17 19:55 50 MLS/HR Magnesium Oxide (Mag-Ox Tab) 400 mg QPM PO 08/07/17 21:00 09/06/17 20:59 08/12/17 19:56 400 MG Heparin Sodium (Porcine) (Heparin Sq 5000 Unit/0.5ml) 5,000 unit Q8@0000,0800,1600 SQ 08/08/17 15:00 09/07/17 14:59 08/12/17 15:45 5,000 UNIT Pregabalin (Lyrica Cap) 150 mg BID PO 08/08/17 21:00 09/07/17 08:59 5/20/18 19:55 150 MG Vancomycin HCl 1250 mg/Sodium Chloride 275 ml @ 125 mls/hr Q14H IV 08/10/17 22:00 08/14/17 23:59 08/12/17 15:46 125 MLS/HR Furosemide (Lasix Tab) 20 mg DAILY PO 08/11/17 09:00 09/10/17 08:59 08/12/17 07:42 20 MG Valsartan (Diovan Tab) 160 mg QAM PO 08/11/17 09:00 09/10/17 08:59 08/12/17 07:41 160 MG Hydrochlorothiazide (Hydrochlorothiazide Tab) 12.5 mg QAM PO 08/11/17 09:00 09/10/17 08:59 08/12/17 07:40 12.5 MG Methylprednisolone Sodium Succinate 40 mg/Syringe 0.64 ml @ 1.5 mls/min Q12H IV 08/12/17 09:00 09/11/17 08:59 08/12/17 19:55 1.5 MLS/MIN Objective Vital Signs Date Time Temp Pulse Resp B/P (MAP) Pulse Ox O2 Delivery O2 Flow Rate FiO2 08/12/17 20:00 Nasal Cannula 6.0 08/12/17 19:46 37.0 81 18 139/62 (87) 90 Nasal Cannula 6.0 08/12/17 18:57 77 14 93 Nasal Cannula 6.0 08/12/17 16:00 Nasal Cannula 5.0 08/12/17 15:58 36.7 88 22 165/59 (94) 89 Oxymask 10.0 08/12/17 13:25 98 18 91 Nasal Cannula 6.0 08/12/17 12:00 Nasal Cannula 5.0 08/12/17 11:45 36.7 90 16 147/71 (96) 91 Nasal Cannula 6.0 Humidified Oxygen 08/12/17 11:12 91 18 88 Nasal Cannula 6.0 08/12/17 08:00 Nasal Cannula 6.0 08/12/17 06:50 36.6 106 24 161/69 (99) 81 Nasal Cannula 7.0 08/12/17 06:45 66 18 88 Nasal Cannula 6.0 08/12/17 04:27 36.0 63 23 129/66 (87) 97 CPAP 08/12/17 04:00 CPAP 08/12/17 02:21 53 14 92 BiPAP/CPAP 6.0 08/12/17 00:01 Nasal Cannula 6.0 08/11/17 23:35 36.7 82 20 146/72 (96) 88 Nasal Cannula 6.0 Physical Exam General Appearance: WD/WN, no apparent distress Eyes: normal inspection, EOMI, sclerae normal ENT: normal ENT inspection, hearing grossly normal, pharynx normal Neck: supple, no adenopathy, no JVD, trachea midline Respiratory/Chest: chest non-tender, lungs clear, normal breath sounds, no respiratory distress, + accessory muscle use Cardiovascular: regular rate, rhythm, no edema, no gallop, no JVD, no murmur Abdomen: normal bowel sounds, non tender, soft Extremities: normal range of motion, non-tender, normal inspection, no pedal edema, no calf tenderness, pelvis stable 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, no motor/sensory deficits, alert, normal mood/affect, oriented x 3 Skin: normal color, warm/dry, no rash Laboratory Results Last 24 Hours Test 08/12/17 01:20 White Blood Count 8.79 K/uL Red Blood Count 4.80 M/uL Hemoglobin 14.5 g/dL Hematocrit 42.6 % Mean Corpuscular Volume 88.8 fL Mean Corpuscular Hemoglobin 30.2 pg Mean Corpuscular Hemoglobin Concent 34.0 g/dl Platelet Count 225 K/uL Mean Platelet Volume 9.6 fL Neutrophils (%) (Auto) 90.3 % Lymphocytes (%) (Auto) 4.7 % Monocytes (%) (Auto) 4.7 % Eosinophils (%) (Auto) 0.0 % Basophils (%) (Auto) 0.0 % Neutrophils # (Auto) 7.94 K/uL Lymphocytes # (Auto) 0.41 K/uL Monocytes # (Auto) 0.41 K/uL Eosinophils # (Auto) 0.00 K/uL Basophils # (Auto) 0.00 K/uL RDW Standard Deviation 46.0 fL RDW Coefficient of Variation 14.2 % Immature Granulocyte % (Auto) 0.3 % Immature Granulocyte # (Auto) 0.03 K/uL Activated Partial Thromboplast Time 27.0 SECONDS Partial Thromboplastin Ratio 1.0 Sodium Level 140 mmol/L Potassium Level 3.5 mmol/L Chloride Level 106 mmol/L Carbon Dioxide Level 25 mmol/L Anion Gap 9.0 mmol/L Blood Urea Nitrogen 26 mg/dl Creatinine 1.44 mg/dl Est Creatinine Clear Calc Drug Dose 57.1 ml/min Estimated GFR () 57.8 Estimated GFR (Non- 49.9 BUN/Creatinine Ratio 18.2 Random Glucose 122 mg/dl Calcium Level 8.7 mg/dl Magnesium Level 2.0 mg/dl Vancomycin Level Trough 15.7 mcg/ml Assessment and Plan 66 y/o M Hx ILD, 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 he pt states that he has been progressively SOB over the past 4 weeks. His oxygen demand has steadily increased and he cannot take more than a few steps without becoming excessively SOB. He underwent a CT chest the prior day which revealed consolidations in the right upper lobe and superior segment of the right lower lobe concerning for pneumonia, although progressive massive fibrosis and an underlying mass could not be excluded as alternative diagnoses. His SOB acutely worsened this AM and his states she was unable to keep his oxygen saturation above the 70s and presented to the hospital therefore. He is requiring 10L 02 at the time of admission. Initial labs are notable for an elevated troponin and mild CARINE. An ABG shows hypoxia and alkalosis. A CXR mentions a R pleural effusion, however, this may be a consolidation if compared to the CT one day earlier. - Acute respiratory failure with hypoxia on chronic respiratory failure, had increased O2 requirements, increased work of breathing oxygen requirement up slightly today at 7-8L, BIPAP at night still not at baseline which is 2-3L NC CXR this AM showed that infiltrates NOT getting worse and no edema hypoxia due to COPD, pneumoconiosis, pneumonia, pleural effusion treat above conditions, titrate oxygen as tolerated still with dyspnea at rest, not responding significantly - Right sided pleural effusion: thoracentesis on 08/08, 900cc out appears exudative on initial analysis pathology report still pending given that it is the weekend, look for results tomorrow pleural fluid cultures show no growth has FDG avid right sided lung nodule that patient has declined EBUS as outpatient, not currently a candidate for any type of bronchoscopy - Multifocal pneumonia: treat with Zosyn, Vancomycin and Doxycycline, day 5 Zithromax stopped due to QT prolongation continue Solu Medrol 40mg q8 for now, hold on titrating down until he shows more clinical improvement hold on plans to taper abx since oxygen requirements worse CXR today shows infiltrates stable Legionella negative, Mycoplasma IgM negative, D beta-glucan pending - Type II NSTEMI due to demand ischemia manage medically echo shows preserved EF per cardiology, no further ischemic work up at this time no chest pain or pressure today - Acute kidney injury likely prerenal with infection, dehydration -- resolved Cr down to 1.3 yesterday, up slightly to 1.4 today, he is back to baseline continue to follow anti-GBM sent out - negative resume diuretics yesterday - Pneumoconiosis: palliative care consulted no change in code status - Right lung nodule: FDG avid on PET scan in the past has refused EBUS in the past certainly not a candidate for bronchoscopy given current respiratory status will see if pleural fluid analysis provides a diagnosis - still pending today Full code - heparin prophylaxis keep on tele
[2017-08-13] VITALS (13 sets, daily range): BP systolic 117–147; BP diastolic 59–79; PULSE 55–81; TEMP 36.9–37.1; O2SAT 86–94
[2017-08-13] MEDS: ALBUT/IPRATROP 3MG/0.5MG NEB 3 ML VIAL INH SCH ×4 (01:53→19:09)
[2017-08-13] MEDS: VANCOMYCIN IV 1,250 MG in SODIUM CHLORIDE 0.9% 250ML 250 ML IV SCH ×2 (05:49→20:04)
[2017-08-13 06:19] LABS: PTT PATIENT 29.6 SECONDS (21.0-31.0)
[2017-08-13] MEDS: HEPARIN SOD 5000 UNIT/0.5 ML CARP SQ SCH ×4 (07:22→23:09)
[2017-08-13] MEDS: PIPERACILL/TAZOBAC IV 4.5 GM in DEXTROSE 5% 100ML 100 ML IV SCH ×3 (07:24→23:08)
[2017-08-13] MEDS: PREGABALIN 150 MG CAP PO SCH ×2 (07:24→21:03)
[2017-08-13] MEDS: HYDROCHLOROTHIAZIDE 25 MG TAB PO SCH (07:24)
[2017-08-13] MEDS: POTASSIUM CHLORIDE 20 MEQ TABCR PO SCH (07:25)
[2017-08-13] MEDS: VALSARTAN 80 MG TAB PO SCH (07:25)
[2017-08-13] MEDS: ATORVASTATIN 40 MG TAB PO SCH (07:25)
[2017-08-13] MEDS: PANTOprazole SOD 40 MG TAB PO SCH (07:25)
[2017-08-13] MEDS: FUROSEMIDE 20 MG TAB PO SCH (07:26)
[2017-08-13] MEDS: METHYLPREDNISOLONE IV 40 MG in SYRINGE 0 ML IV SCH ×2 (07:29→20:05)
[2017-08-13 08:38] LABS: HEMATOCRIT 43.7 % (42-52); HEMOGLOBIN 14.7 g/dL (14.0-18.0); IG# 0.04 K/uL (0.00-0.02); LYMPH % 6.8 %; MEAN CELL VOLUME 89.7 fL (80-100); MEAN CORPUSCULAR HEMOGLOBIN 30.2 pg (25-34); MEAN CORPUSCULAR HGB CONC 33.6 g/dl (32-36); MEAN PLATELET VOLUME 9.6 fL (7.4-10.4); MONO % 5.3 %; MONO ABS # 0.55 K/uL (0.11-0.59); NEUT % 87.5 %; NEUT ABS # 9.05 K/uL (1.4-6.5); PLATELET COUNT 231 K/uL (130-400); RED CELL DISTRIBUTION WIDTH CV 14.5 % (11.5-14.5); RED CELL DISTRIBUTION WIDTH SD 47.2 fL (36.4-46.3); WHITE BLOOD COUNT 10.34 K/uL (4.8-10.8)
[2017-08-13 08:58] LABS: CALCIUM 8.7 mg/dl (8.5-10.1); CREATININE 1.39 mg/dl (0.60-1.40); PHOSPHORUS 3.4 mg/dl (2.5-4.9); POTASSIUM 3.5 mmol/L (3.5-5.1)
[2017-08-13] MEDS: DOXYCYCLINE IV 100 MG in DEXTROSE 5% 100ML 100 ML IV SCH ×2 (09:01→20:04)
[2017-08-13] MEDS: ALBUTEROL 0.083% NEBU SOLN 3 ML VIAL INH PRN (11:12)
[2017-08-13] MEDS ORDERED: FUROSEMIDE INJ 20 MG in SYRINGE 0 ML IV ONE (11:45)
--- NOTE | 2017-08-13 12:53 | PULMONARY PROGRESS NOTE ---
DATE: 08/13/2017 TIME: 12:20 p.m. SUBJECTIVE: The patient feels about the same. He remains short of breath with any significant exertion. There has been no significant improvement or worsening since yesterday. His appetite is good. He has noticed some increase in his peripheral edema. OBJECTIVE: GENERAL: The patient looked comfortable. His was present during this evaluation. VITAL SIGNS: Temperature is 36.9. HEART: Heart rate is 76 per minute. The rhythm is regular. Blood pressure 117/59. LUNGS: Auscultation of the lung mcwilliams reveals diffuse rales bilaterally. This is similar to prior. Oxygen saturation on 6 liters was 88% at the time of my evaluation. Respiratory rate was 18 breaths per minute. ABDOMEN: Soft and nontender. EXTREMITIES: Shows +2 edema. 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 The immunophenotype is nonspecific. It does not stain with markers common to most carcinomas of the lung, upper or lower GI tract, prostate, breast, thyroid, or kidney. ASSESSMENT AND PLAN: I did discuss the results with the patient and his . I explained to them that there appears to be a definite malignancy that I suspect is from the lung, but we cannot say that with certainty that the lung is the primary. We need to have medical oncology to evaluate the patient. Hopefully, they can give us guidance as to other testing or what approach they would do considering this scenario. Regarding the edema, perhaps support stockings would be of benefit. I did discuss this with Dr. Terrell Steele.
--- NOTE | 2017-08-13 14:37 | Progress Note ---
Subjective Date of Service: August 13, 2017. Subjective Pt evaluation today including: conversation w/ patient, conversation w/ family , physical exam, chart review, lab review, review of studies, conversation w/ change consultant, review of inpatient medication list Need 5-6 L NC O2 to maintain pulse ox at 88 or 89%, Pulse sat significant drop when up and walk Mild labored breathing, otherwise sitting up in chair, mild cough no sputum, denies chest pain, but has trace lower extremity swelling Mild right side chest wall pain at the point of thoracentesis Rn reported has possible A. fib, comes and goes in the monitor Problem List Medical Problems: (1) Hypoxemia Status: Acute (2) Pleural effusion, right Status: Acute (3) Pneumoconiosis Status: Chronic (4) Pneumonia Status: Acute Review of Systems Constitutional: + weakness, + fatigue, No fever, No chills, No sweats, No weight loss, No problem reported Eyes: No worsening of vision, No eye pain, No redness, No discharge, No diplopia ENT: No hearing loss, No unusual epistaxis, No nasal symptoms, No sore throat, No tinnitus, No dental problems, No trouble swallowing Respiratory: + cough, + shortness of breath, + dyspnea on exertion, No sputum, No wheezing, No dyspnea at rest, No hemoptysis Cardiac: + edema, No chest pain, No orthopnea, No PND, No claudication, No palpitations Abdomen: No pain, No nausea, No vomiting, No diarrhea, No constipation Musculoskeletal: No joint pain, No muscle pain, No swelling, No calf pain Male : No dysuria, No urinary frequency, No incontinence, No nocturia more than once/night, No slowing stream, No hematuria Neurologic: No memory loss, No paralysis, No weakness, No numbness/tingling, No vertigo, No balance problems Psychiatric: No depression symptoms, No anhedonism, No anxiety, No insomnia, No substance abuse Heme: No abnormal bleeding/bruising, No clotting problems, No swollen lymph nodes, No night sweats Endo: No fatigue, No excessive thirst, No excessive urination Skin: No rash, No itch, No new/changing skin lesions, No color change, No bleeding Objective Vital Signs Date Time Temp Pulse Resp B/P (MAP) Pulse Ox O2 Delivery O2 Flow Rate FiO2 08/13/17 14:18 80 16 91 Nasal Cannula 6.0 08/13/17 12:00 Nasal Cannula 6.0 Humidified Oxygen 08/13/17 11:30 37.0 73 16 138/79 (98) 88 Nasal Cannula 5.0 Humidified Oxygen 08/13/17 11:12 62 16 86 Nasal Cannula 6.0 08/13/17 08:00 Nasal Cannula 6.0 Humidified Oxygen 08/13/17 07:14 36.9 55 18 117/59 (78) 89 Nasal Cannula 7.0 08/13/17 06:46 62 16 86 Nasal Cannula 6.0 08/13/17 06:17 89 Humidified Oxygen 6.0 08/13/17 04:00 CPAP 6.0 08/13/17 03:25 37.0 68 16 136/65 (88) 94 CPAP 6.0 08/13/17 01:53 62 16 90 BiPAP/CPAP 6.0 08/13/17 00:01 93 CPAP 6.0 08/12/17 23:37 37.0 61 18 120/57 (78) 93 CPAP 08/12/17 20:00 Nasal Cannula 6.0 08/12/17 19:46 37.0 81 18 139/62 (87) 90 Nasal Cannula 6.0 08/12/17 18:57 77 14 93 Nasal Cannula 6.0 08/12/17 16:00 Nasal Cannula 5.0 08/12/17 15:58 36.7 88 22 165/59 (94) 89 Oxymask 10.0 Physical Exam General Appearance: WD/WN, no apparent distress, + obese (Mild), + pertinent finding (Mild uncomfortable) Eyes: normal inspection, PERRL, EOMI, sclerae normal ENT: normal ENT inspection, hearing grossly normal, pharynx normal Neck: supple, no adenopathy, thyroid normal, no JVD, no carotid bruits, trachea midline Respiratory/Chest: chest non-tender, no respiratory distress, no accessory muscle use, + decreased breath sounds Cardiovascular: regular rate, rhythm, no gallop, no JVD, no murmur, + pertinent finding (Trace edema) Abdomen: normal bowel sounds, non tender, soft, no organomegaly, no pulsatile mass Extremities: normal range of motion, non-tender, normal inspection, no pedal edema, no calf tenderness, normal capillary refill, pelvis stable 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, no motor/sensory deficits, alert, normal mood/affect, oriented x 3 Skin: normal color, warm/dry, no rash Lymphatic: no adenopathy Laboratory Results Last 24 Hours Test 08/13/17 05:58 08/13/17 08:23 Activated Partial Thromboplast Time 29.6 SECONDS Partial Thromboplastin Ratio 1.1 White Blood Count 10.34 K/uL Red Blood Count 4.87 M/uL Hemoglobin 14.7 g/dL Hematocrit 43.7 % Mean Corpuscular Volume 89.7 fL Mean Corpuscular Hemoglobin 30.2 pg Mean Corpuscular Hemoglobin Concent 33.6 g/dl Platelet Count 231 K/uL Mean Platelet Volume 9.6 fL Neutrophils (%) (Auto) 87.5 % Lymphocytes (%) (Auto) 6.8 % Monocytes (%) (Auto) 5.3 % Eosinophils (%) (Auto) 0.0 % Basophils (%) (Auto) 0.0 % Neutrophils # (Auto) 9.05 K/uL Lymphocytes # (Auto) 0.70 K/uL Monocytes # (Auto) 0.55 K/uL Eosinophils # (Auto) 0.00 K/uL Basophils # (Auto) 0.00 K/uL RDW Standard Deviation 47.2 fL RDW Coefficient of Variation 14.5 % Immature Granulocyte % (Auto) 0.4 % Immature Granulocyte # (Auto) 0.04 K/uL Sodium Level 140 mmol/L Potassium Level 3.5 mmol/L Chloride Level 105 mmol/L Carbon Dioxide Level 28 mmol/L Anion Gap 7.0 mmol/L Blood Urea Nitrogen 27 mg/dl Creatinine 1.39 mg/dl Est Creatinine Clear Calc Drug Dose 59.3 ml/min Estimated GFR () 60.4 Estimated GFR (Non- 52.1 BUN/Creatinine Ratio 19.1 Random Glucose 145 mg/dl Calcium Level 8.7 mg/dl Phosphorus Level 3.4 mg/dl Magnesium Level 1.9 mg/dl Assessment and Plan 66 y/o M Hx ILD, 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 Was admitted because of acute respiratory failure Acute respiratory failure with hypoxia on chronic respiratory failure, had increased O2 requirements, increased work of breathing Still need oxygen 5-6 L which is significant more when compared to his baseline which is 2-3L NC hypoxia due to malignancy, COPD, pneumoconiosis, pneumonia, pleural effusion Today's cytology report of cancer cells in pleural fluid Continue current care, treat and using antibiotic for possible pneumonia, nebulizer treatment, and steroid, titrate oxygen as tolerated Right sided pleural effusion: thoracentesis on 08/08, 900cc out has FDG avid right sided lung nodule that patient has declined EBUS as outpatient, not currently a candidate for any type of bronchoscopy Multifocal pneumonia: treat with Zosyn, Vancomycin and Doxycycline, day 6 Zithromax stopped due to QT prolongation continue Solu Medrol 40mg q8 for now, hold on titrating down until he shows more clinical improvement hold on plans to taper abx since oxygen requirements worse Legionella negative, Mycoplasma IgM negative, D beta-glucan pending Discussed with manager skilled, has requested oncology consult, Type II NSTEMI due to demand ischemia, manage medically, echo shows preserved EF , per cardiology, no further ischemic work up at this time Possible paroxysmal A. fib, checking EKG, request cardiology to follow-up, Acute kidney injury, likely prerenal with infection, dehydration -- resolved, Cr down to 1.3 yesterday, up slightly to 1.39 today, he is back to baseline anti-GBM sent out - negative resume diuretics yesterday Pneumoconiosis: palliative care consulted for medical care possible proximal A. fib which is possible new, has request cardiology service to continue follow-up Right lung nodule: FDG avid on PET scan in the past has refused EBUS in the past certainly not a candidate for bronchoscopy given current respiratory status will see if pleural fluid analysis provides a diagnosis - still pending today Full code - heparin prophylaxis keep on tele Continued [facility] stay due to: multiple IV medications needed Discharge planning: uncertain
[2017-08-13] MEDS: MAGNESIUM OXIDE 400 MG TAB PO SCH (21:03)
[2017-08-13] MEDS: ASPIRIN 81 MG ECTAB PO SCH (21:03)
[2017-08-14] VITALS (10 sets, daily range): BP systolic 126–154; BP diastolic 53–66; PULSE 57–83; TEMP 36.4–37; O2SAT 86–93
[2017-08-14] MEDS: ALBUT/IPRATROP 3MG/0.5MG NEB 3 ML VIAL INH SCH ×4 (03:05→18:56)
[2017-08-14 04:22] LABS: HEMATOCRIT 40.9 % (42-52); HEMOGLOBIN 13.8 g/dL (14.0-18.0); IG# 0.02 K/uL (0.00-0.02); LYMPH ABS # 0.53 K/uL (1.2-3.4); MEAN CELL VOLUME 88.7 fL (80-100); MEAN CORPUSCULAR HEMOGLOBIN 29.9 pg (25-34); MEAN CORPUSCULAR HGB CONC 33.7 g/dl (32-36); MEAN PLATELET VOLUME 9.9 fL (7.4-10.4); MONO % 4.6 %; MONO ABS # 0.35 K/uL (0.11-0.59); NEUT % 88.1 %; PLATELET COUNT 189 K/uL (130-400); RED CELL DISTRIBUTION WIDTH CV 14.7 % (11.5-14.5); RED CELL DISTRIBUTION WIDTH SD 47.2 fL (36.4-46.3)
[2017-08-14 04:46] LABS: CALCIUM 8.3 mg/dl (8.5-10.1); CREATININE 1.48 mg/dl (0.60-1.40); POTASSIUM 4.3 mmol/L (3.5-5.1)
[2017-08-14] MEDS ORDERED: OPTIRAY 320 IV PRN ×2 (07:45→12:45)
--- NOTE | 2017-08-14 07:48 | DIAGNOSTIC IMAGING REPORT ---
CHEST ONE VIEW PORTABLE CLINICAL HISTORY: Pneumonia. Hypoxia. COMPARISON STUDY: Chest CT August 06, 2017 and chest radiograph August 12, 2017. FINDINGS: Emphysema is noted. There is no pneumothorax. A small right pleural effusion is noted. Right upper to mid lung airspace opacity persists. There is mild interstitial thickening. Cardiomediastinal silhouette is stable. IMPRESSION: 1. No significant change in right lung airspace opacity which favors pneumonia. Continued radiographic follow-up to ensure resolution is recommended. 2. Emphysema. 3. Persistent interstitial thickening which may reflect an infectious process or superimposed pulmonary edema. 4. Small right pleural effusion.. Electronically signed by: Nelson Pringle M.D. 08/14/2017 7:47 AM Dictated Date/Time: 08/14/2017 7:43 AM
[2017-08-14] MEDS: PIPERACILL/TAZOBAC IV 4.5 GM in DEXTROSE 5% 100ML 100 ML IV SCH (08:11)
[2017-08-14] MEDS: METHYLPREDNISOLONE IV 40 MG in SYRINGE 0 ML IV SCH (08:15)
[2017-08-14] MEDS: FUROSEMIDE 40 MG TAB PO SCH (08:15)
[2017-08-14] MEDS: HYDROCHLOROTHIAZIDE 25 MG TAB PO SCH (08:16)
[2017-08-14] MEDS: VALSARTAN 80 MG TAB PO SCH (08:17)
[2017-08-14] MEDS: ATORVASTATIN 40 MG TAB PO SCH (08:17)
[2017-08-14] MEDS: POTASSIUM CHLORIDE 20 MEQ TABCR PO SCH (08:17)
[2017-08-14] MEDS: PANTOprazole SOD 40 MG TAB PO SCH (08:17)
[2017-08-14] MEDS: HEPARIN SOD 5000 UNIT/0.5 ML CARP SQ SCH ×3 (08:20→23:38)
[2017-08-14] MEDS: PREGABALIN 150 MG CAP PO SCH ×2 (08:28→21:04)
[2017-08-14] MEDS: DOXYCYCLINE IV 100 MG in DEXTROSE 5% 100ML 100 ML IV SCH (08:28)
--- NOTE | 2017-08-14 09:45 | PULMONARY PROGRESS NOTE ---
DATE: 08/14/2017 TIME: 9:05 a.m. SUBJECTIVE: The patient feels about the same. He remains short of breath with any significant exertion, but nothing acute. He is not coughing much. Appetite remains good. Dr. Whitman was here to see the patient this morning from oncology department. I discussed the case with him. It should be noted the patient did just have a PET scan in early June. OBJECTIVE: GENERAL: The patient looks comfortable. VITAL SIGNS: However, his saturation currently is only 80% despite being on 6 L. He states he was just moving around in bed a bit. Temperature is 36.7. There has been no fevers. HEART: Heart rate is 64 per minute. The rhythm is regular, but with occasional PVCs noted on tele. Blood pressure 137/53. LUNGS: Auscultation of the lung mcwilliams reveals a faint wheeze on the right. Scattered rales are heard. Respiratory rate is 20. The saturation is low as noted. EXTREMITIES: Reveal +1 edema of both lower extremities. There was no cyanosis or clubbing. LABORATORY DATA: Arterial blood gas done this morning on 6 L showed a pH of 7.48, pCO2 37, pO2 53. Electrolytes show sodium 142, potassium 4.3, chloride 105, bicarb 33. BUN is 31 with a creatinine of 1.48. CEA level is elevated at 10. Free PSA was 0.12. PSA is only 0.625. Chest x-ray today shows no significant change in the right upper lung field airspace opacity. Although the appearance is that of pneumonia considering the finding of malignant cells in the pleural fluid and considering there has been no response to antibiotic therapy, it would be suspicious that this may represent neoplasm. Small effusion was noted. IMPRESSIONS: 1. Eopkw-em-whiprsv respiratory failure with hypoxia. 2. Malignant right pleural effusion. 3. Right upper lobe consolidation -- suspecting this may represent neoplasm. 4. COPD/COPD. 5. Obstructive sleep apnea with complex sleep apnea. COMMENTS AND RECOMMENDATIONS: The patient continues with hypoxia. I suspect this is not going to improve much. He has been on antibiotics for approximately 1 week. I believe can consider stopping the antibiotics after 7 days, particularly in light of the lack of response and with the knowledge that he has a malignant pleural effusion. Thus, they may be able to be stopped after today depending upon the date they were actually started. I believe the steroids can be changed to oral starting tomorrow. Would give prednisone 60 mg daily. When the patient goes home, we will need to make arrangements for him to get a different concentrator that goes up to 10 L. This would have to be worked out through his current home care company.
--- NOTE | 2017-08-14 10:27 | ONCOLOGY CONSULTATION ---
DATE OF CONSULTATION: 08/14/2017 Medical oncology consultation. REASON FOR CONSULTATION: Malignant pleural effusion. HISTORY OF PRESENT ILLNESS: Thompson is a pleasant 66-year-old gentleman with multiple medical comorbid issues including oxygen-dependent COPD and diastolic CHF, was admitted to [facility] on 08/07/2017 with progressive shortness of breath and dyspnea on exertion over the past several weeks. Patient relates having difficulty with breathing approximately 2-3 weeks prior to admission with marked decreased exercise tolerance. He denies any overt chest pain. However, oxygen demand significantly increased with minimal exercise. Patient underwent CT of the chest prior to admission revealing consolidations in the right upper lobe and superior segment of the right lower lobe concerning for pneumonia. Since admission, patient has undergone serial chest x-rays daily. The patient also underwent a right-sided thoracentesis performed by Dr. Heller yielding 900 mL of yellow colored fluid. Pathology believes fluid represents metastatic adenocarcinoma; however, primary is yet to be revealed. The interpreting pathologist suggests the tumor does not stain for lung, upper or lower gastrointestinal tract, prostate, breast, kidney or thyroid. Further staging is necessary and would prefer PET scan to be done as outpatient. Clinically, patient for the most part has maintained a decent performance status without evidence of anorexia/weight loss. He denies any skeletal pain at this time. Primary service is requesting a consultation in regards to malignant pleural effusion evaluation and management. PAST MEDICAL HISTORY: Again, significant for coal miners' pneumoconiosis, COPD (oxygen dependent), diastolic CHF, GERD, obstructive sleep apnea and hyperlipidemia. The patient also has prior history of stroke and carotid stenosis. MEDICATIONS: Prior to admission include Ventolin 2 puffs inhaled q. 4 hours, aspirin 81 mg p.o. daily, Nexium 40 mg p.o. daily, Advair Diskus 500/50 one puff inhaled b.i.d., Lasix 20 mg p.o. daily, DuoNeb 3 mL inhaled q. 4 hours, 1 multivitamin per day, Lyrica 150 mg p.o. daily, simvastatin 10 mg p.o. at bedtime, Incruse Ellipta 1 puff inhaled daily and Diovan 320/25 mg 1 tablet p.o. daily. ALLERGIES: No known drug allergies. SOCIAL HISTORY: The patient is . He is a reformed smoker. Worked in the [employer] most of his life. He is a nondrinker. FAMILY HISTORY: Father succumbed to lung cancer and patient believes he has uncles on his paternal side also with a nonspecific cancer diagnosis. His mother succumbed to a CVA. REVIEW OF SYSTEMS: GENERAL: Most notably for progressive shortness of breath, nonproductive cough and dyspnea on exertion. Denies fevers, chills or sweats. He is not anorexic or losing weight. SKIN: No rashes or lesions. No history of dermatoses. HEENT: Denies headaches, lightheadedness or dizziness. No acute visual or hearing deficits. No sinus symptoms, sore throat or dysphagia. LYMPH: No history of lymphadenopathy. CARDIAC: Positive history of CHF. No current angina or palpitations. PULMONARY: Again, oxygen-dependent COPD. Positive for right-sided malignant pleural effusion. GASTROINTESTINAL: Negative for abdominal pain, nausea, vomiting, diarrhea or constipation, hematochezia or melanotic stools. GENITOURINARY: No hematuria, dysuria, or urinary incontinence. PSYCHIATRIC: Negative for anxiety, depression or psychoses. NEUROLOGIC: Positive history of stroke. No history of migraine headaches or seizure disorder. HEMATOLOGIC: Negative for anemia, thrombophilia or bleeding diathesis by history. PHYSICAL EXAMINATION: GENERAL: Very pleasant 66-year-old gentleman, awake, alert and appropriate, in no acute distress. VITAL SIGNS: Temperature 36.7, pulse 60, respiratory rate 19, blood pressure 137/53. SKIN: Warm, dry, noncyanotic without petechiae, rash or ecchymosis. HEAD: Atraumatic, normocephalic. EYES: PERRLA, EOMI. Sclerae nonicteric. No conjunctival injection. NOSE: Nares are patent without rhinorrhea or discharge. MOUTH AND THROAT: Throat clear. Tongue midline. Mucous membranes are moist. No buccal lesions or ulcerations. NECK: Supple. HEART: Regular rate and rhythm. No clicks, rubs or murmurs. LUNGS: Pulmonary auscultated examination patchy airspace activity, could not appreciate any rales or rhonchi per se. There is blunting at bases bilaterally. ABDOMEN: Soft, nontender, nondistended, without palpable hepatosplenomegaly. EXTREMITIES: No calf tenderness or swelling. There is mild pedal edema noted. Some musculoskeletal strength and pulses are equal. NEUROLOGICALLY: He is awake, alert and oriented x3. Cranial nerves II-XII are grossly intact. LABORATORY DATA: Sodium 142, potassium 4.3, chloride 105, carbon dioxide 33, BUN 31, creatinine 1.48. WBC count 7600, hemoglobin 13.8, platelet count 189,000. IMPRESSION: 1. Malignant right pleural effusion. 2. Oxygen-dependent chronic obstructive pulmonary disease. 3. Elevated troponin. 4. Acute kidney injury. 5. History of diastolic congestive heart failure. PLAN: Mr. Ratliff is a pleasant, but an unfortunate 66-year-old gentleman who was admitted to [facility] on 08/07/2017 with subacute onset shortness of breath and dyspnea on exertion. Patient was worked up extensively, which included serial chest x-rays and previous PET scan. Ultimately underwent thoracentesis yielding approximately 900 mL of fluid which is positive for adenocarcinoma, primary unknown. We will ask pathology to perform further staining as to characterize the origin. I cannot give formal recommendations until a diagnosis is confirmed. I spoke briefly to pulmonology service. We will continue to treat him for presumed pneumonia and continue to manage pleural fluid should it reaccumulate. His performance status overall is reasonable and see no reason not to pursue salvage chemotherapy. We will review a PET scan previously done and may consider repeat that depending on how long ago the original study was performed. We will continue to follow Mr. Ratliff periodically throughout his hospital stay and ultimately plan to reconvene as an outpatient to discuss salvage chemotherapy. Thank you very much for allowing me to participate in his care. If you have any questions or concerns, feel free to contact me at any time.
[2017-08-14] MEDS: VANCOMYCIN IV 1,250 MG in SODIUM CHLORIDE 0.9% 250ML 250 ML IV SCH (10:30)
--- NOTE | 2017-08-14 12:55 | DIAGNOSTIC IMAGING REPORT ---
CT SCAN OF THE ABDOMEN AND PELVIS WITH IV CONTRAST CLINICAL HISTORY: Pleural malignancy. Assess for primary neoplasm. COMPARISON STUDY: Renal ultrasound dated 08/07/2017. PET/CT dated 07/02/2017. TECHNIQUE: Following the IV administration of 94 cc of Optiray 320, CT scan of the abdomen and pelvis is performed from the lung bases to the proximal femora. Images are reviewed in the axial, sagittal, and coronal planes. IV contrast was administered without complication. A dose lowering technique was utilized adhering to the principles of ALARA. CT DOSE: 1013.50 mGycm FINDINGS: Lung bases: The heart is top normal in size and without pericardial effusion. There is a small right pleural effusion. Emphysema with possible superimposed chronic interstitial lung disease is seen at both lung bases. Diffuse intralobular septal thickening is noted throughout the lower lobes. There is a small hiatal hernia. Liver: The contrast-enhanced liver is normal in size, contour, and attenuation. There is no intrahepatic biliary ductal dilatation. The hepatic veins are patent. There are coronary artery calcifications. 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 There is trace peripheral thrombus suspected within the distal left portal vein seen on axial image #71. The main portal vein and the central portal venous branches are clear. Gallbladder: Unremarkable. Spleen: Normal in size and attenuation. Pancreas: There is asymmetric atrophy of the distal pancreas. The gland enhances homogeneously and there is no pancreatic ductal dilatation. A coarse calcification is noted in the region of the pancreatic head. Adrenal glands: Unremarkable. Kidneys: The contrast enhanced kidneys are atrophic and without hydronephrosis. Foci of cortical scarring are seen bilaterally. A cyst or calyceal diverticulum in the interpolar right kidney containing a calcification is seen on image #166 and measures 1.6 cm. A subcentimeter cortical hypodensity in the left upper pole likely represents a cyst is too small for definitive characterization. The kidneys enhance symmetrically. Abdominal vasculature: The abdominal aorta is normal in course and caliber noting advanced atherosclerotic calcification. Bowel: There is mild colonic fecal retention. No bowel obstruction is seen. The appendix is well-visualized and normal. Peritoneum: There is no intraperitoneal free air or abdominal ascites. There is a small fat-containing umbilical hernia. Lymphadenopathy: None. Pelvic viscera: The bladder wall appears mildly thickened and trabeculated suggesting chronic outlet obstruction. There is median lobe hypertrophy of the prostate gland. Skeletal structures: The skeletal structures are osteopenic. Moderate lumbosacral spondylosis is observed. There are postoperative changes from L3 -L5 spinal fusion. No lytic or blastic lesions are seen. Soft tissues: There is mild body wall edema. IMPRESSION: 1. There is no evidence of primary neoplasm identified in the abdomen or pelvis. No primary neoplasm was shown in the abdomen or pelvis on the recent PET/CT. 2. There is a small right pleural effusion. 3. Emphysema with possible superimposed chronic interstitial lung disease is noted at the lung bases. There is diffuse intralobular septal thickening. Clinical correlation will be required. 4. 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 There is also trace thrombus seen within the distal left portal vein. 5. There is asymmetric atrophy of the mid to distal pancreas. No discrete mass lesion is seen and there was no abnormal FDG activity localizing to the pancreas on the recent PET examination. This finding is likely chronic. 6. Additional findings as above. Electronically signed by: Amadou Hair M.D. 08/14/2017 12:54 PM Dictated Date/Time: 08/14/2017 12:33 PM
[2017-08-14] MEDS ORDERED: SODIUM CHLORIDE 0.9% 1000ML 1,000 ML IV SCH (14:45)
--- NOTE | 2017-08-14 14:49 | Progress Note ---
Subjective Date of Service: August 14, 2017. Subjective Pt evaluation today including: conversation w/ patient, conversation w/ family , physical exam, chart review, lab review, review of studies, conversation w/ [employer] management consultant Generally feeling tired, still difficulty breathing and require high concentrated oxygen as 7 L/min, otherwise no fever and chill, deny chest pain palpitation, no obvious edema Problem List Medical Problems: (1) Hypoxemia Status: Acute (2) Pleural effusion, right Status: Acute (3) Pneumoconiosis Status: Chronic (4) Pneumonia Status: Acute Review of Systems Constitutional: + weakness, + fatigue, No fever, No chills, No sweats, No weight loss, No problem reported Eyes: No worsening of vision, No eye pain, No redness, No discharge, No diplopia ENT: No hearing loss, No unusual epistaxis, No nasal symptoms, No sore throat, No tinnitus, No dental problems, No trouble swallowing Respiratory: + cough, + problem reported (Need oxygen support 6.5 LPm), No sputum, No wheezing, No shortness of breath, No dyspnea on exertion, No dyspnea at rest, No hemoptysis Cardiac: No chest pain, No orthopnea, No PND, No edema, No claudication, No palpitations Abdomen: No pain, No nausea, No vomiting, No diarrhea, No constipation Musculoskeletal: No joint pain, No muscle pain, No swelling, No calf pain Male : No dysuria, No urinary frequency, No incontinence, No nocturia more than once/night, No slowing stream, No hematuria Neurologic: No memory loss, No paralysis, No weakness, No numbness/tingling, No vertigo, No balance problems Psychiatric: No depression symptoms, No anhedonism, No anxiety, No insomnia, No substance abuse Heme: No abnormal bleeding/bruising, No clotting problems, No night sweats Endo: No fatigue, No excessive thirst, No excessive urination Skin: No rash, No itch, No new/changing skin lesions, No color change, No bleeding Objective Vital Signs Date Time Temp Pulse Resp B/P (MAP) Pulse Ox O2 Delivery O2 Flow Rate FiO2 08/14/17 14:05 70 20 88 Nasal Cannula 6.0 08/14/17 12:00 Nasal Cannula 6.0 08/14/17 11:07 36.8 80 20 137/65 (89) 91 Oxymask 8.0 08/14/17 08:00 Nasal Cannula 6.0 08/14/17 07:00 64 20 86 Nasal Cannula 6.0 08/14/17 06:45 36.7 60 19 137/53 (81) 88 Nasal Cannula 6.0 08/14/17 04:00 CPAP 6.0 08/14/17 03:54 37.0 70 19 127/65 (85) 92 CPAP 08/14/17 03:05 57 14 92 BiPAP/CPAP 6.0 08/14/17 00:01 CPAP 6.0 08/13/17 23:36 37.1 70 23 147/70 (95) 93 CPAP 08/13/17 20:00 Nasal Cannula 6.0 08/13/17 19:46 37.1 81 20 123/63 (83) 90 Nasal Cannula 6.0 08/13/17 19:09 67 18 92 Nasal Cannula 6.0 08/13/17 16:40 91 Nasal Cannula 6.0 Physical Exam General Appearance: WD/WN, no apparent distress, + obese Eyes: normal inspection, PERRL, EOMI, sclerae normal ENT: normal ENT inspection, hearing grossly normal, pharynx normal Neck: supple, no adenopathy, thyroid normal, no JVD, no carotid bruits, trachea midline Respiratory/Chest: chest non-tender, normal breath sounds, no respiratory distress, no accessory muscle use, + decreased breath sounds Cardiovascular: regular rate, rhythm, no edema, no gallop, no JVD, no murmur Abdomen: normal bowel sounds, non tender, soft, no organomegaly, no pulsatile mass Extremities: normal range of motion, non-tender, normal inspection, no pedal edema, no calf tenderness, normal capillary refill, pelvis stable 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iatric: supervisor laboratory II-XII nml as tested, no motor/sensory deficits, alert, normal mood/affect, oriented x 3 Skin: normal color, warm/dry, no rash Lymphatic: no adenopathy Laboratory Results Last 24 Hours Test 08/14/17 03:59 08/14/17 07:38 White Blood Count 7.60 K/uL Red Blood Count 4.61 M/uL Hemoglobin 13.8 g/dL Hematocrit 40.9 % Mean Corpuscular Volume 88.7 fL Mean Corpuscular Hemoglobin 29.9 pg Mean Corpuscular Hemoglobin Concent 33.7 g/dl Platelet Count 189 K/uL Mean Platelet Volume 9.9 fL Neutrophils (%) (Auto) 88.1 % Lymphocytes (%) (Auto) 7.0 % Monocytes (%) (Auto) 4.6 % Eosinophils (%) (Auto) 0.0 % Basophils (%) (Auto) 0.0 % Neutrophils # (Auto) 6.70 K/uL Lymphocytes # (Auto) 0.53 K/uL Monocytes # (Auto) 0.35 K/uL Eosinophils # (Auto) 0.00 K/uL Basophils # (Auto) 0.00 K/uL RDW Standard Deviation 47.2 fL RDW Coefficient of Variation 14.7 % Immature Granulocyte % (Auto) 0.3 % Immature Granulocyte # (Auto) 0.02 K/uL Sodium Level 142 mmol/L Potassium Level 4.3 mmol/L Chloride Level 105 mmol/L Carbon Dioxide Level 33 mmol/L Anion Gap 4.0 mmol/L Blood Urea Nitrogen 31 mg/dl Creatinine 1.48 mg/dl Est Creatinine Clear Calc Drug Dose 55.7 ml/min Estimated GFR () 55.9 Estimated GFR (Non- 48.3 BUN/Creatinine Ratio 20.9 Random Glucose 146 mg/dl Calcium Level 8.3 mg/dl Phosphorus Level 4.0 mg/dl Magnesium Level 2.1 mg/dl Arterial Blood pH 7.48 Arterial Blood Partial Pressure CO2 37 mmHg Arterial Blood Partial Pressure O2 53 mm/Hg Arterial Blood HCO3 27 mmol/L Arterial Blood Oxygen Saturation 85.9 % Arterial Blood Base Excess 3.3 mEq/L Arterial Blood Gas Delivery 6 L Diallo Test POS Carcinoembryonic Antigen 10.0 ng/ml Prostate Specific Antigen 0.625 ng/ml Free Prostate Specific Antigen 0.12 ng/ml Percent Free Prostate Specific Ag % Assessment and Plan 66 y/o M Hx ILD, 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 Was admitted because of acute respiratory failure Acute respiratory failure with hypoxia on chronic respiratory failure, had increased O2 requirements, increased work of breathing. Currently is in 7 L/min of NC O2 significant more when compared to his baseline which is 2-3L NC hypoxia due to malignancy, COPD, pneumoconiosis, pneumonia, pleural effusion Possible malignancy, source of melena and is unknown, this is from the cytology of right thoracentesis resolved Continue current care, treat and using antibiotic for possible pneumonia, nebulizer treatment, and steroid, titrate oxygen as tolerated Right sided pleural effusion: thoracentesis on 08/08, 900cc out has FDG avid right sided lung nodule that patient has declined EBUS as outpatient, not currently a candidate for any type of bronchoscopy Multifocal pneumonia: treat with Zosyn, Vancomycin and Doxycycline, day 7, will stop automatically today Zithromax stopped due to QT prolongation continue Solu Medrol 40mg q8 for now, will change oral 60 mg p.o. every 8 hours hold on plans to taper abx since oxygen requirements worse Legionella negative, Mycoplasma IgM negative, D beta-glucan pending Discussed with inside sales lead, has requested oncology consult, Type II NSTEMI due to demand ischemia, manage medically, echo shows preserved EF , per cardiology, no further ischemic work up at this time Possible paroxysmal A. fib, checking EKG, request cardiology to follow-up, Acute kidney injury, likely prerenal with infection, dehydration -- resolved, Cr down to 1.3 yesterday, up slightly to 1.39 today, he is back to baseline anti-GBM sent out - negative resume diuretics yesterday Pneumoconiosis: palliative care consulted for medical care possible proximal A. fib which is possible new, has request cardiology service to continue follow-up Right lung nodule: FDG avid on PET scan in the past has refused EBUS in the past certainly not a candidate for bronchoscopy given current respiratory status will see if pleural fluid analysis provides a diagnosis - still pending today Full code - heparin prophylaxis keep on tele Continued [facility] stay due to: multiple IV medications needed Discharge planning: uncertain
[2017-08-14] MEDS: MAGNESIUM OXIDE 400 MG TAB PO SCH (21:04)
[2017-08-14] MEDS: ASPIRIN 81 MG ECTAB PO SCH (21:04)
[2017-08-15] VITALS (9 sets, daily range): BP systolic 118–152; BP diastolic 55–88; PULSE 61–99; TEMP 36.6–37; O2SAT 86–95
[2017-08-15] MEDS: ALBUT/IPRATROP 3MG/0.5MG NEB 3 ML VIAL INH SCH ×4 (01:47→19:20)
[2017-08-15 06:34] LABS: CALCIUM 8.3 mg/dl (8.5-10.1); CREATININE 1.25 mg/dl (0.60-1.40); PHOSPHORUS 2.8 mg/dl (2.5-4.9); POTASSIUM 3.6 mmol/L (3.5-5.1)
--- NOTE | 2017-08-15 09:18 | HEME/ONC PROGRESS NOTE ---
DATE: 08/15/2017 DIAGNOSES: 1. Malignant right pleural effusion. 2. Oxygen-dependent chronic obstructive pulmonary disease. 3. Elevated troponin. 4. Acute renal injury. 5. Diastolic congestive heart failure. SUBJECTIVE: I examined Mr. Ratliff at bedside again this morning. He continues on 6 liters oxygen via nasal cannula. Clinically, seems a bit better today and certainly would like to consider him for salvage chemotherapy. Unfortunately, I was not able to return to the floor to discuss options with his , but would be more than happy to touch base later on today. Mr. Ratliff is tolerating his diet, moving his bowels and is able to ambulate. Unfortunately, his respiratory status remains tenuous and believe failure to titrate oxygen downward is delaying his discharge presently. PHYSICAL EXAMINATION: GENERAL: He is in no acute distress. VITAL SIGNS: Temperature 37.0, pulse 86, respiratory rate 18, blood pressure 118/62. SKIN: Warm, dry, noncyanotic without petechia, rash or ecchymosis. HEENT: Oral mucosa without erythema or ulceration. NECK: Supple. HEART: Regular rate and rhythm. LUNGS: Surprisingly pretty clear bilaterally. ABDOMEN: Soft, nontender, nondistended. EXTREMITIES: Trace peripheral and pedal edema noted. NEUROLOGIC: Grossly intact. LABORATORY DATA: WBC count 7600, hemoglobin 13.8, platelet count 189,000. Sodium 143, potassium 3.6, chloride 106, carbon dioxide 32, BUN 29, creatinine 1.25. RADIOGRAPHIC DATA: CT scan of the abdomen and pelvis was performed yesterday revealing no evidence of metastatic disease again. Again, small right pleural effusion and emphysema are noted. Additionally, chronic-appearing thrombus of the splenic vein with large omental collaterals is also seen. IMPRESSION: 1. Adenocarcinoma, primary unknown. 2. Malignant right pleural effusion. 3. Oxygen-dependent chronic obstructive pulmonary disease. 4. Acute renal injury. 5. Diastolic congestive heart failure. PLAN: Mr. Ratliff is a pleasant, but unfortunate 66-year-old gentleman who was admitted to our facility on 08/07/2017 with subacute onset shortness of breath and dyspnea on exertion. Ultimately, he underwent thoracentesis yielding approximately 900 mL of fluid positive for adenocarcinoma, primary unknown. Again, we will ask Pathology to perform additional staining to establish origin if possible. In light of the pleural spread of disease, he is not amenable to surgery or radiation therapy at this point. Mr. Ratliff is agreeable to pursue salvage chemotherapy and again hopefully, will be able to provide recommendations upon confirmation of diagnosis. Agree with current medical management. If he is to be discharged in the next day or two, I would like to see him back in the office within the week to discuss treatment options. Thank you very much for allowing me to participate in his care. I have nothing further to add at this time and will officially sign off. Thank you very much.
[2017-08-15] MEDS: HYDROCHLOROTHIAZIDE 25 MG TAB PO SCH (10:19)
[2017-08-15] MEDS: FUROSEMIDE 40 MG TAB PO SCH (10:19)
[2017-08-15] MEDS: POTASSIUM CHLORIDE 20 MEQ TABCR PO SCH (10:19)
[2017-08-15] MEDS: PANTOprazole SOD 40 MG TAB PO SCH (10:20)
[2017-08-15] MEDS: ATORVASTATIN 40 MG TAB PO SCH (10:20)
[2017-08-15] MEDS: VALSARTAN 80 MG TAB PO SCH (10:20)
[2017-08-15] MEDS: PREGABALIN 150 MG CAP PO SCH ×2 (10:29→20:40)
[2017-08-15] MEDS: HEPARIN SOD 5000 UNIT/0.5 ML CARP SQ SCH ×3 (10:31→23:41)
[2017-08-15] MEDS ORDERED: FUROSEMIDE 20 MG TAB PO STA (12:44)
--- NOTE | 2017-08-15 12:53 | Progress Note ---
Subjective Date of Service: August 15, 2017. Subjective Pt evaluation today including: conversation w/ patient, conversation w/ family , physical exam, chart review, lab review, review of studies, conversation w/ engagement quality consultant, review of inpatient medication list Significant desaturation to 70% of pulse ox when up and walk to the restroom with 6 L oxygen One interesting sitting 6 L nasal cannula oxygen breathing possible to 93% Cough some white sputum, denies chest pain denies hemoptysis Problem List Medical Problems: (1) Hypoxemia Status: Acute (2) Pleural effusion, right Status: Acute (3) Pneumoconiosis Status: Chronic (4) Pneumonia Status: Acute Review of Systems Constitutional: No fever, No chills, No sweats, No weight loss, No weakness, No fatigue, No problem reported Eyes: No worsening of vision, No eye pain, No redness, No discharge, No diplopia ENT: No hearing loss, No unusual epistaxis, No nasal symptoms, No sore throat, No tinnitus, No dental problems, No trouble swallowing Respiratory: + cough, No sputum, No wheezing, No shortness of breath, No dyspnea on exertion, No dyspnea at rest, No hemoptysis Cardiac: + edema, No chest pain, No orthopnea, No PND, No claudication, No palpitations Abdomen: No pain, No nausea, No vomiting, No diarrhea, No constipation Musculoskeletal: No joint pain, No muscle pain, No swelling, No calf pain Male : No dysuria, No urinary frequency, No incontinence, No nocturia more than once/night, No slowing stream, No hematuria Neurologic: No memory loss, No paralysis, No weakness, No numbness/tingling, No vertigo, No balance problems Psychiatric: No depression symptoms, No anhedonism, No anxiety, No insomnia, No substance abuse Heme: No abnormal bleeding/bruising, No clotting problems, No swollen lymph nodes, No night sweats Endo: No fatigue, No excessive thirst, No excessive urination Skin: No rash, No itch, No new/changing skin lesions, No color change, No bleeding Objective Vital Signs Date Time Temp Pulse Resp B/P (MAP) Pulse Ox O2 Delivery O2 Flow Rate FiO2 08/15/17 10:51 36.6 77 20 134/88 (103) 91 Nasal Cannula 6.0 08/15/17 06:55 86 18 94 Nasal Cannula 6.0 08/15/17 06:50 37.0 61 19 118/62 (80) 92 Nasal Cannula 6.0 08/15/17 04:00 CPAP 08/15/17 03:52 36.7 81 19 129/55 (79) 95 CPAP 08/15/17 01:47 74 16 93 BiPAP/CPAP 6.0 08/14/17 23:59 CPAP 08/14/17 23:39 36.4 69 21 154/62 (92) 93 CPAP 08/14/17 20:00 Nasal Cannula 6.0 08/14/17 19:51 36.9 83 19 131/63 (85) 90 Nasal Cannula 6.0 08/14/17 18:56 63 16 92 Nasal Cannula 6.0 08/14/17 16:00 Nasal Cannula 6.0 08/14/17 15:58 36.9 76 19 126/66 (86) 88 Nasal Cannula 6.0 08/14/17 14:05 70 20 88 Nasal Cannula 6.0 Physical Exam General Appearance: WD/WN, no apparent distress, + obese Eyes: normal inspection, PERRL, EOMI, sclerae normal ENT: normal ENT inspection, hearing grossly normal, pharynx normal Neck: supple, no adenopathy, thyroid normal, no JVD, no carotid bruits, trachea midline Respiratory/Chest: chest non-tender, normal breath sounds, no respiratory distress, no accessory muscle use, + decreased breath sounds, + crackles Cardiovascular: regular rate, rhythm, no gallop, no JVD, no murmur Abdomen: normal bowel sounds, non tender, soft, no organomegaly, no pulsatile mass Extremities: normal range of motion, non-tender, normal inspection, no pedal edema, no calf tenderness, normal capillary refill, pelvis stable, + swelling (1 + edema) 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iatric: content analyst II-XII nml as tested, no motor/sensory deficits, alert, normal mood/affect, oriented x 3 Skin: normal color, warm/dry, no rash Lymphatic: no adenopathy Laboratory Results Last 24 Hours Test 08/15/17 05:53 Sodium Level 143 mmol/L Potassium Level 3.6 mmol/L Chloride Level 106 mmol/L Carbon Dioxide Level 32 mmol/L Anion Gap 5.0 mmol/L Blood Urea Nitrogen 29 mg/dl Creatinine 1.25 mg/dl Est Creatinine Clear Calc Drug Dose 66.9 ml/min Estimated GFR () 68.6 Estimated GFR (Non- 59.2 BUN/Creatinine Ratio 23.1 Random Glucose 93 mg/dl Calcium Level 8.3 mg/dl Phosphorus Level 2.8 mg/dl Magnesium Level 2.2 mg/dl Assessment and Plan 66 y/o M Hx ILD, 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 Was admitted because of acute respiratory failure Acute respiratory failure with hypoxia on chronic respiratory failure, Severe COPD Currently is in 6 L/min of [place] O2 significant more when compared to his baseline which is 2-3L NC hypoxia likely due to metastatic malignancy in lung , COPD, pneumonia, pleural effusion malignancy, 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, this is from the cytology of right thoracentesis for possible pneumonia, has completed full course of antibiotic treatment We will continue nebulizer treatment, and has switch Solu-Medrol to oral p.o. prednisone of steroid, titrate oxygen as tolerated Right sided pleural effusion: thoracentesis on 08/08, 900cc out has FDG avid right sided lung nodule that patient has declined EBUS as outpatient, not currently a candidate for any type of bronchoscopy had abdominal and pelvic CT done yesterday, there was no primary source of malignancy was identified Oncology and pulmonology on the case, has requested chest surgeon consultation, hopefully can get tissue sample from the chest to have tissue diagnosis Multifocal pneumonia: treat with Zosyn, Vancomycin and Doxycycline, has completed full course of treatment Zithromax stopped due to QT prolongation Possible diastolic CHF exacerbation with fluid overload, which is supported by right lung crackles and lower extremity edema, Type II NSTEMI due to demand ischemia, manage medically, echo shows preserved EF , per cardiology, no further ischemic work up at this time Possible paroxysmal A. fib, checking EKG, echo was done, results in below * 1. Normal LV size, mild concentric LVH. * 2. Normal LV systolic function. LVEF 55-60%. Abnormal septal motion consistent with RV volume/pressure overload. * 3. Mildly dilated RV with normal RV function. * 4. Compared with prior study on 03/05/2017: No significant changes. Continue oral Lasix, will watch renal function Acute kidney injury, resolving improved Full code - heparin prophylaxis keep on tele I discussed with patient and patient's family about patient's conditions, I told them patient's condition is guarded, I answered all questions to their satisfactions. The patient and family had multiple questions which were answered to their full satisfaction. Continued [facility] stay due to: multiple IV medications needed Discharge planning: uncertain
[2017-08-15] MEDS: ASPIRIN 81 MG ECTAB PO SCH (20:40)
[2017-08-15] MEDS: MAGNESIUM OXIDE 400 MG TAB PO SCH (20:40)
--- NOTE | 2017-08-15 20:59 | SURGICAL CONSULTATION ---
DATE OF CONSULTATION: 08/15/2017 REASON FOR CONSULTATION: Evaluate for tissue biopsy. HISTORY OF PRESENT ILLNESS: Thompson Ratliff is a 66-year-old man who is normally followed by Dr. Peter Heller from a pulmonary standpoint. The patient had a right pleural effusion, which was tapped 1 week ago today for 900 mL and this is a malignant effusion on the right. 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 He developed an infiltrative mass in his right upper lobe and he has also had a hypermetabolic nodule. He was offered an endobronchial ultrasound and an electromagnetic navigational bronchoscopy by Dr. Heller but declined; however, the patient has worsened. He is chronically hypoxic, but this has worsened. Dr. Whitman has asked me if I would see him for about a possible tissue diagnosis. It is important to note that this patient is essentially a respiratory cripple. He is on 6 liters of O2 and if he gets up and does any type of ambulation, his sats drop to the 70s and 80s. This is not new, but has worsened. He does have PET-avid mediastinal adenopathy and a mass in the right upper lobe, which is FDG avid. PAST MEDICAL HISTORY: 1. Malignant right pleural effusion in a patient with history of cigarette smoking in the distant past. 2. Chronic hypoxia. 3. Hyperlipidemia. 4. Gastroesophageal reflux disease. 5. Obstructive sleep apnea. 6. Carotid stenosis with apparent history of a cerebrovascular accident. PAST SURGICAL HISTORY: Right carotid endarterectomy in 2012. MEDICATIONS: (At home): 1. Diovan. 2. Zocor. 3. Ellipta. 4. Lyrica. 5. Lasix. 6. Advair Diskus. 7. Nexium. 8. Ventolin inhalers. 9. Aspirin. ALLERGIES: No known drug allergies. SOCIAL HISTORY: The patient worked in the [employer] for many years, but in his late 40s had to retire and has not smoked in the last 27 years and has not worked in the [employer] in over 20 years. 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 He lives at home with his . FAMILY MEDICAL HISTORY: His father of lung cancer and he believes that he had some uncles who from lung cancer. His children are healthy to his knowledge. REVIEW OF SYSTEMS: The patient has chronic history of being short of breath. He has just gotten worse recently. He denies fevers or chills. He has been quite short and he has increasing dyspnea on exertion. He does have a history of pneumoconiosis and coal dust exposure. He is better than he was when he was admitted 8 days ago, but he did not really respond to the thoracentesis as hoped. He has had some mild swelling in his legs recently, which has responded to increasing Lasix and compression garments. He currently gets so short of breath that he gets tachycardic. He has been worked up recently and found to have evidence of significant ischemia. He does have elevated filling pressures with some [id number] pulmonary hypertension. He denies any GI or symptoms. He has had no wound breakdown. PHYSICAL EXAMINATION: GENERAL: This is a 5 feet 9 inch, 221-pound male, who is awake, alert and oriented, on 6 liters of O2. He is conversant. VITAL SIGNS: His saturations are 86% on 6 liters right now. His heart rate is in the 70s and regular. HEENT: His extraocular movements are intact. His sclerae are pale, but anicteric. He has no nasolabial flattening. LUNGS: He really does not sound bad on auscultation. Despite hypoxia and lung disease, he has a few rales, but I do not really feel and hear any wheezing or rhonchi. HEART: He has a regular rate and rhythm of his heart. ABDOMEN: Soft and nontender. EXTREMITIES: He states that his legs have been swollen. I detect no edema in his lower extremities now and he has palpable pulses. He has no joint effusions. NEUROLOGIC: He is awake, alert, and oriented. ASSESSMENT AND PLAN: Significant hypoxia. I have discussed his case with Dr. Mike Robert, Dr. Thompson Heller, Dr. Michael Funez as well as Dr. Terrell Steele. His lungs are in terrible shape. I do not think he would do well with any type of general anesthesia nor does Dr. Heller. Putting him to sleep for an endobronchial ultrasound would be quite problematic. We may not be able to get him off the vent. In addition, he has studies pending on his pleural fluid for genomics. That should be back if it is not already. I think that would probably be more important than knowing the origin. He is not going to tolerate much with his lung function in his current state. In addition, I reviewed his CT scan while he has this infiltrative process, which is most likely cancer in his right upper lobe with some lymphadenopathy, he has not re-accumulated much fluid in his right pleural cavity. At this point, I would hold off offering him anything, but we will wait until his final genomic studies are back. NOLVIA
[2017-08-16] VITALS (10 sets, daily range): BP systolic 118–146; BP diastolic 58–69; PULSE 55–71; TEMP 36.1–37; O2SAT 88–96
[2017-08-16] MEDS: ALBUT/IPRATROP 3MG/0.5MG NEB 3 ML VIAL INH SCH ×4 (03:22→19:13)
[2017-08-16] MEDS: PREGABALIN 150 MG CAP PO SCH ×2 (07:47→20:55)
[2017-08-16] MEDS: ATORVASTATIN 40 MG TAB PO SCH (07:47)
[2017-08-16] MEDS: PANTOprazole SOD 40 MG TAB PO SCH (07:47)
[2017-08-16] MEDS: VALSARTAN 80 MG TAB PO SCH (07:48)
[2017-08-16] MEDS: FUROSEMIDE 20 MG TAB PO SCH (07:49)
[2017-08-16] MEDS: POTASSIUM CHLORIDE 20 MEQ TABCR PO SCH (07:49)
[2017-08-16] MEDS: HYDROCHLOROTHIAZIDE 25 MG TAB PO SCH (07:50)
[2017-08-16] MEDS: HEPARIN SOD 5000 UNIT/0.5 ML CARP SQ SCH ×2 (07:53→15:44)
[2017-08-16 09:13] LABS: CALCIUM 8.3 mg/dl (8.5-10.1); CREATININE 1.19 mg/dl (0.60-1.40); PHOSPHORUS 2.5 mg/dl (2.5-4.9); POTASSIUM 3.5 mmol/L (3.5-5.1)
--- NOTE | 2017-08-16 11:21 | PULMONARY PROGRESS NOTE ---
DATE: 08/16/2017 TIME: 10:35 a.m. SUBJECTIVE: The patient remains about the same. He is still hypoxic and short of breath with any exertion such as just sitting up on the side of the bed. That would be his main complaint. He is somewhat depressed about still being in the hospital which would be reasonable. His and daughter were present during this evaluation. OBJECTIVE: GENERAL: The patient appears comfortable at rest. VITAL SIGNS: Temperature is 36.1. Cardiac rate is 66 per minute. Respiratory rate at rest is 18 breaths per minute. Blood pressure today 134/67. CARDIOVASCULAR: The rhythm is generally regular with an occasional PVC. RESPIRATORY: Saturation at the time of my exam was 87% on 6 liter nasal cannula. Diffuse rales are heard throughout both lung mcwilliams posteriorly in all areas. EXTREMITIES: Shows improvement in the bilateral edema. It would be approximately +1. He did have a good diuresis yesterday of 3100 mL for a net -1437 mL. LABORATORY DATA: BUN today is 30 with a creatinine of 1.19. Electrolytes are within the limits of normal. Blood sugar was 114. The cancer markers were abnormal. CEA was elevated at 10. CA 19-9 was elevated slightly at 40. CA 27-29 was 167 with normal less than 38. CA-125 was 194 with normal less than 35. PSA was normal. I am not sure of the meaning of the significant elevations of the tumor markers. IMPRESSIONS: 1. Acute respiratory failure with hypoxia. 2. Right upper lobe consolidation. 3. Malignant right pleural effusion - adenocarcinoma. 4. 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 5. Obstructive sleep apnea with complex sleep apnea. PLAN: Ideally, one would like to have more tissue to do further studies. It appears that the risk of any procedure would be greater than the presumed benefits. Dr. Rosario and Dr. Heller, and I, all feel the patient would be at high risk for respiratory failure with any type of biopsy or surgical procedure. Clinically, he is overall about as stable as he is going to be. I think it may be time to try and transition him to home soon. Arrangements should be made for him to get a concentrator that can go up to 10 liters of oxygen. [facility] is his home care provider, he states. We will do a very gradual taper of the prednisone. He should go home with his prior respiratory medicines. He should follow with Dr. Heller as out patient. If his pleural fluid reaccumulates, a repeat tap could be done to try and access more fluid. That would seem to be at present the safest and best way to get more specimens if possible. Will sign off for now from a pulmonary perspective. Please call if we can be of assistance. NOLVIA
--- NOTE | 2017-08-16 17:08 | Progress Note ---
Subjective Date of Service: August 16, 2017. Subjective Pt evaluation today including: conversation w/ patient, conversation w/ family , physical exam, chart review, lab review, review of studies, review of inpatient medication list Generally feeling better, but still desaturation to 80s and feels shortness of breath when up to the toilet, Denies chest pain, hypertension Problem List Medical Problems: (1) Hypoxemia Status: Acute (2) Pleural effusion, right Status: Acute (3) Pneumoconiosis Status: Chronic (4) Pneumonia Status: Acute Review of Systems Constitutional: + weakness, + fatigue, No fever, No chills, No sweats, No weight loss, No problem reported Eyes: No worsening of vision, No eye pain, No redness, No discharge, No diplopia ENT: No hearing loss, No unusual epistaxis, No nasal symptoms, No sore throat, No tinnitus, No dental problems, No trouble swallowing Respiratory: + cough, + shortness of breath, + dyspnea on exertion, No sputum, No wheezing, No dyspnea at rest, No hemoptysis Cardiac: No chest pain, No orthopnea, No PND, No edema, No claudication, No palpitations Abdomen: No pain, No nausea, No vomiting, No diarrhea, No constipation Musculoskeletal: No joint pain, No muscle pain, No swelling, No calf pain Male : No dysuria, No urinary frequency, No incontinence, No nocturia more than once/night, No slowing stream, No hematuria Neurologic: No memory loss, No paralysis, No weakness, No numbness/tingling, No vertigo, No balance problems Psychiatric: No depression symptoms, No anhedonism, No anxiety, No insomnia, No substance abuse Heme: No abnormal bleeding/bruising, No clotting problems, No swollen lymph nodes, No night sweats Endo: No fatigue, No excessive thirst, No excessive urination Skin: No rash, No itch, No new/changing skin lesions, No color change, No bleeding Objective Vital Signs Date Time Temp Pulse Resp B/P (MAP) Pulse Ox O2 Delivery O2 Flow Rate FiO2 08/16/17 16:00 Nasal Cannula 6.0 08/16/17 15:17 36.4 67 20 146/58 (87) 96 CPAP 08/16/17 13:47 71 21 90 Nasal Cannula 6.0 08/16/17 12:00 Nasal Cannula 6.0 08/16/17 10:59 36.9 60 20 118/69 (85) 88 Nasal Cannula 6.0 08/16/17 08:00 Nasal Cannula 6.0 08/16/17 07:05 66 18 90 Nasal Cannula 6.0 08/16/17 06:25 36.1 64 18 134/67 (89) 93 6.0 08/16/17 04:09 36.2 55 13 138/67 (90) 94 6.0 08/16/17 04:00 CPAP 6.0 08/16/17 02:10 56 18 93 BiPAP/CPAP 6.0 08/16/17 01:02 37.0 59 17 129/63 (85) 92 Nasal Cannula 6.0 08/16/17 00:00 Nasal Cannula 6.0 08/15/17 20:00 Nasal Cannula 6.0 08/15/17 19:26 36.7 62 17 134/63 (86) 92 Nasal Cannula 6.0 08/15/17 19:19 75 18 86 Nasal Cannula 6.0 Physical Exam General Appearance: WD/WN, no apparent distress Eyes: normal inspection, PERRL, EOMI, sclerae normal ENT: normal ENT inspection, hearing grossly normal, pharynx normal Neck: supple, no adenopathy, thyroid normal, no JVD, no carotid bruits, trachea midline Respiratory/Chest: chest non-tender, normal breath sounds, no respiratory distress, no accessory muscle use, + decreased breath sounds, + crackles (Right middle and base occasional crackle), + wheezing (Occasional) Cardiovascular: regular rate, rhythm, no gallop, no JVD, no murmur Abdomen: normal bowel sounds, non tender, soft, no organomegaly, no pulsatile mass Extremities: normal range of motion, non-tender, normal inspection, no pedal edema, no calf tenderness, normal capillary refill, pelvis stable, + swelling ( Trace to 1+ edema) 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iatric: clinical aide II-XII nml as tested, no motor/sensory deficits, alert, normal mood/affect, oriented x 3 Skin: normal color, warm/dry, no rash Lymphatic: no adenopathy Laboratory Results Last 24 Hours Test 08/16/17 08:09 Sodium Level 143 mmol/L Potassium Level 3.5 mmol/L Chloride Level 106 mmol/L Carbon Dioxide Level 32 mmol/L Anion Gap 5.0 mmol/L Blood Urea Nitrogen 30 mg/dl Creatinine 1.19 mg/dl Est Creatinine Clear Calc Drug Dose 70.1 ml/min Estimated GFR () 72.8 Estimated GFR (Non- 62.8 BUN/Creatinine Ratio 24.9 Random Glucose 114 mg/dl Calcium Level 8.3 mg/dl Phosphorus Level 2.5 mg/dl Magnesium Level 2.6 mg/dl Assessment and Plan 66 y/o M Hx ILD, 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 prednisone of steroid, will tapering slowly, titrate oxygen as tolerated Right sided pleural effusion: thoracentesis on 08/08, 900cc out has FDG avid right sided lung nodule that patient has declined EBUS as outpatient, not currently a candidate for any type of bronchoscopy had abdominal and pelvic CT done on August 14, 2017, there was no primary source of malignancy was identified Oncology, pulmonology and chest surgeon on the case, feel any kind of procedure to get tissue biopsy will be high risk for the patient, Now , in one way we are waiting for the genomic study results from previous pleural fluid from thoracentesis, or waiting for reaccumulation of the pleural fluid and send a sample again, patient's oxygen level seems related to stable in 6 L in 2 days, per recommendation of concession stand attendant possible discharge home and follow-up with oncologist and chest surgeon as outpatient with home oxygen, Arrangements should be made for him to get a concentrator that can go up to 10 liters of oxygen. [facility] is his home care provider, will need watch caser help Multifocal pneumonia: treat with Zosyn, Vancomycin and Doxycycline, has completed full course of treatment Zithromax stopped due to QT prolongation Possible diastolic CHF exacerbation with fluid overload, which is supported by right lung crackles and lower extremity edema, stable improving Type II NSTEMI due to demand ischemia, manage medically, echo shows preserved EF , per cardiology, no further ischemic work up at this time Possible paroxysmal A. fib, checking EKG, echo was done, results in below * 1. Normal LV size, mild concentric LVH. * 2. Normal LV systolic function. LVEF 55-60%. Abnormal septal motion consistent with RV volume/pressure overload. * 3. Mildly dilated RV with normal RV function. * 4. Compared with prior study on 03/05/2017: No significant changes. Continue oral Lasix, will watch renal function Acute kidney injury, resolving, today's creatinine is better on diuretic Full code - heparin prophylaxis I discussed with patient and patient's family about patient's conditions, initially planning to have chest surgeon and oncologist have family meeting at 2 :10pm, unfortunately they are not available, explain to patient's and patient's family about this, they may want to go to [facility] for [facility] opinion Continued [facility] stay due to: multiple IV medications needed Discharge planning: home with home health
--- NOTE | 2017-08-16 19:31 | SURGERY PROGRESS NOTE ---
DATE: 08/16/2017 Mr. Ratliff is seen today with his and daughter. They are waiting the genomic studies. He has a cancer with a malignant pleural effusion probably originating in his right upper lobe, primary; however, none of them immunohistochemical stains point to the primary. At this point, we are still waiting for the genomic studies. I discussed this with pathology today. NOLVIA
[2017-08-16] MEDS: MAGNESIUM OXIDE 400 MG TAB PO SCH (20:55)
[2017-08-16] MEDS: ASPIRIN 81 MG ECTAB PO SCH (20:55)
[2017-08-17] VITALS (11 sets, daily range): BP systolic 129–143; BP diastolic 73–76; PULSE 54–74; TEMP 36.3–37; O2SAT 85–93
[2017-08-17] MEDS: HEPARIN SOD 5000 UNIT/0.5 ML CARP SQ SCH ×2 (00:03→07:54)
[2017-08-17] MEDS: ALBUT/IPRATROP 3MG/0.5MG NEB 3 ML VIAL INH SCH ×2 (02:08→07:18)
[2017-08-17 06:40] LABS: CALCIUM 8.3 mg/dl (8.5-10.1); CREATININE 1.13 mg/dl (0.60-1.40); PHOSPHORUS 2.6 mg/dl (2.5-4.9); POTASSIUM 3.7 mmol/L (3.5-5.1)
[2017-08-17] MEDS: ATORVASTATIN 40 MG TAB PO SCH (07:51)
[2017-08-17] MEDS: PANTOprazole SOD 40 MG TAB PO SCH (07:51)
[2017-08-17] MEDS: POTASSIUM CHLORIDE 20 MEQ TABCR PO SCH (07:51)
[2017-08-17] MEDS: FUROSEMIDE 20 MG TAB PO SCH (07:51)
[2017-08-17] MEDS: HYDROCHLOROTHIAZIDE 25 MG TAB PO SCH (07:51)
[2017-08-17] MEDS: VALSARTAN 80 MG TAB PO SCH (07:52)
[2017-08-17] MEDS: PREGABALIN 150 MG CAP PO SCH (07:56)
[2017-08-17] MEDS ORDERED: PRD20 PO (11:43)
[2017-08-17] MEDS ORDERED: LSX20 PO (11:43)
[2017-08-17] MEDS ORDERED: HYDR25TA5 PO (11:43)
[2017-08-17] MEDS ORDERED: MGNO400 PO (11:43)
[2017-08-17] MEDS ORDERED: DVN80 PO (11:43)
[2017-08-17] MEDS ORDERED: LPT40 PO (11:43)
[2017-08-17] MEDS ORDERED: MCRK20 PO (11:43)
--- NOTE | 2017-08-17 11:45 | Discharge Instructions ---
Discharge Instructions Date of Service August 17, 2017. 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, you need to follow up with oncologist and chest surgeon as instructed will tapering oral Prednisone slowly, titrate as in below: 20mg tab 3 tab for 3 days, then 2.5 tab daily for 5 days, then 2 tab daily, for 5 days , then 1.5 tab daily , for 5 days, then 1 tab daily for 5 days, then stop you possible diastolic heart congestion exacerbation, will continue fluid restriction at 1.8 L daily, and daily weight, and Continue oral Lasix, 60 mg po daily, need to follow up with PCP for labs of BMP , mag in 5-7 days Full code - heparin prophylaxis - you need to follow up with your primary care physician in 1 week, - take medication as instructed, never overdose or any misuse, or take with alcohol, because misuse of medicine may cause organ damage or , call me , or your primary care physician if have questions of discharge medicaitons. - call your primary care physician, or go to local emergency room if has any fever/chill, chest pain, shortness of breathing, nausea/vomiting/abdominal pain , facial droop/slurry speech/local weakness, or if has any questions. - fall precaution - diet as instructed - you need to follow up with your subspecialist, such as Dr. Whitman, and Dr. Castro, you will get a phone call from their service fro the appointment, but, you need to call if no body call you in 2-3 days. - you should understand that it is important to follow up the above instruction , and "not following the above instruction" may cause delayed or missed care of your medical conditions which may cause permanent organ damage and even . Current Hospital Diet Patient's current hospital diet: AHA Diet (Heart Healthy) Discharge Diet Recommended Diet: AHA Diet (Heart Healthy) Pending Studies Studies pending at discharge: yes List of pending studies: more pathology report from pleural fluid Laboratory Results Meds Administered (Past 24Hrs) Medications (Trade) Dose Ordered Sig/Gail Route Start Time Stop Time Status Last Admin Dose Admin Furosemide (Lasix Tab) 60 mg DAILY PO 08/16/17 09:00 09/10/17 08:59 08/17/17 07:51 60 MG Furosemide (Lasix Tab) 20 mg NOW STAT PO 08/15/17 12:44 08/15/17 13:03 DC 08/15/17 14:12 20 MG Medical Emergencies . Who to Call and When: Medical Emergencies: If at any time you feel your situation is an emergency, please call 911 immediately. . Non-Emergent Contact Non-Emergency issues call your: Primary Care Provider, Oncologist, Specialist ( chest surgeon ) . . "Provider Documentation" section prepared by Terrell Steele. .
--- NOTE | 2017-08-17 12:57 | Discharge Summary ---
Discharge Summary Date of Service August 17, 2017. 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, you need to follow up with oncologist and chest surgeon as instructed will tapering oral Prednisone slowly, titrate as in below: 20mg tab 3 tab for 3 days, then 2.5 tab daily for 5 days, then 2 tab daily, for 5 days , then 1.5 tab daily , for 5 days, then 1 tab daily for 5 days, then stop you possible diastolic heart congestion exacerbation, will continue fluid restriction at 1.8 L daily, and daily weight, and Continue oral Lasix, 60 mg po daily, need to follow up with PCP for labs of BMP , mag in 5-7 days Full code - heparin prophylaxis - you need to follow up with your primary care physician in 1 week, - take medication as instructed, never overdose or any misuse, or take with alcohol, because misuse of medicine may cause organ damage or , call me , or your primary care physician if have questions of discharge medicaitons. - call your primary care physician, or go to local emergency room if has any fever/chill, chest pain, shortness of breathing, nausea/vomiting/abdominal pain , facial droop/slurry speech/local weakness, or if has any questions. - fall precaution - diet as instructed - you need to follow up with your subspecialist, such as Dr. Whitman, and Dr. Castro, you will get a phone call from their service fro the appointment, but, you need to call if no body call you in 2-3 days. - you should understand that it is important to follow up the above instruction , and "not following the above instruction" may cause delayed or missed care of your medical conditions which may cause permanent organ damage and even . Consultations: Chest surgeon, oncologist, welfare service aide, machine repairman Medication Reconciliation New Medications: Atorvastatin (Lipitor) 40 Mg Tab 40 MG PO QAM for 30 Days, #30 TAB Furosemide (Furosemide) 20 Mg Tab 60 MG PO DAILY for 30 Days, #90 TAB Hydrochlorothiazide (Hydrochlorothiazide) 25 Mg Tab 12.5 MG PO QAM for 30 Days, #15 TAB Magnesium Oxide (Magnesium-Oxide) 400 Mg Tab 400 MG PO QPM for 30 Days, TAB Potassium Chloride (Klor-Con M20) 20 Meq Tabcr 20 MEQ PO QAM for 7 Days Prednisone (Prednisone) 20 Mg Tab 60 MG PO DAILY for 28 Days, #42 TAB 20mg 3 tab for 3 days, then 2.5 tab daily for 5 days, then 2 tab daily, for 5 days , then 1.5 tab daily , for 5 days, then 1 tab daily for 5 days, then 1/2 tab daily for 5 days Valsartan (Diovan) 80 Mg Tab 160 MG PO QAM for 30 Days, #60 TAB Continued Medications: Albuterol Hfa (Ventolin Hfa) 200 Puffs/25372 Mcg Aers 2 PUFFS INH Q4H Aspirin (Aspirin Chewable) 81 Mg Chew 81 MG PO HS, TAB Esomeprazole Magnesium (Nexium) 40 Mg Cap 40 MG PO QAM, CAP Fluticasone Prop/Salmeterol (Advair Diskus 500/50 60 Dose) 1 Ea Aerp 1 PUFF INH BID Ipratropium-Albuterol (Duoneb) 3 Ml Nebu 3 ML INH Q4H Multivitamin (Multivitamin) Tab 1 TAB PO DAILY Pregabalin (Lyrica) 150 Mg Cap 150 MG PO DAILY Umeclidinium [place] (Incruse Ellipta) 62.5 Mcg/Inh Inh 1 PUFF INH DAILY Discontinued Medications: Furosemide (Furosemide) 20 Mg Tab 20 MG PO DAILY Simvastatin (Zocor) 10 Mg Tab 10 MG PO HS, TAB Valsartan/Hctz (Diovan Hct 320MG/25MG) 1 Tab Tab 1 TAB PO QAM, TAB Discharge Exam Generally feeling okay, possible has been stable oxygen saturation at low 90% at 6 L for 1-2 days Still with dyspnea on exertion, however has no chest pain, mild lower extremity swelling Review of Systems: Constitutional: + weakness, + fatigue, No fever, No chills, No sweats, No weight loss, No problem reported Eyes: No worsening of vision, No eye pain, No redness, No discharge, No diplopia, No problem reported ENT: No hearing loss, No unusual epistaxis, No nasal symptoms, No sore throat, No tinnitus, No dental problems, No trouble swallowing, No problem reported Respiratory: + cough, + shortness of breath, + dyspnea on exertion Cardiovascular: + edema Abdomen: No pain, No nausea, No vomiting, No diarrhea, No constipation, No GI bleeding, No problem reported Musculoskeletal: No joint pain, No muscle pain, No swelling, No calf pain, No problem reported Genitourinary - Male: No hematuria, No dysuria, No urinary frequency, No urinary urgency, No urinary hesitancy, No urinary retention, No urinary incontinence, No penile discharge, No lesions, No impotence, No problem reported Neurologic: No memory loss, No paralysis, No weakness, No numbness/tingling , No vertigo, No balance problems, No problem reported Psychiatric: No depression symptoms, No anhedonism, No anxiety, No insomnia , No substance abuse, No problem reported Endocrine: No fatigue, No excessive thirst, No excessive urination, No problem reported Hematologic / Lymphatic: No abnormal bleeding/bruising, No clotting problems , No swollen lymph nodes, No night sweats, No problem reported Integumentary: No rash, No itch, No new/changing skin lesions, No color change, No bleeding, No problem reported Physical Exam: General Appearance: WD/WN, no apparent distress, + obese Eyes: normal inspection, PERRL, EOMI ENT: normal ENT inspection, hearing grossly normal, TMs normal Neck: supple Respiratory/Chest: chest non-tender, + decreased breath sounds, + crackles ( right lower lung) Cardiovascular: regular rate, rhythm Abdomen / GI: normal bowel sounds, non tender Extremities: normal inspection, no calf tenderness 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iatric: manager enterprise II-XII nml as tested, no motor/sensory deficits , alert Skin: normal color Hospital Course 66 y/o M Hx ILD, 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 prednisone of steroid, will tapering slowly, Likely acute on chronic respiratory failure O2 dependent, currently need to be on continuous nasal cannula oxygen 6 L/min Right sided pleural effusion: thoracentesis on 08/08, 900cc out has FDG avid right sided lung nodule that patient has declined EBUS as outpatient, not currently a candidate for any type of bronchoscopy had abdominal and pelvic CT done on August 14, 2017, there was no primary source of malignancy was identified Oncology, pulmonology and chest surgeon on the case, feel any kind of procedure to get tissue biopsy will be high risk for the patient, Now , in one way we are waiting for the genomic study results from previous pleural fluid from thoracentesis, or waiting for reaccumulation of the pleural fluid and send a sample again, patient's oxygen level seems related to stable in 6 L in 3 days, per recommendation of machine repairman possible discharge home and follow-up with oncologist and chest surgeon as outpatient with home oxygen, Arrangements should be made for him to get a concentrator that can go up to 10 liters of oxygen. [facility] is his home care provider, will need manager case management help Multifocal pneumonia: treat with Zosyn, Vancomycin and Doxycycline, has completed full course of treatment Zithromax stopped due to QT prolongation Possible diastolic CHF exacerbation with fluid overload, which is supported by right lung crackles and lower extremity edema, stable improving, patient has been tolerate oral Lasix current dose is 60 mg p.o. daily, will continue, has consult daily weight, free water restrictions, and follow-up with PCP about the labs and renal function Type II NSTEMI due to demand ischemia, manage medically, echo shows preserved EF , per cardiology, no further ischemic work up at this time Possible paroxysmal A. fib, checking EKG, echo was done, results in below * 1. Normal LV size, mild concentric LVH. * 2. Normal LV systolic function. LVEF 55-60%. Abnormal septal motion consistent with RV volume/pressure overload. * 3. Mildly dilated RV with normal RV function. * 4. Compared with prior study on 03/05/2017: No significant changes. 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 examiner, malignancy in pleural fluid, which make him very high risk of readmission , Instructions / Follow-Up you have Severe COPD, Currently is in 6 L/min of [place] O2, need continuously Pleural fluid malignancy, 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, you need to follow up with oncologist and chest surgeon as instructed will tapering oral Prednisone slowly, titrate as in below: 20mg tab 3 tab for 3 days, then 2.5 tab daily for 5 days, then 2 tab daily, for 5 days , then 1.5 tab daily , for 5 days, then 1 tab daily for 5 days, then stop you possible diastolic heart congestion exacerbation, will continue fluid restriction at 1.8 L daily, and daily weight, and Continue oral Lasix, 60 mg po daily, need to follow up with PCP for labs of BMP , mag in 5-7 days Full code - heparin prophylaxis - you need to follow up with your primary care physician in 1 week, - take medication as instructed, never overdose or any misuse, or take with alcohol, because misuse of medicine may cause organ damage or , call me , or your primary care physician if have questions of discharge medicaitons. - call your primary care physician, or go to local emergency room if has any fever/chill, chest pain, shortness of breathing, nausea/vomiting/abdominal pain , facial droop/slurry speech/local weakness, or if has any questions. - fall precaution - diet as instructed - you need to follow up with your subspecialist, such as Dr. Whitman, and Dr. Castro, you will get a phone call from their service fro the appointment, but, you need to call if no body call you in 2-3 days. - you should understand that it is important to follow up the above instruction , and "not following the above instruction" may cause delayed or missed care of your medical conditions which may cause permanent organ damage and even . Total Time Spent: Greater than 30 minutes This includes examination of the patient, discharge planning, medication reconciliation, and communication with other providers. Discharge Instructions Please refer to the electronic Patient Visit Report (Discharge Instructions) for additional information. Additional Copies To Mkie Whitman D.O.; Neena Joya DO; Michael Rosario MD
== END 2017-08-17 13:01 | disposition home or self-care (01) | DRG 180 ==
LOC: C.EDB 10:06 → C.MSICU 14:27 → ENRESERV 14:44 → C.2E 08-08 18:09
PROVIDERS: ADMIT Internal Medicine; ATTEND Hospitalist
PROC: 0W993ZX Drainage of Right Pleural Cavity, Percutaneous Approach, Diagnostic (ICD-10-PCS; principal; 2017-08-08)
DX: C34.11 Malignant neoplasm of upper lobe, right bronchus or lung (principal); J96.21 Acute and chronic respiratory failure with hypoxia; J18.9 Pneumonia, unspecified organism; I21.A1 Myocardial infarction type 2; J91.0 Malignant pleural effusion; J44.0 Chronic obstructive pulmonary disease with (acute) lower respiratory infection; N17.9 Acute kidney failure, unspecified; E87.3 Alkalosis; I11.0 Hypertensive heart disease with heart failure; I50.32 Chronic diastolic (congestive) heart failure; J60 Coalworker's pneumoconiosis; I48.0 Paroxysmal atrial fibrillation; I27.20 Pulmonary hypertension, unspecified; K21.9 Gastro-esophageal reflux disease without esophagitis; E78.5 Hyperlipidemia, unspecified; G47.33 Obstructive sleep apnea (adult) (pediatric); I25.10 Atherosclerotic heart disease of native coronary artery without angina pectoris; Z79.82 Long term (current) use of aspirin; Z79.899 Other long term (current) drug therapy; Z87.891 Personal history of nicotine dependence; Z95.5 Presence of coronary angioplasty implant and graft; Z99.81 Dependence on supplemental oxygen; Z51.5 Encounter for palliative care